=== PATIENT | male | born 1965 | race Caucasian/White ===

== ENCOUNTER → 2018-01-18 14:16 | Outpatient (REF) | payer BC, SELFPAY ==
[2018-01-18 19:08] LABS: Basophils % 0.6 % (0.1-2.0); Eosinophils # 0.2 K/mm3 (0.0-0.4); Eosinophils % 3.6 % (0.1-12.0); Hematocrit 50.3 % (42.0-52.0); Lymphocytes # 1.5 K/mm3 (0.7-4.5); Lymphocytes % 25.9 K/mm3 (10-50); Mean Corpuscular HGB Conc 31.9 g/dL (31.8-35.4); Mean Corpuscular Hemoglobin 27.5 pg (27.0-31.2); Mean Corpuscular Volume 86.3 fl (80-94); Mean Platelet Volume 8.1 fl (7.4-10.4); Monocytes # 0.4 K/mm3 (0.1-1.0); Monocytes % 7.3 % (1.7-9.3); Neutrophils # 3.7 K/mm3 (1.8-7.8); Neutrophils % 62.6 % (37.0-80.0); Platelet Count 297 K/mm3 (142-424); Red Blood Count 5.83 M/mm3 (4.60-6.20); Red Cell Distribution Width 13.5 % (11.5-17.5); White Blood Count 5.9 K/mm3 (4.8-10.8)
[2018-01-18 19:53] LABS: Alanine Aminotransferase 22 U/L (12-78); Albumin Level 3.9 gm/dL (3.4-5.0); Albumin/Globulin Ratio 1.3 (1.1-1.8); Alkaline Phosphatase 145 U/L (46-116); Anion Gap 12.6 mEq/L (5-15); Aspartate Amino Transferase 12 U/L (15-37); Bilirubin,Total 0.3 mg/dL (0.2-1.0); Blood Urea Nitrogen 14 mg/dL (7-18); Calcium 9.4 mg/dL (8.5-10.1); Carbon Dioxide 28 mmol/L (21.0-32.0); Chloride 102 mmol/L (98-107); Chol/HDL Ratio 6.8 (1-3.5); Cholesterol 230 mg/dL (140-200); Estimated Glomerular Filt Rate 88 ml/min (>60); GFR (African American) 106 ML/MIN (>60); Glucose 365 mg/dL (74-106); HDL Cholesterol 34 mg/dL (27-67); LDL Cholesterol 146 mg/dL (0-130); Potassium 4.6 mmoL/L (3.5-5.1); Sodium 138 mmol/L (136-145); T4 (Thyroxine) 9.8 ug/dl (4.7-13.3); Thyroid Stimulating Hormone 0.84 uIU/ml (0.358-3.740); Total Protein,Serum 6.9 gm/dL (6.4-8.2); Triglycerides 251 mg/dL (30-200); VLDL Cholesterol 50 mg/dL (0-40)
== END ==
LOC: LAB 14:16
PROVIDERS: Visit Provider Nurse Practitioner Family
DX: E11.9 Type 2 diabetes mellitus without complications (principal)
CPT/HCPCS: 80053; 80061; 82652; 83036; 84436; 84443; 85025

== ENCOUNTER → 2018-02-27 15:42 | Outpatient (REF) | payer BC, SELFPAY ==
[2018-02-27 19:36] LABS: Anion Gap 12.3 mEq/L (5-15); Blood Urea Nitrogen 14 mg/dL (7-18); Calcium 9.5 mg/dL (8.5-10.1); Carbon Dioxide 28 mmol/L (21.0-32.0); Chloride 102 mmol/L (98-107); Creatinine,Serum 0.96 mg/dL (0.70-1.30); Estimated Glomerular Filt Rate 82 ml/min (>60); GFR (African American) 99 ML/MIN (>60); Glucose 244 mg/dL (74-106); Potassium 4.3 mmoL/L (3.5-5.1); Sodium 138 mmol/L (136-145)
[2018-02-27 20:37] LABS: Hemoglobin A1C 9.4 % (0.0-7.0)
== END ==
LOC: LAB 15:42
PROVIDERS: Visit Provider Physician Assistant
DX: E11.9 Type 2 diabetes mellitus without complications (principal)
CPT/HCPCS: 80048; 83036

== ENCOUNTER 2018-05-23 01:48 | Inpatient (IN) ==
--- NOTE | 2018-05-23 02:19 | Emergency Department Note ---
ED Disposition Clinical Impression: Pancreatitis Qualifiers: Chronicity: acute Pancreatitis type: unspecified pancreatitis type Acute pancreatitis complication: no infection or necrosis Qualified Code(s): K85.90 - Acute pancreatitis without necrosis or infection, unspecified Disposition: Admitted as Observation Condition on Discharge: Good Referrals: Prasanth Burt MD [Primary Care Provider] - - Critical Care Critical Care Time: No Attestation: On 05/23/18, the high probability of a clinically significant, sudden or life threatening deterioration of the following system(s) required my full and direct attention, intervention and personal management. The time I documented below is in addition to time spent performing reported procedures but includes the following listed in this critical care notation. Medical Decision Making - Medical Records Medical records reviewed: Yes: I reviewed the patient's medical records. - Romero Inquiry Pt receiving controlled substance: No Vital Signs: 05/23/18 01:55 05/23/18 02:49 Temperature 97.9 F 98.9 F Temperature Source Oral Oral Pulse Rate [Right Brachial] 84 85 Respiratory Rate 16 16 Blood Pressure [Right Arm] 174/111 140/93 Blood Pressure Mean [Right Arm] 132 108 02 Sat by Pulse Oximetry 100 99 Oxygen Delivery Method Room Air - Lab Data Lab results reviewed: Yes: I reviewed the patient's lab results. Lab Results 05/23/18 02:00: Urine Color Yellow, Urine Appearance Clear, Urine pH 6.5, Ur Specific [place] 1.020, Urine Protein Negative, Urine Glucose (UA) 1+, Urine Ketones Negative, Urine Blood Negative, Urine Nitrate Negative, Urine Bilirubin Negative, Urine Urobilinogen 1.0, Ur Leukocyte Esterase Negative, Urine WBC 3-5 , Ur Squamous Epith Cells Occasional, Urine Bacteria Trace 05/23/18 02:00: WBC 10.1, RBC 5.50, Hgb 15.5, Hct 45.9, MCV 83.4, MCH 28.1, MCHC 33.7, RDW 13.5, Plt Count 288, MPV 6.8 L, Neut % (Auto) 63.4, Lymph % (Auto ) 25.1, [place] % (Auto) 8.2, Eos % (Auto) 2.8, Baso % (Auto) 0.5, Neut # (Auto) 6.4, Lymph # (Auto) 2.5, [place] # (Auto) 0.8, Eos # (Auto) 0.3, Baso # (Auto) 0.1 05/23/18 02:00: Sodium 140, Potassium 3.9, Chloride 104, Carbon Dioxide 32, Anion Gap 7.9, BUN 24 H, Creatinine 1.00, Estimated Creat Clear 119, Estimated GFR 78, Est GFR ( Amer) 94, Glucose 158 H, Calcium 9.2, Total Bilirubin 0.4, AST 5 L, ALT 27, Alkaline Phosphatase 116, Total Protein 7.4, Albumin 3.8, Globulin 3.6 H, Albumin/Globulin Ratio 1.1, Amylase 144 H, Lipase 1223 H Result diagrams: 05/23/18 02:00 05/23/18 02:00 Orders (Tests/Meds): ED MEDICATIONS Discontinued Medications Generic Name Dose Route Start Last Admin Trade Name Freq PRN Reason Stop Dose Admin Sodium Chloride 1,000 mls @ 999 mls/hr 05/23/18 02:00 05/23/18 02:49 Sod Chlor 0.9% 1000ml Bag IV 05/23/18 03:00 999 mls/hr .Q1H1M CIARRA Administration Ketorolac Tromethamine 30 mg 05/23/18 01:59 05/23/18 02:49 Toradol 30mg/Ml Vial IV 05/23/18 02:00 30 mg ONCE ONE Administration ORDERS Category Date Time Status CT abdomen pelvis wo con Stat Cat Scan 05/23/18 01:58 Ordered - CT Data CT Scan: Abdomen, Pelvis Time Received: 03:[address] Reviewed: Yes: I have viewed the radiologist's interpretation Preliminary Findings: Abnormal (pancreatitis) Nausea/Vomiting/Diarrhea HPI - General Chief complaint: Back Pain/Injury Stated complaint: Back Pain radiating around to abdomen Time Seen by Provider: 05/23/18 02:19 Mode of Arrival: Ambulatory Source of Information: Patient, Medical Record Limitations: No Limitations Description of Symptoms (Recalled from ER Triage Doc. by RN): Reports right flank/back pain that radiates into his stomach. Denies hx of kidney stones, denies any other symptoms. - History of Present Illness HPI Narrative: upper abd pain wityh rad to back over the last 2 days MD complaint: nausea, vomiting, abdominal pain Onset (ago): day(s) Associated Abdominal Pain: Yes Location of pain: epigastric Severity: moderate Associated symptoms: denies other symptoms - Related Data Home Medications Medication Instructions Recorded Confirmed fluticasone 50 mcg/actuation nasal 1 spray INTRANASAL DAILY g 11/22/17 05/23/18 spray,suspension Aspirin [Low Dose Aspirin EC] 81 mg PO ONCE 05/23/18 05/23/18 Atorvastatin Calcium [Atorvastatin 10 mg PO DAILY 05/23/18 05/23/18 10mg Tab] Ergocalciferol (Vitamin D2) 50,000 unit PO WEEKLY 05/23/18 05/23/18 [Vitamin D2] Lisinopril [Lisinopril 2.5mg Tab] 2.5 mg PO DAILY 05/23/18 05/23/18 Metformin HCl [Glucophage] 1,000 mg PO BID 05/23/18 05/23/18 Pantoprazole Sodium [Protonix 40mg 40 mg PO DAILY 05/23/18 05/23/18 tablet] buPROPion HCl [Wellbutrin 75mg 75 mg PO BID 05/23/18 05/23/18 Tablet] glipiZIDE [Glipizide ER] 10 mg PO DAILY 05/23/18 05/23/18 Allergies Allergy/AdvReac Type Severity Reaction Status Date / Time CHICKEN MEAT Allergy Unknown THROAT Uncoded 03/28/18 14:56 CLOSES, MOUTH SWELLS [facility] History I have reviewed the patient's past medical history: Yes Medical History: Reports:: Diabetes Mellitus Type 2, Gastroesophageal Reflux Disease(GERD) Denies:: Cancer, MRSA Other Surgeries: Yes: No Previous Surgery Amputation: No Fractures: No - Social History Smoking Status: Never smoker Tobacco Type: cigarettes Alcohol Intake: never Substance Use Type: denies use Occupational Status: employed Housing: house Household Members: spouse - Psychiatric History Expresses thoughts of harming self/others: None Suicide Plan Description: No Plan Family Hx:: Non-contributory ROS Obtained: Yes All systems reviewed & no additional complaints - Constitutional Constitutional: Denies fever(s) - Eyes Eyes: Denies change in vision - ENT Ears, Nose, Mouth, and Throat: Denies sore throat - Cardiovascular Cardiovascular: Denies chest pain - Respiratory Respiratory: No cough - Gastrointestinal Gastrointestingal: Reports: abdominal pain, nausea, vomiting - Genitourinary Male Genitourinary: Denies hematuria - Musculoskeletal Musculoskeletal: Denies joint pain, Denies joint swelling - Integumentary/Breasts Skin/Breast: Denies rash - Neurologic Neurologic: Denies seizure-like activity Physical Exam - General General appearance: in no apparent distress - Head Head exam: normocephalic - Eye Eye exam: Present: PERRL, EOMI. Absent: scleral icterus - ENT ENT exam: Present: mucous membranes dry - Neck Neck exam: Present: trachea midline - Respiratory Respiratory exam: Absent: respiratory distress - Cardiovascular Cardiovascular exam: Present: regular rate - Abdominal Exam Abdominal exam: Present: soft, tenderness Abdominal tenderness: Present: epigastrium, moderate - Extremities Exam Extremities exam: Absent: calf tenderness - Back Exam Back exam: Absent: CVA tenderness (L) - Neurological Exam Neurological exam: Present: alert, oriented X3, CN II-XII intact - Psychiatric Psychiatric exam: Present: normal affect - Skin Skin exam: Absent: rash
[2018-05-23 02:37] LABS: Microscopic, Urine URINE MICROSCOPIC (MICROSCOPIC)
[2018-05-23 02:47] LABS: Basophils # 0.1 K/mm3 (0-0.2); Basophils % 0.5 % (0.1-2.0); Eosinophils # 0.3 K/mm3 (0.0-0.4); Eosinophils % 2.8 % (0.1-12.0); Hematocrit 45.9 % (42.0-52.0); Hemoglobin 15.5 g/dL (14.1-18.0); Lymphocytes # 2.5 K/mm3 (0.7-4.5); Lymphocytes % 25.1 K/mm3 (10-50); Mean Corpuscular HGB Conc 33.7 g/dL (31.8-35.4); Mean Corpuscular Hemoglobin 28.1 pg (27.0-31.2); Mean Corpuscular Volume 83.4 fl (80-94); Mean Platelet Volume 6.8 fl (7.4-10.4); Monocytes # 0.8 K/mm3 (0.1-1.0); Monocytes % 8.2 % (1.7-9.3); Neutrophils # 6.4 K/mm3 (1.8-7.8); Neutrophils % 63.4 % (37.0-80.0); Platelet Count 288 K/mm3 (142-424); Red Cell Distribution Width 13.5 % (11.5-17.5); White Blood Count 10.1 K/mm3 (4.8-10.8)
[2018-05-23 02:49] LABS: Appearance,Urine CLEAR (Clear); Bilirubin,Urine Negative (Negative); Blood, Urine Negative (Negative); Color,Urine YELLOW (Yellow); Glucose,Urine (UA) 1+ (Negative); Ketones,Urine Negative (Negative); Leukocyte Esterase,Urine Negative (Negative); PH,Urine 6.5 (5.0-8.5); Protein,Urine Negative (Negative)
[2018-05-23 02:54] LABS: Albumin Level 3.8 gm/dL (3.4-5.0); Albumin/Globulin Ratio 1.1 (1.1-1.8); Anion Gap 7.9 mEq/L (5-15); Bilirubin,Total 0.4 mg/dL (0.2-1.0); Calcium 9.2 mg/dL (8.5-10.1); Globulin 3.6 gm/dl (1.3-3.2); Potassium 3.9 mmoL/L (3.5-5.1); Total Protein,Serum 7.4 gm/dL (6.4-8.2)
[2018-05-23 03:04] LABS: Bacteria,Urine Trace /lpf; Squamous Epithelial Cell,Urine Occasional #/hpf (0-5)
[2018-05-23 06:54] LABS: Chol/HDL Ratio 3.4 (1-3.5)
--- NOTE | 2018-05-23 07:35 | Pharmacy Consult Notes ---
[facility] Pharmacy VTE Monitoring - Patient Demographics Admission date: 05/23/18 Report Date: 05/23/18 Time: 07:35 Allergies/Adverse Reactions: Patient Allergies CHICKEN MEAT Allergy (Unknown, Uncoded 03/28/18 14:56) THROAT CLOSES, MOUTH SWELLS Height: 1.78 m Weight: 106.169 kg Patient Problems: Current Active Problems Pancreatitis (Acute) - VTE Risk Labs: VTE Related Lab Results Hgb 15.5 g/dL (14.1-18.0) 05/23/18 02:00 Hct 45.9 % (42.0-52.0) 05/23/18 02:00 Plt Count 288 K/mm3 (142-424) 05/23/18 02:00 BUN 24 mg/dL (7-18) H 05/23/18 02:00 Creatinine 1.00 mg/dL (0.70-1.30) 05/23/18 02:00 Estimated Creat Clear 119 mL/min (0-300) 05/23/18 02:00 VTE Score: 2 VTE Risk Level: Very Low Risk - Prophylaxis VTE Prophylaxis Ordered?: Yes Types of VTE Prophylaxis: TEDS Knee High Location of Applied Device: Bilateral Lower Extremeties - VTE Diagnosis Confirmed Treatment or plan recommended: Continue Current Treatment
[2018-05-23 11:04] LABS: Basophils % 0.4 % (0.1-2.0); Eosinophils # 0.2 K/mm3 (0.0-0.4); Eosinophils % 1.9 % (0.1-12.0); Hemoglobin 14.7 g/dL (14.1-18.0); Lymphocytes # 1.4 K/mm3 (0.7-4.5); Lymphocytes % 11.8 K/mm3 (10-50); Mean Corpuscular HGB Conc 33.4 g/dL (31.8-35.4); Mean Corpuscular Hemoglobin 27.8 pg (27.0-31.2); Mean Corpuscular Volume 83.1 fl (80-94); Mean Platelet Volume 6.9 fl (7.4-10.4); Monocytes % 8.2 % (1.7-9.3); Neutrophils % 77.7 % (37.0-80.0); Platelet Count 267 K/mm3 (142-424); Red Blood Count 5.29 M/mm3 (4.60-6.20); Red Cell Distribution Width 13.6 % (11.5-17.5); White Blood Count 11.6 K/mm3 (4.8-10.8)
--- NOTE | 2018-05-23 13:26 | History & Physical Report ---
*Admission Date: 05/23/18 *Chief complaint: abd pain *History of present illness: this wm who is diabetic presented to ed with progressive upper abd pain with rad to back over the last 2 days and has assoc n/v and presents to ed for eval and treatment - he was found to have elevated lipase and abn ct of pancreas - no etoh and has episode a few yrs ago with no def dx - pt was admitted for eval and treatment [facility] History I have reviewed the patient's past medical history: Yes Medical History: Reports:: Diabetes Mellitus Type 2, Gastroesophageal Reflux Disease(GERD) Denies:: Cancer, MRSA Other Surgeries: Yes: No Previous Surgery Amputation: No Fractures: No - *Social History Educational Level: Completed High School Smoking Status: Never smoker Tobacco Type: cigarettes Alcohol Intake: never Substance Use Type: denies use Occupational Status: employed Housing: house Household Members: spouse - Psychiatric History Expresses thoughts of harming self/others: None Suicide Plan Description: No Plan *Family Hx:: Non-contributory Review of Systems - Review of Systems Review of systems:: pertinent systems reviewed and negative unless documented below - Constitutional Denies fever(s) - Eyes Denies change in vision - ENT Denies sore throat - *Cardiovascular Denies chest pain at rest - *Respiratory Denies cough, Denies shortness of breath with activity - *Gastrointestinal Reports abdominal pain, Reports nausea, Reports vomiting, Denies loose stools, Denies bright, red blood in stools, Denies black, tarry stools - *Genitourinary Denies blood in urine - *Musculoskeletal Denies joint pain - Integumentary/Breasts Denies rash - *Neurologic Denies dizziness, Denies seizure-like activity - Psychiatric Denies anxiety Meds Home Medications Medication Instructions Recorded Confirmed Type fluticasone 50 mcg/actuation nasal 1 spray INTRANASAL DAILY g 11/22/17 History spray,suspension Aspirin [Low Dose Aspirin EC] 81 mg PO DAILY 05/23/18 05/23/18 History Atorvastatin Calcium [Atorvastatin 10 mg PO HS 05/23/18 05/23/18 History 10mg Tab] Ergocalciferol (Vitamin D2) 50,000 unit PO WEEKLY 05/23/18 05/23/18 History [Vitamin D2] Metformin HCl [Glucophage] 1,000 mg PO BID 05/23/18 05/23/18 History buPROPion HCl [Wellbutrin 75mg 75 mg PO BID 05/23/18 05/23/18 History Tablet] glipiZIDE [Glipizide ER] 10 mg PO DAILY 05/23/18 05/23/18 History Allergies Allergy/AdvReac Type Severity Reaction Status Date / Time CHICKEN MEAT Allergy Unknown THROAT Uncoded 03/28/18 14:56 CLOSES, MOUTH SWELLS Exam Vital signs and Labs for Last 24 Hours: Temp Pulse Resp BP Pulse Ox 98.9 F 86 18 174/89 97 05/23/18 07:55 05/23/18 07:55 05/23/18 07:55 05/23/18 07:55 05/23/18 07:55 Laboratory Results - last 24 hr 05/23/18 02:00: Urine Color Yellow, Urine Appearance Clear, Urine pH 6.5, Ur Specific [place] 1.020, Urine Protein Negative, Urine Glucose (UA) 1+, Urine Ketones Negative, Urine Blood Negative, Urine Nitrate Negative, Urine Bilirubin Negative, Urine Urobilinogen 1.0, Ur Leukocyte Esterase Negative, Urine WBC 3-5 , Ur Squamous Epith Cells Occasional, Urine Bacteria Trace 05/23/18 02:00: WBC 10.1, RBC 5.50, Hgb 15.5, Hct 45.9, MCV 83.4, MCH 28.1, MCHC 33.7, RDW 13.5, Plt Count 288, MPV 6.8 L, Neut % (Auto) 63.4, Lymph % (Auto ) 25.1, [place] % (Auto) 8.2, Eos % (Auto) 2.8, Baso % (Auto) 0.5, Neut # (Auto) 6.4, Lymph # (Auto) 2.5, [place] # (Auto) 0.8, Eos # (Auto) 0.3, Baso # (Auto) 0.1 05/23/18 02:00: Sodium 140, Potassium 3.9, Chloride 104, Carbon Dioxide 32, Anion Gap 7.9, BUN 24 H, Creatinine 1.00, Estimated Creat Clear 119, Estimated GFR 78, Est GFR ( Amer) 94, Glucose 158 H, Calcium 9.2, Total Bilirubin 0.4, AST 5 L, ALT 27, Alkaline Phosphatase 116, Total Protein 7.4, Albumin 3.8, Globulin 3.6 H, Albumin/Globulin Ratio 1.1, Amylase 144 H, Lipase 1223 H 05/23/18 05:22: Triglycerides 111, Cholesterol 127 L, LDL Cholesterol 68, VLDL Cholesterol 22, HDL Cholesterol 37, Cholesterol/HDL Ratio 3.4 05/23/18 06:30: POC Glucose 97 05/23/18 10:30: WBC 11.6 H, RBC 5.29, Hgb 14.7, Hct 44.0, MCV 83.1, MCH 27.8, MCHC 33.4, RDW 13.6, Plt Count 267, MPV 6.9 L, Neut % (Auto) 77.7, Lymph % (Auto ) 11.8, [place] % (Auto) 8.2, Eos % (Auto) 1.9, Baso % (Auto) 0.4, Neut # (Auto) 9.0 H, Lymph # (Auto) 1.4, [place] # (Auto) 1.0, Eos # (Auto) 0.2, Baso # (Auto) 0.0 05/23/18 10:30: Lipase 648 H 05/23/18 10:58: POC Glucose 120 H I & O for Last 24 hours: Intake & Output 05/21/18 05/22/18 05/23/18 05/24/18 11:59 11:59 11:59 11:59 Intake Total 585 / 585 Output Total 400 / 400 Balance 185 / 185 Weight 234 lb 1 oz - Constitutional no acute distress, obese - *Routine HEENT Exam Eye: Present: EOMI, PERRL. Absent: conjunctival icterus ENT: Present: mucous membranes dry - *Routine Neck Exam Absent: JVD - *Routine Respiratory Exam Present: CTA bilaterally - *Routine Cardiovascular Exam Present: RRR, murmur - *Routine Abdominal Exam Present: soft - *Routine Extremities Exam Absent: calf tenderness - *Routine Skin Exam Present: intact - *Routine Neurological Exam Present: alert, oriented X3, CN II-XII intact - Routine Psychiatric Exam Present: normal affect Assessment and Plan (1) Pancreatitis Current visit: Yes Status: Acute Qualifiers: Chronicity: acute Pancreatitis type: unspecified pancreatitis type Acute pancreatitis complication: no infection or necrosis Qualified Code(s): K85.90 - Acute pancreatitis without necrosis or infection, unspecified Category: Medical Code(s): K85.90 - Acute pancreatitis without necrosis or infection, unspecified (2) Diabetes mellitus Current visit: No Status: Chronic Qualifiers: Diabetes mellitus type: type 2 Diabetes mellitus usp insulin use: without terminal operations manager use Diabetes mellitus complication status: with hyperglycemia Qualified Code(s): E11.65 - Type 2 diabetes mellitus with hyperglycemia Category: Medical Code(s): E11.9 - Type 2 diabetes mellitus without complications
[2018-05-24 06:11] LABS: Anion Gap 12.5 mEq/L (5-15); Calcium 8.5 mg/dL (8.5-10.1); Potassium 3.5 mmoL/L (3.5-5.1)
[2018-05-24 06:12] LABS: Basophils % 0.1 % (0.1-2.0); Eosinophils # 0.1 K/mm3 (0.0-0.4); Eosinophils % 0.3 % (0.1-12.0); Hematocrit 44.5 % (42.0-52.0); Hemoglobin 14.7 g/dL (14.1-18.0); Lymphocytes # 1.3 K/mm3 (0.7-4.5); Lymphocytes % 8.9 K/mm3 (10-50); Mean Corpuscular HGB Conc 33.1 g/dL (31.8-35.4); Mean Corpuscular Hemoglobin 27.5 pg (27.0-31.2); Mean Corpuscular Volume 83.1 fl (80-94); Mean Platelet Volume 6.9 fl (7.4-10.4); Monocytes # 1.3 K/mm3 (0.1-1.0); Monocytes % 8.8 % (1.7-9.3); Neutrophils # 11.9 K/mm3 (1.8-7.8); Neutrophils % 81.8 % (37.0-80.0); Platelet Count 294 K/mm3 (142-424); Red Blood Count 5.36 M/mm3 (4.60-6.20); Red Cell Distribution Width 13.4 % (11.5-17.5); White Blood Count 14.5 K/mm3 (4.8-10.8)
--- NOTE | 2018-05-24 09:32 | Progress Note ---
Internal Medicine - PN: Subj Interval history: still with pain - lipase better Exam Vital signs and Labs for Last 24 Hours: Temp Pulse Resp BP Pulse Ox 98.1 F 112 H 20 140/81 94 L 05/24/18 07:49 05/24/18 07:49 05/24/18 07:49 05/24/18 07:49 05/24/18 07:49 Laboratory Results - last 24 hr 05/23/18 10:30: WBC 11.6 H, RBC 5.29, Hgb 14.7, Hct 44.0, MCV 83.1, MCH 27.8, MCHC 33.4, RDW 13.6, Plt Count 267, MPV 6.9 L, Neut % (Auto) 77.7, Lymph % (Auto) 11.8, [place] % (Auto) 8.2, Eos % (Auto) 1.9, Baso % (Auto) 0.4, Neut # (Auto) 9.0 H, Lymph # (Auto) 1.4, [place] # (Auto) 1.0, Eos # (Auto) 0.2, Baso # (Auto) 0.0 05/23/18 10:30: Lipase 648 H 05/23/18 10:30: Troponin I < 0.02 05/23/18 10:58: POC Glucose 120 H 05/23/18 16:46: POC Glucose 125 H 05/23/18 20:05: POC Glucose 144 H 05/24/18 05:43: WBC 14.5 H, RBC 5.36, Hgb 14.7, Hct 44.5, MCV 83.1, MCH 27.5, MCHC 33.1, RDW 13.4, Plt Count 294, MPV 6.9 L, Neut % (Auto) 81.8 H, Lymph % (Auto) 8.9 L, [place] % (Auto) 8.8, Eos % (Auto) 0.3, Baso % (Auto) 0.1, Neut # (Auto) 11.9 H, Lymph # (Auto) 1.3, [place] # (Auto) 1.3 H, Eos # (Auto) 0.1, Baso # (Auto) 0.0 05/24/18 05:43: Sodium 133 L, Potassium 3.5, Chloride 100, Carbon Dioxide 24 D, Anion Gap 12.5, BUN 16 D, Creatinine 0.89, Estimated Creat Clear 141, Estimated GFR 89, Est GFR ( Amer) 107, Glucose 181 H, Calcium 8.5, Lipase 241 05/24/18 06:16: POC Glucose 156 H I & O for Last 24 hours: Intake & Output 05/21/18 05/22/18 05/23/18 05/24/18 11:59 11:59 11:59 11:59 Intake Total 585 / 585 2296 / 2296 Output Total 400 / 400 1650 / 1650 Balance 185 / 185 646 / 646 Weight 234 lb 1 oz - Constitutional no acute distress - *Routine HEENT Exam Head: Present: normocephalic Eye: Present: EOMI, PERRL ENT: Present: mucous membranes dry - *Routine Neck Exam Present: supple - *Routine Respiratory Exam Present: CTA bilaterally - *Routine Cardiovascular Exam Present: RRR, murmur - *Routine Abdominal Exam Present: soft - *Routine Extremities Exam Absent: full ROM - *Routine Skin Exam Present: intact - *Routine Neurological Exam Present: alert, oriented X3, CN II-XII intact - Routine Psychiatric Exam Present: normal affect Assessment and Plan (1) Pancreatitis Current visit: Yes Status: Acute Qualifiers: Chronicity: acute Pancreatitis type: unspecified pancreatitis type Acute pancreatitis complication: no infection or necrosis Qualified Code(s): K85.90 - Acute pancreatitis without necrosis or infection, unspecified Category: Medical Code(s): K85.90 - Acute pancreatitis without necrosis or infection, unspecified (2) Diabetes mellitus Current visit: No Status: Chronic Qualifiers: Diabetes mellitus type: type 2 Diabetes mellitus intermission coordinator insulin use: without intermission coordinator use Diabetes mellitus complication status: with hyperglycemia Qualified Code(s): E11.65 - Type 2 diabetes mellitus with hyperglycemia Category: Medical Code(s): E11.9 - Type 2 diabetes mellitus without complications
--- NOTE | 2018-05-24 15:00 | Consult Report ---
*Admission Date: 05/23/18 *Chief complaint: Upper abdominal pain *History of present illness: This is a 53-year-old gentleman seen in consultation from the service of Dr. Burt for evaluation regarding pancreatitis and regarding possible gallbladder disease. He presented yesterday to the emergency department with progressive pain in the upper abdomen with some radiation to the back. He had(s) some assoc iated nausea and vomiting. Upon presentation he was discovered to have an elevated lipase of 1223. His liver function studies were essentially normal. A CT scan revealed changes consistent with pancreatitis as he did have some mild peripancreatic head edema with minimal fat stranding. This CT scan was without contrast. Follow-up ultrasound revealed no gallstones, no wall thickening, and no erlin- cholecystic fluid. Mild pancreatic head fullness was noted on the ultrasound. The patient desires alcohol use. The patient states that he does have a few medications that have "possible increased risk of pancreatitis" on the warning label. Review of Systems - Constitutional Denies excessive sweating - Eyes Denies change in vision - ENT Denies change in voice - *Cardiovascular Denies chest pain - *Respiratory Denies cough - *Gastrointestinal Reports abdominal pain, Reports nausea, Reports vomiting, Denies coffee ground vomit, Denies bright, red blood in stools - *Genitourinary Denies blood in urine - *Neurologic Denies dizziness, Denies seizure-like activity - Hematologic/Lymphatic Denies easy bleeding [facility] History Medical History: Reports:: Diabetes Mellitus Type 2, Gastroesophageal Reflux Disease(GERD) Denies:: Cancer, MRSA Other Surgeries: Yes: No Previous Surgery Amputation: No Fractures: No - *Social History Educational Level: Completed High School Smoking Status: Never smoker Tobacco Type: cigarettes Alcohol Intake: never Substance Use Type: denies use Occupational Status: employed Housing: house Household Members: spouse - Psychiatric History Expresses thoughts of harming self/others: None Suicide Plan Description: No Plan *Family Hx:: Non-contributory Meds Home Medications Medication Instructions Recorded Confirmed Type fluticasone 50 mcg/actuation nasal 1 spray INTRANASAL DAILY g 11/22/17 05/23/18 History spray,suspension Aspirin [Low Dose Aspirin EC] 81 mg PO DAILY 05/23/18 05/23/18 History Atorvastatin Calcium [Atorvastatin 10 mg PO HS 05/23/18 05/23/18 History 10mg Tab] Ergocalciferol (Vitamin D2) 50,000 unit PO WEEKLY 05/23/18 05/23/18 History [Vitamin D2] Metformin HCl [Glucophage] 1,000 mg PO BID 05/23/18 05/23/18 History buPROPion HCl [Wellbutrin 75mg 75 mg PO BID 05/23/18 05/23/18 History Tablet] glipiZIDE [Glipizide ER] 10 mg PO DAILY 05/23/18 05/23/18 History Allergies Allergy/AdvReac Type Severity Reaction Status Date / Time chicken derived Allergy Anaphylaxis Verified 05/23/18 13:38 poult Allergy Severe Swelling Uncoded 05/24/18 14:47 of Lip/Tongue/Throat Exam Vital signs and Labs for Last 24 Hours: Temp Pulse Resp BP Pulse Ox 98.1 F 112 H 20 140/81 94 L 05/24/18 07:49 05/24/18 07:49 05/24/18 07:49 05/24/18 07:49 05/24/18 07:49 Laboratory Results - last 24 hr 05/23/18 16:46: POC Glucose 125 H 05/23/18 20:05: POC Glucose 144 H 05/24/18 05:43: WBC 14.5 H, RBC 5.36, Hgb 14.7, Hct 44.5, MCV 83.1, MCH 27.5, MCHC 33.1, RDW 13.4, Plt Count 294, MPV 6.9 L, Neut % (Auto) 81.8 H, Lymph % (Auto) 8.9 L, [place] % (Auto) 8.8, Eos % (Auto) 0.3, Baso % (Auto) 0.1, Neut # (Auto) 11.9 H, Lymph # (Auto) 1.3, [place] # (Auto) 1.3 H, Eos # (Auto) 0.1, Baso # (Auto) 0.0 05/24/18 05:43: Sodium 133 L, Potassium 3.5, Chloride 100, Carbon Dioxide 24 D, Anion Gap 12.5, BUN 16 D, Creatinine 0.89, Estimated Creat Clear 141, Estimated GFR 89, Est GFR ( Amer) 107, Glucose 181 H, Calcium 8.5, Lipase 241 05/24/18 06:16: POC Glucose 156 H 05/24/18 11:41: POC Glucose 172 H I & O for Last 24 hours: Intake & Output 05/22/18 05/23/18 05/24/18 05/25/18 11:59 11:59 11:59 11:59 Intake Total 585 / 585 2296 / 2296 0 / 0 Output Total 400 / 400 1900 / 1900 Balance 185 / 185 396 / 396 0 / 0 Weight 234 lb 1 oz 234 lb 1.001 oz - Constitutional no acute distress - *Routine Respiratory Exam Absent: respiratory distress - *Routine Cardiovascular Exam Present: RRR - *Routine Abdominal Exam Present: soft, tenderness Comments: increased TTP in epigastrum Results - Labs 05/24/18 05:43 05/24/18 05:43 Laboratory Results - last 24 hr 05/23/18 16:46: POC Glucose 125 H 05/23/18 20:05: POC Glucose 144 H 05/24/18 05:43: WBC 14.5 H, RBC 5.36, Hgb 14.7, Hct 44.5, MCV 83.1, MCH 27.5, MCHC 33.1, RDW 13.4, Plt Count 294, MPV 6.9 L, Neut % (Auto) 81.8 H, Lymph % (Auto) 8.9 L, [place] % (Auto) 8.8, Eos % (Auto) 0.3, Baso % (Auto) 0.1, Neut # (Auto) 11.9 H, Lymph # (Auto) 1.3, [place] # (Auto) 1.3 H, Eos # (Auto) 0.1, Baso # (Auto) 0.0 05/24/18 05:43: Sodium 133 L, Potassium 3.5, Chloride 100, Carbon Dioxide 24 D, Anion Gap 12.5, BUN 16 D, Creatinine 0.89, Estimated Creat Clear 141, Estimated GFR 89, Est GFR ( Amer) 107, Glucose 181 H, Calcium 8.5, Lipase 241 05/24/18 06:16: POC Glucose 156 H 05/24/18 11:41: POC Glucose 172 H - Imaging CT scan - abdomen: report reviewed US - abdomen: report reviewed Assessment and Plan (1) Pancreatitis Current visit: Yes Status: Acute Qualifiers: Chronicity: acute Pancreatitis type: unspecified pancreatitis type Acute pancreatitis complication: no infection or necrosis Qualified Code(s): K85.90 - Acute pancreatitis without necrosis or infection, unspecified Category: Medical Code(s): K85.90 - Acute pancreatitis without necrosis or infection, unspecified The patient's pancreatitis is less likely secondary to biliary disease as there is no evidence of gallstones or biliary dilatation. Although the patient's CT s can was without contrast, it does show changes consistent with at least mild pancreatitis and these changes were also noted on ultrasound. No obvious evidence of biliary disease noted on either CT scan or ultrasound. Although the patient's lipase has improved dramatically, the most likely source of his ongoing pain remains pancreatitis. Currently, there is no strong evidence of a biliary source for either the patient's current pain or his pancreatitis. Certainly further/ongoing evaluation with regard to possible biliary disease is warranted; however, the likelihood of an abnormal ejection fraction on hepatobiliary scan is significantly high given his acute illness (pancreatitis). Acute cholecystitis as would be evidenced by lack of tracer in the gallbladder may be evident if the nuclear medicine study was completed; however, no convincing evidence of acute cholecystitis is otherwise noted (specifically no wall thickening or other abnormality on ultrasound). Hold on HIDA (for now) IVFs/Limited PO intake (clears with advancement to low fat reasonable if he continues to improve) Repeat labs in AM (2) Diabetes mellitus Current visit: No Status: Chronic Qualifiers: Diabetes mellitus type: type 2 Diabetes mellitus retirement insulin use: without termite treater helper use Diabetes mellitus complication status: with hyperglycemia Qualified Code(s): E11.65 - Type 2 diabetes mellitus with hyperglycemia Category: Medical Code(s): E11.9 - Type 2 diabetes mellitus without complications
--- NOTE | 2018-05-25 06:39 | Progress Note ---
Subjective Patient reports: pain is less Exam Vital signs and Labs for Last 24 Hours: Temp Pulse Resp BP Pulse Ox 98.2 F 80 14 138/76 98 05/25/18 04:00 05/25/18 04:00 05/25/18 04:00 05/25/18 04:00 05/25/18 04:00 Laboratory Results - last 24 hr 05/24/18 11:41: POC Glucose 172 H 05/24/18 16:39: POC Glucose 160 H 05/24/18 20:17: POC Glucose 133 H 05/25/18 06:05: POC Glucose 122 H I & O for Last 24 hours: Intake & Output 05/22/18 05/23/18 05/24/18 05/25/18 11:59 11:59 11:59 11:59 Intake Total 585 / 585 2296 / 2296 4024 / 4024 Output Total 400 / 400 1900 / 1900 50 / 50 Balance 185 / 185 396 / 396 3974 / 3974 Weight 234 lb 1 oz 234 lb 1.001 oz - Constitutional no acute distress - *Routine Abdominal Exam Present: soft, tenderness Comments: TTP improved Progress Note: A&P (1) Pancreatitis Status: Acute Assessment and plan: improving symptomatically (essentially resolved biochemically) continue treatment as per PCP slow diet advancement as tolerated and as per PCP IVFs to slowly wean as per PCP Current Visit: Yes (2) Diabetes mellitus Status: Chronic Current Visit: No
[2018-05-25 08:49] LABS: Basophils % 0.1 % (0.1-2.0); Eosinophils # 0.2 K/mm3 (0.0-0.4); Eosinophils % 1.2 % (0.1-12.0); Hematocrit 40.4 % (42.0-52.0); Hemoglobin 13.7 g/dL (14.1-18.0); Lymphocytes # 1.5 K/mm3 (0.7-4.5); Lymphocytes % 12.3 K/mm3 (10-50); Mean Corpuscular HGB Conc 33.9 g/dL (31.8-35.4); Mean Corpuscular Hemoglobin 28.3 pg (27.0-31.2); Mean Corpuscular Volume 83.6 fl (80-94); Monocytes # 1.1 K/mm3 (0.1-1.0); Monocytes % 8.5 % (1.7-9.3); Neutrophils # 9.7 K/mm3 (1.8-7.8); Neutrophils % 77.9 % (37.0-80.0); Platelet Count 286 K/mm3 (142-424); Red Blood Count 4.83 M/mm3 (4.60-6.20); Red Cell Distribution Width 13.3 % (11.5-17.5); White Blood Count 12.4 K/mm3 (4.8-10.8)
[2018-05-25 09:02] LABS: Albumin Level 2.6 gm/dL (3.4-5.0); Albumin/Globulin Ratio 0.7 (1.1-1.8); Anion Gap 11.6 mEq/L (5-15); Bilirubin,Total 0.6 mg/dL (0.2-1.0); Calcium 8.4 mg/dL (8.5-10.1); Potassium 3.6 mmoL/L (3.5-5.1); Total Protein,Serum 6.6 gm/dL (6.4-8.2)
--- NOTE | 2018-05-25 13:10 | Progress Note ---
Internal Medicine - PN: Subj *Date: 05/25/18 *Time: 08:30 Exam Vital signs and Labs for Last 24 Hours: Temp Pulse Resp BP Pulse Ox 98.8 F 92 H 16 135/81 93 L 05/25/18 08:00 05/25/18 08:00 05/25/18 08:00 05/25/18 08:00 05/25/18 08:45 Laboratory Results - last 24 hr 05/24/18 16:39: POC Glucose 160 H 05/24/18 20:17: POC Glucose 133 H 05/25/18 06:05: POC Glucose 122 H 05/25/18 08:40: WBC 12.4 H, RBC 4.83, Hgb 13.7 L, Hct 40.4 L, MCV 83.6, MCH 28.3, MCHC 33.9, RDW 13.3, Plt Count 286, MPV 7.0 L, Neut % (Auto) 77.9, Lymph % (Auto) 12.3, Warren % (Auto) 8.5, Eos % (Auto) 1.2, Baso % (Auto) 0.1, Neut # (Auto) 9.7 H, Lymph # (Auto) 1.5, Warren # (Auto) 1.1 H, Eos # (Auto) 0.2, Baso # (Auto) 0.0 05/25/18 08:40: Sodium 138, Potassium 3.6, Chloride 103, Carbon Dioxide 27, Anion Gap 11.6, BUN 16, Creatinine 0.81, Estimated Creat Clear 155, Estimated GFR 99, Est GFR ( Amer) 120, Glucose 134 H, Calcium 8.4 L, Total Bilirubin 0.6, AST 6 L, ALT 24, Alkaline Phosphatase 75, Total Protein 6.6, Albumin 2.6 L, Globulin 4.0 H, Albumin/Globulin Ratio 0.7 L, Amylase 31, Lipase 85 05/25/18 11:40: POC Glucose 117 H I & O for Last 24 hours: Intake & Output 05/23/18 05/24/18 05/25/18 05/26/18 11:59 11:59 11:59 11:59 Intake Total 585 / 585 2296 / 2296 4384 / 4384 Output Total 400 / 400 1900 / 1900 50 / 50 Balance 185 / 185 396 / 396 4334 / 4334 Weight 234 lb 1 oz 234 lb 5 oz - *Routine HEENT Exam Head: Present: normocephalic Eye: Present: EOMI, PERRL ENT: Present: mucous membranes moist - *Routine Neck Exam Present: supple. Absent: lymphadenopathy - *Routine Respiratory Exam Present: CTA bilaterally - *Routine Cardiovascular Exam Present: RRR - *Routine Abdominal Exam Present: tenderness. Absent: distended - *Routine Extremities Exam Absent: cyanosis, clubbing, edema - *Routine Skin Exam Present: warm. Absent: rash - *Routine Neurological Exam Present: alert, oriented X3 Assessment and Plan (1) Pancreatitis Current visit: Yes Status: Acute Qualifiers: Chronicity: acute Pancreatitis type: unspecified pancreatitis type Acute pancreatitis complication: no infection or necrosis Qualified Code(s): K85.90 - Acute pancreatitis without necrosis or infection, unspecified Category: Medical Code(s): K85.90 - Acute pancreatitis without necrosis or infection, unspecified (2) Diabetes mellitus Current visit: No Status: Chronic Qualifiers: Diabetes mellitus type: type 2 Diabetes mellitus ocean transportation intermediary insulin use: without ocean transportation intermediary use Diabetes mellitus complication status: with hyperglycemia Qualified Code(s): E11.65 - Type 2 diabetes mellitus with hyperglycemia Category: Medical Code(s): E11.9 - Type 2 diabetes mellitus without complications - Assessment and plan all Dx Assessment and Plan for all problems:: Rounded with Dr. Burt all orders per [place]
[2018-05-25 20:11] LABS: Creatine Kinase 42 U/L (39-308)
[2018-05-26 01:39] LABS: Creatine Kinase 40 U/L (39-308)
[2018-05-26 05:50] LABS: Basophils % 0.2 % (0.1-2.0); Eosinophils # 0.2 K/mm3 (0.0-0.4); Eosinophils % 1.7 % (0.1-12.0); Hematocrit 38.6 % (42.0-52.0); Hemoglobin 12.8 g/dL (14.1-18.0); Lymphocytes # 1.4 K/mm3 (0.7-4.5); Mean Corpuscular HGB Conc 33.1 g/dL (31.8-35.4); Mean Corpuscular Hemoglobin 27.6 pg (27.0-31.2); Mean Corpuscular Volume 83.3 fl (80-94); Mean Platelet Volume 7.3 fl (7.4-10.4); Monocytes % 10.6 % (1.7-9.3); Neutrophils # 7.1 K/mm3 (1.8-7.8); Neutrophils % 73.6 % (37.0-80.0); Platelet Count 282 K/mm3 (142-424); Red Blood Count 4.63 M/mm3 (4.60-6.20); Red Cell Distribution Width 13.3 % (11.5-17.5); White Blood Count 9.6 K/mm3 (4.8-10.8)
[2018-05-26 06:04] LABS: Albumin Level 2.5 gm/dL (3.4-5.0); Albumin/Globulin Ratio 0.7 (1.1-1.8); Anion Gap 12.3 mEq/L (5-15); Bilirubin,Total 0.7 mg/dL (0.2-1.0); Calcium 8.3 mg/dL (8.5-10.1); Globulin 3.8 gm/dl (1.3-3.2); Potassium 3.3 mmoL/L (3.5-5.1); Total Protein,Serum 6.3 gm/dL (6.4-8.2)
--- NOTE | 2018-05-26 06:30 | Progress Note ---
Subjective Patient reports: still having pain (increased "heartburn and chest pain" yesterday...some response to GI cocktail), other Narrative: The patient states that he had "heartburn and chest pain" yesterday. He states that a "heart workup yesterday showed nothing". He feels "okay now". A GI cocktail was ordered by primary service and he states that "it worked some". He is still requiring narcotics for pain control as he is recovering from pancreatitis. Exam Vital signs and Labs for Last 24 Hours: Temp Pulse Resp BP Pulse Ox 98.0 F 92 H 16 140/68 98 05/26/18 04:00 05/26/18 04:00 05/26/18 04:00 05/26/18 04:00 05/26/18 04:00 Laboratory Results - last 24 hr 05/25/18 08:40: WBC 12.4 H, RBC 4.83, Hgb 13.7 L, Hct 40.4 L, MCV 83.6, MCH 28.3, MCHC 33.9, RDW 13.3, Plt Count 286, MPV 7.0 L, Neut % (Auto) 77.9, Lymph % (Auto) 12.3, [place] % (Auto) 8.5, Eos % (Auto) 1.2, Baso % (Auto) 0.1, Neut # (Auto) 9.7 H, Lymph # (Auto) 1.5, [place] # (Auto) 1.1 H, Eos # (Auto) 0.2, Baso # (Auto) 0.0 05/25/18 08:40: Sodium 138, Potassium 3.6, Chloride 103, Carbon Dioxide 27, Anion Gap 11.6, BUN 16, Creatinine 0.81, Estimated Creat Clear 155, Estimated GFR 99, Est GFR ( Amer) 120, Glucose 134 H, Calcium 8.4 L, Total Bilir ubin 0.6, AST 6 L, ALT 24, Alkaline Phosphatase 75, Total Protein 6.6, Albumin 2.6 L, Globulin 4.0 H, Albumin/Globulin Ratio 0.7 L, Amylase 31, Lipase 85 05/25/18 11:40: POC Glucose 117 H 05/25/18 16:44: POC Glucose 116 H 05/25/18 19:41: Total Creatine Kinase 42, CK-MB (CK-2) < 0.5, CK-MB (CK-2) Rel Index 1.2, Troponin I < 0.02 05/25/18 21:45: POC Glucose 158 H 05/26/18 01:11: Total Creatine Kinase 40, CK-MB (CK-2) < 0.5, CK-MB (CK-2) Rel Index 1.3, Troponin I < 0.02 05/26/18 05:33: WBC 9.6, RBC 4.63, Hgb 12.8 L, Hct 38.6 L, MCV 83.3, MCH 27.6, MCHC 33.1, RDW 13.3, Plt Count 282, MPV 7.3 L, Neut % (Auto) 73.6, Lymph % (Auto) 14.0, Carroll % (Auto) 10.6 H, Eos % (Auto) 1.7, Baso % (Auto) 0.2, Neut # (Auto) 7.1, Lymph # (Auto) 1.4, Carroll # (Auto) 1.0, Eos # (Auto) 0.2, Baso # (Auto) 0.0 05/26/18 05:33: Sodium 139, Potassium 3.3 L, Chloride 104, Carbon Dioxide 26, Anion Gap 12.3, BUN 10 D, Creatinine 0.81, Estimated Creat Clear 155, Estimated GFR 99, Est GFR ( Amer) 120, Glucose 143 H, Calcium 8.3 L, Total Bilirubin 0.7, AST 10 L D, ALT 23, Alkaline Phosphatase 74, Total Protein 6.3 L, Albumin 2.5 L, Globulin 3.8 H, Albumin/Globulin Ratio 0.7 L I & O for Last 24 hours: Intake & Output 05/23/18 05/24/18 05/25/18 05/26/18 11:59 11:59 11:59 11:59 Intake Total 585 / 585 2296 / 2296 4384 / 4384 4326 / 4326 Output Total 400 / 400 1900 / 1900 50 / 50 Balance 185 / 185 396 / 396 4334 / 4334 4326 / 4326 Weight 234 lb 1 oz 234 lb 5 oz - Constitutional no acute distress - *Routine Abdominal Exam Present: soft Progress Note: A&P (1) Pancreatitis Status: Acute Assessment and plan: Biochemically improving... Overall, improving with regard to pain as he is requiring slightly less medication. Current Visit: Yes (2) Diabetes mellitus Status: Chronic Current Visit: No (3) Heartburn Status: Acute Assessment and plan: Esophagogastroduodenoscopy later today Continue PPI Current Visit: Yes (4) Atypical chest pain Status: Acute Current Visit: Yes
--- NOTE | 2018-05-26 09:51 | Progress Note ---
Internal Medicine - PN: Subj *Date: 05/26/18 *Time: 09:30 Exam Vital signs and Labs for Last 24 Hours: Temp Pulse Resp BP Pulse Ox 98.5 F 106 H 18 153/92 96 05/26/18 08:00 05/26/18 08:00 05/26/18 08:00 05/26/18 08:00 05/26/18 08:00 Laboratory Results - last 24 hr 05/25/18 11:40: POC Glucose 117 H 05/25/18 16:44: POC Glucose 116 H 05/25/18 19:41: Total Creatine Kinase 42, CK-MB (CK-2) < 0.5, CK-MB (CK-2) Rel Index 1.2, Troponin I < 0.02 05/25/18 21:45: POC Glucose 158 H 05/26/18 01:11: Total Creatine Kinase 40, CK-MB (CK-2) < 0.5, CK-MB (CK-2) Rel Index 1.3, Troponin I < 0.02 05/26/18 05:33: WBC 9.6, RBC 4.63, Hgb 12.8 L, Hct 38.6 L, MCV 83.3, MCH 27.6, MCHC 33.1, RDW 13.3, Plt Count 282, MPV 7.3 L, Neut % (Auto) 73.6, Lymph % (Auto) 14.0, [place] % (Auto) 10.6 H, Eos % (Auto) 1.7, Baso % (Auto) 0.2, Neut # (Auto) 7.1, Lymph # (Auto) 1.4, [place] # (Auto) 1.0, Eos # (Auto) 0.2, Baso # (Auto) 0.0 05/26/18 05:33: Sodium 139, Potassium 3.3 L, Chloride 104, Carbon Dioxide 26, Anion Gap 12.3, BUN 10 D, Creatinine 0.81, Estimated Creat Clear 155, Estimated GFR 99, Est GFR ( Amer) 120, Glucose 143 H, Calcium 8.3 L, Total Bilirubin 0.7, AST 10 L D, ALT 23, Alkaline Phosphatase 74, Total Protein 6.3 L, Albumin 2.5 L, Globulin 3.8 H, Albumin/Globulin Ratio 0.7 L 05/26/18 06:27: POC Glucose 120 H I & O for Last 24 hours: Intake & Output 05/23/18 05/24/18 05/25/18 05/26/18 11:59 11:59 11:59 11:59 Intake Total 585 / 585 2296 / 2296 4384 / 4384 4566 / 4566 Output Total 400 / 400 1900 / 1900 50 / 50 Balance 185 / 185 396 / 396 4334 / 4334 4566 / 4566 Weight 234 lb 1 oz 234 lb 5 oz - *Routine HEENT Exam Head: Present: normocephalic Eye: Present: EOMI, PERRL ENT: Present: mucous membranes moist - *Routine Neck Exam Present: supple. Absent: lymphadenopathy - *Routine Respiratory Exam Present: CTA bilaterally - *Routine Cardiovascular Exam Present: RRR - *Routine Abdominal Exam Present: soft, normoactive bowel sounds, tenderness - *Routine Extremities Exam Absent: cyanosis, clubbing, edema - *Routine Skin Exam Present: warm. Absent: rash - *Routine Neurological Exam Present: alert, oriented X3 Assessment and Plan (1) Pancreatitis Status: Acute Qualifiers: Chronicity: acute Pancreatitis type: unspecified pancreatitis type Acute pancreatitis complication: no infection or necrosis Qualified Code(s): K85.90 - Acute pancreatitis without necrosis or infection, unspecified Category: Medical Code(s): K85.90 - Acute pancreatitis without necrosis or infection, unspecified (2) Diabetes mellitus Status: Chronic Qualifiers: Diabetes mellitus type: type 2 Diabetes mellitus skilled nursing insulin use: without computer terminal operator use Diabetes mellitus complication status: with hyperglycemia Qualified Code(s): E11.65 - Type 2 diabetes mellitus with hyperglycemia Category: Medical Code(s): E11.9 - Type 2 diabetes mellitus without complications (3) Heartburn Status: Acute Category: Medical Code(s): R12 - Heartburn (4) Atypical chest pain Status: Acute Category: Medical Code(s): R07.89 - Other chest pain
--- NOTE | 2018-05-26 13:59 | Progress Note ---
[facility] Anesthesia Checklist - Structural Data Admitted From: Inpatient Planned Operative Procedure/s: egd Consent for Planned Operative Procedure(s) Verified: Yes - Airway Assessment C-Spine Mobility Assessed: Yes TMJ Mobility Assessed: Yes Dentition: Good Dentition - Neurological Assessment Level of Consciousness: Awake, Alert, Appropriate - Anesthesia Plan Anesthesia Risk discussed: Yes Anesthesia Plan: Verified ASA Class: II Anesthesia Type: [facility] History I have reviewed the patient's past medical history: Yes Medical History: Reports:: Diabetes Mellitus Type 2, Gastroesophageal Reflux Disease(GERD) Denies:: Cancer, MRSA Other Surgeries: Yes: No Previous Surgery Amputation: No Fractures: No - *Social History Educational Level: Completed High School Smoking Status: Never smoker Tobacco Type: cigarettes Alcohol Intake: never Substance Use Type: denies use Occupational Status: employed Housing: house Household Members: spouse - Psychiatric History Expresses thoughts of harming self/others: None Suicide Plan Description: No Plan *Family Hx:: Non-contributory
--- NOTE | 2018-05-26 13:59 | Procedure Note ---
- Procedure: Date: 05/26/18 Procedure Performed:: Esophagogastroduodenoscopy with biopsy Indications:: This is a 53-year-old gentleman currently being treated for pancreatitis of undetermined etiology. He has convalesced fairly well with biochemical resolution of his pancreatitis. Overall, his pain has improved. However, he has persistent epigastric pain and reflux with some symptom resolution noted upon administration of a "GI cocktail". He describes a history of reflux and he also describes a history of "bile reflux" noted on prior esophagogastroduodenoscopy. Performing Provider:: Aldo Salazar MD Referring Provider:: Dr. Burt Sedation:: Monitored anesthesia care Procedure:: After informed consent was obtained the patient was taken to the endoscopy suite. Monitored anesthesia care ensued after he was transferred to the left lateral decubitus position. The gastroscope was advanced. The gastroesophageal junction was at 40 cm. The stomach was entered. Moderate gastritis was noted throughout with the most significant area of inflammatory change along the mid gastric body and antrum. A biopsy of the antrum was obtained. A biopsy of the mid gastric body was also obtained. Retroflexion revealed a fairly small sliding hiatal hernia noted on maximum insufflation. Evaluation of the pylorus revealed a small amount of bile reflux. The pylorus was intubated. The duodenal mucosa appeared relatively normal. The gastroscope was carefully removed and the patient was transferred to recovery. Findings:: Gastroesophageal junction at 40 cm Small sliding hiatal hernia Moderate gastritis Small amount of bile reflux Specimens:: Antral biopsy Mid gastric body biopsy Recommendations:: Continue PPI Begin Questran Complications:: No immediate Estimated blood obtained (mL): 1
--- NOTE | 2018-05-27 07:30 | Progress Note ---
Subjective Patient reports: feels better, pain is less Exam Vital signs and Labs for Last 24 Hours: Temp Pulse Resp BP Pulse Ox 98.9 F 85 18 142/80 91 L 05/27/18 04:00 05/27/18 04:00 05/27/18 04:00 05/27/18 04:00 05/27/18 04:00 Laboratory Results - last 24 hr 05/26/18 17:09: POC Glucose 140 H 05/26/18 21:06: POC Glucose 166 H 05/27/18 06:34: POC Glucose 124 H I & O for Last 24 hours: Intake & Output 05/24/18 05/25/18 05/26/18 05/27/18 11:59 11:59 11:59 11:59 Intake Total 2296 / 2296 4384 / 4384 4566 / 4566 3423 / 3423 Output Total 1900 / 1900 50 / 50 500 / 500 Balance 396 / 396 4334 / 4334 4566 / 4566 2923 / 2923 Weight 234 lb 5 oz - Constitutional no acute distress - *Routine Respiratory Exam Absent: respiratory distress - *Routine Abdominal Exam Present: soft Progress Note: A&P (1) Pancreatitis Status: Acute Assessment and plan: CT yesterday shows some mild progression (with contrast as opposed to prior without). The patient has clinically improved. Continue slow advancement of diet Likely d/c home soon with outpatient follow-up Current Visit: Yes (2) Diabetes mellitus Status: Chronic Current Visit: No (3) Heartburn Status: Acute Assessment and plan: Conintue PPI Current Visit: Yes (4) Atypical chest pain Status: Acute Current Visit: Yes (5) Bile reflux gastritis Status: Acute Assessment and plan: Continue Questran Current Visit: Yes
--- NOTE | 2018-05-27 09:20 | Discharge Summary ---
General - General Admission date:: 05/23/18 Discharge date: 05/27/18 HPI HPI: This is a 53-year-old gentleman seen in consultation from the service of Dr. Burt for evaluation regarding pancreatitis and regarding possible gallbladder disease. He presented yesterday to the emergency department with progressive pain in the upper abdomen with some radiation to the back. He had(s) some associated nausea and vomiting. Upon presentation he was discovered to have an elevated lipase of 1223. His liver function studies were essentially normal. A CT scan revealed changes consistent with pancreatitis as he did have some mild peripancreatic head edema with minimal fat stranding. This CT scan was without contrast. Follow-up ultrasound revealed no gallstones, no wall thickening, and no erlin- cholecystic fluid. Mild pancreatic head fullness was noted on the ultrasound. The patient desires alcohol use. The patient states that he does have a few medications that have "possible increased risk of pancreatitis" on the warning label. Hospital Course Hospital Course: this wm with acute abd pain with elevated lipase and has pancreatitis - pt with slow improvement and was seen by surg with ct and egd - his is a 53-year-old gentleman currently being treated for pancreatitis of undetermined etiology. He has convalesced fairly well with biochemical resolution of his pancreatitis. Overall, his pain has improved. However, he has persistent epigastric pain and reflux with some symptom resolution noted upon administration of a "GI cocktail". He describes a history of reflux and he also describes a history of "bile reflux" noted on prior esophagogastroduodenoscopy. doing ok with dec pain and jaky diet better and will be followed by pcp and surg Gastroesophageal junction at 40 cm Small sliding hiatal hernia Moderate gastritis Small amount of bile refl Objective Vital signs: Temp Pulse Resp BP Pulse Ox 98.4 F 85 16 153/87 92 L 05/27/18 08:00 05/27/18 08:00 05/27/18 08:00 05/27/18 08:00 05/27/18 08:00 no acute distress, obese - *Routine HEENT Exam Head: Present: normocephalic Eye: Present: EOMI, PERRL ENT: Present: mucous membranes dry - *Routine Neck Exam Present: supple - *Routine Respiratory Exam Present: CTA bilaterally - *Routine Cardiovascular Exam Present: RRR. Absent: murmur - *Routine Abdominal Exam Present: soft - *Routine Extremities Exam Absent: calf tenderness - *Routine Skin Exam Present: intact - *Routine Neurological Exam Present: alert, oriented X3, CN II-XII intact - Routine Psychiatric Exam Present: normal affect Results Labs on day of discharge: Labs from last 24 hours 05/27/18 05/26/18 05/26/18 06:34 21:06 17:09 POC Glucose 124 H 166 H 140 H DS: Diagnosis - Discharge Diagnosis (1) Pancreatitis Status: Acute (2) Diabetes mellitus Status: Chronic (3) Heartburn Status: Acute (4) Atypical chest pain Status: Acute (5) Bile reflux gastritis Status: Acute Discharge Plan - Patient Discharge Instructions ACTIVITY: Continue current activity DIET: continue same diet Patient Instructions: Fat-Restricted Diet, DI for Low Back Pain - Follow up Plan Follow up with: Aldo Salazar MD [Staff Physician] - 1 week Disposition: Home, Self-Halfway Medications: Home Medications Medication Instructions Recorded Confirmed Type fluticasone 50 mcg/actuation nasal 1 spray INTRANASAL DAILY g 11/22/17 05/23/18 History spray,suspension Aspirin [Low Dose Aspirin EC] 81 mg PO DAILY 05/23/18 05/23/18 History Atorvastatin Calcium [Atorvastatin 10 mg PO HS 05/23/18 05/23/18 History 10mg Tab] Ergocalciferol (Vitamin D2) 50,000 unit PO WEEKLY 05/23/18 05/23/18 History [Vitamin D2] Metformin HCl [Glucophage] 1,000 mg PO BID 05/23/18 05/23/18 History buPROPion HCl [Wellbutrin 75mg 75 mg PO BID 05/23/18 05/23/18 History Tablet] glipiZIDE [Glipizide ER] 10 mg PO DAILY 05/23/18 05/23/18 History Prescriptions/Medication Reconciliation: New Cholestyramine/Aspartame [Prevalite 4gm Powder Pack] 4 gm PO AC #90 powd.pack Continue fluticasone 50 mcg/actuation nasal spray,suspension 1 spray INTRANASAL DAILY g pantoprazole 40 mg tablet,delayed release 40 mg PO DAILY #90 tab glipiZIDE [Glipizide ER] 10 mg PO DAILY Ergocalciferol (Vitamin D2) [Vitamin D2] 50,000 unit PO WEEKLY buPROPion HCl [Wellbutrin 75mg Tablet] 75 mg PO BID Atorvastatin Calcium [Atorvastatin 10mg Tab] 10 mg PO HS Aspirin [Low Dose Aspirin EC] 81 mg PO DAILY Metformin HCl [Glucophage] 1,000 mg PO BID
== END 2018-05-27 11:10 | disposition home or self-care (01) ==
LOC: ER 01:48 → 2ND 01:48 → OBSVTOIN 03:55 → 2ND 03:59 → UNDODISOB 11:30
PROVIDERS: ADMIT Emergency Medicine; ATTEND Emergency Medicine
CPT/HCPCS: 36415; 71020; 71046; 74160; 74176; 76705; 80048; 80053; 80061; 81001; 82150; 82550; 82553; 82962; 83690; 84484; 85025; 93005; 96365; 96375; 99284; G0378; J2405; Q9967

== ENCOUNTER → 2018-11-08 07:48 | Outpatient (CLI) | payer BC, SELFPAY ==
--- NOTE | 2018-11-08 07:50 | US_ITS ---
US abdomen limited History:Diarrhea after eating, right upper quadrant pain, nausea Ordering Physician:Florencia Pulido MD Patient Age: 53 years Comparison:None Findings: Pancreas:Unremarkable. No obvious mass or abnormal fluid collection. No ductal dilatation Liver:Unremarkable. No obvious mass or abnormal fluid collection. No ductal dilatation Right Kidney:Unremarkable. Normal size and echogenicity. No hydronephrosis Gallbladder:Increase echogenicity somewhat lobular in nature is present along the posterior aspect of the gallbladder consistent with thick sludge. This does not shadow and does not have typical appearance of stones. Small nonshadowing stones however could be obscured. Common bile duct is normal at 3 mm. No gallbladder wall thickening or pericholecystic fluid. IMPRESSION: Thick sludge along the posterior aspect of the gallbladder wall which could obscure small nonshadowing stones otherwise negative
== END ==
PROVIDERS: PCP Emergency Medicine; Visit Provider Emergency Medicine
DX: R19.8 Other specified symptoms and signs involving the digestive system and abdomen (principal); R10.11 Right upper quadrant pain
CPT/HCPCS: 76705

== ENCOUNTER → 2018-11-17 08:17 | Outpatient (CLI) | payer BC, SELFPAY ==
--- NOTE | 2018-11-17 08:21 | NM_ITS ---
NM hepatobiliary wo pharm HISTORY: Right upper quadrant pain with diarrhea and nausea, abnormal gallbladder ultrasound ITS.REASON: RUQ PAIN ORDERING PHYSICIAN: Florencia Pulido MD PATIENT AGE: 53 years COMPARISON: 11/08/2018 DOSE: 7.79 MCI TC Choletec INJ FINDINGS: Homogeneous activity is present within the hepatic parenchyma. The gallbladder was not visualized x 60 m. Small bowel was visualized x 10 m. Since the gallbladder was not visualized x 60 m, 4 mg of morphine was given IV. There was faint visualization of the gallbladder 60 minutes after morphine administration. 0.4 mg Narcan for morphine. There was only minimal activity within the liver at this time therefore, CCK was not administered and gallbladder ejection fraction was not performed. IMPRESSION: Delayed visualization of the gallbladder as described above suggesting chronic inflammation of the cystic duct
== END ==
PROVIDERS: PCP Emergency Medicine; Visit Provider Emergency Medicine
DX: R10.11 Right upper quadrant pain (principal)
CPT/HCPCS: 78226; A9537

== ENCOUNTER → 2018-12-12 10:03 | Outpatient (CLI) | payer BC, SELFPAY ==
[2018-12-12 11:01] LABS: Alanine Aminotransferase 42 U/L (12-78); Albumin Level 3.7 gm/dL (3.4-5.0); Albumin/Globulin Ratio 1.2 (1.1-1.8); Alkaline Phosphatase 117 U/L (46-116); Anion Gap 13.4 mEq/L (5-15); Aspartate Amino Transferase 16 U/L (15-37); Bilirubin,Total 0.6 mg/dL (0.2-1.0); Blood Urea Nitrogen 16 mg/dL (7-18); Calcium 9.5 mg/dL (8.5-10.1); Carbon Dioxide 28 mmol/L (21.0-32.0); Chloride 103 mmol/L (98-107); Creatinine,Serum 0.98 mg/dL (0.70-1.30); Estimated Glomerular Filt Rate 79 ml/min (>60); GFR (African American) 96 ML/MIN (>60); Glucose 239 mg/dL (74-106); Potassium 4.4 mmoL/L (3.5-5.1); Sodium 140 mmol/L (136-145); Total Protein,Serum 6.7 gm/dL (6.4-8.2)
[2018-12-12 11:27] LABS: Basophils % 0.6 % (0.1-2.0); Eosinophils # 0.4 K/mm3 (0.0-0.4); Eosinophils % 4.7 % (0.1-12.0); Hematocrit 49.2 % (42.0-52.0); Hemoglobin 16.2 g/dL (14.1-18.0); Lymphocytes # 2.1 K/mm3 (0.7-4.5); Lymphocytes % 27.9 % (10-50); Mean Corpuscular Hemoglobin 27.8 pg (27.0-31.2); Mean Corpuscular Volume 84.4 fl (80-94); Monocytes # 0.5 K/mm3 (0.1-1.0); Monocytes % 6.3 % (1.7-9.3); Neutrophils # 4.5 K/mm3 (1.8-7.8); Neutrophils % 60.5 % (37.0-80.0); Platelet Count 350 K/mm3 (142-424); Red Blood Count 5.83 M/mm3 (4.60-6.20); Red Cell Distribution Width 13.6 % (11.5-17.5); White Blood Count 7.4 K/mm3 (4.8-10.8)
== END ==
PROVIDERS: Visit Provider Surgery
DX: K82.9 Disease of gallbladder, unspecified (principal)
CPT/HCPCS: 36415; 80053; 85025

== ENCOUNTER → 2019-01-05 13:50 | Outpatient (CLI) | payer BC, SELFPAY ==
[2019-01-05 13:58] LABS: Adenovirus F 40/41, stool Not Detected (NotDetected); Astrovirus Not Detected (NotDetected); Campylobacter Not Detected (NotDetected); Clostridium Difficile A/B, PCR Not Detected (NotDetected); Cryptosporidium Not Detected (NotDetected); Cyclospora Cayetanesis Not Detected (NotDetected); Entamoeba histolytica Not Detected (NotDetected); Enteroaggregative E coli Not Detected (NotDetected); Enteropathogenic E coli Not Detected (NotDetected); Enterotoxigenic E coli Not Detected (NotDetected); Giardia lamblia Not Detected (NotDetected); Norovirus Not Detected (NotDetected); Plesimonas Shigalloides, PCR Not Detected (NotDetected); Rotavirus A Not Detected (NotDetected); Salmonella, PCR Not Detected (NotDetected); Sapovirus Not Detected (NotDetected); Shiga-like toxin E coli Not Detected (NotDetected); Shigella Enterovasive E coli Not Detected (NotDetected); Vibrio Cholerae Not Detected (NotDetected); Vibrio, PCR Not Detected (NotDetected); Yersinia Entercolitica, PCR Not Detected (NotDetected)
== END ==
PROVIDERS: Visit Provider Surgery
DX: R19.7 Diarrhea, unspecified (principal)
CPT/HCPCS: 87506

== ENCOUNTER → 2021-01-24 14:29 | Outpatient (CLI) | payer BC, SELFPAY | PROVIDERS: PCP Family Medicine; Visit Provider Family Medicine | DX: Z20.822 Contact with and (suspected) exposure to COVID-19 (principal) | CPT/HCPCS: U0003 ==

== ENCOUNTER → 2021-11-01 10:23 | Outpatient (CLI) | payer BC, SELFPAY | PROVIDERS: Visit Provider Nurse Practitioner | DX: U07.1 COVID-19 (principal) | CPT/HCPCS: C9803; U0003; U0005 ==

== ENCOUNTER 2021-11-27 20:30 | Emergency (ER) | payer BC, SELFPAY ==
[2021-11-27 20:35] VITALS: BP 154/85; PULSE 94; RESP 18; TEMP 36.6; O2SAT 97; BMI 34.5
--- NOTE | 2021-11-27 20:46 | HMH.EDUTC ---
[facility] Disposition Clinical Impression: Sinusitis Qualifiers: Sinusitis location: unspecified location Chronicity: unspecified Qualified Code(s): J32.9 - Chronic sinusitis, unspecified Disposition: Home, Self-Care Condition on Discharge: Good Instructions: Sinusitis, DI for Sinusitis Additional Instructions: The Solu Medrol injection may raise your Finger stick blood sugar for the next couple of days then should return to normal Take medication as prescribed Continue to use flonase Follow up with your Family Doctor if no improvement or any worsening of symptoms Return if needed Straight to ER if any life threatening symptoms Prescriptions: Amoxicillin/Potassium Clav [Amox-Clav 875-125 mg Tablet] 1 tab PO BID #14 tab Transmission Status: Received by [facility] Referrals: Kevin Jimenez MD [Primary Care Provider] - As needed Time of Disposition: 21:04 Medical Decision Making - Romero Inquiry Pt receiving controlled substance: No Romero was queried for this patient: No Vital Signs: 11/27/21 20:35 11/27/21 21:05 Temperature 97.8 F 97.8 F Temperature Source Oral Pulse Rate 94 H Pulse Rate [Right Brachial] 94 H Respiratory Rate 18 18 Blood Pressure 154/85 H Blood Pressure [Right Arm] 154/85 H Blood Pressure Mean [Right Arm] 108 Blood Pressure Source [Right Arm] Automatic Cuff Blood Pressure Position [Right Arm] Sitting 02 Sat by Pulse Oximetry 97 Oxygen Delivery Method Room Air Orders (Tests/Meds): ED MEDICATIONS Discontinued Medications Generic Name Dose Route Start Last Admin Trade Name Freq PRN Reason Stop Dose Admin Amoxicillin/Clavulanate Potassium 1 each 11/27/21 20:59 11/27/21 21:02 Amoxicillin/Pot Clavulan 500mg Tablet PO 11/27/21 21:00 1 each ONCE ONE Administration Methylprednisolone Sodium Succinate 125 mg 11/27/21 20:58 11/27/21 21:04 Methylprednisolone Sod Succ 125mg Vial IM 11/27/21 20:59 125 mg ONCE ONE Administration Medical Decision Narrative: Medication discussed with pharmacy [facility] HPI - General Stated complaint: drainage Time Seen by Provider: 11/27/21 20:46 Mode of Arrival: Ambulatory Source of Information: Patient Limitations: No Limitations Description of Symptoms (Recalled from Triage Doc. by RN): PATIENT C/O SINUS CONGESTION HEENT Symptoms (Recalled from RN notes): Yes Resp Symptoms (Recalled from RN notes): No Skin Symptoms (Recalled from RN notes): No MS Symptoms (Recalled from RN notes): No Functional Status (Recalled from RN notes): WNL - History of Present Illness Provider Complaint: Patient states that he has been having sinus pain and pressure for a couple weeks States that he had COVID about 3 weeks ago and has continued to have sinus pain and pressure since States that he has tried several OTC medications and it hasnt helped much States that he is having pressure in both ears and feeling of fullness and pressure behind his eyes so today when he was still having it he came in to get checked - Related Data Home Medications Medication Instructions Recorded Confirmed Aspirin [Low Dose Aspirin EC] 81 mg PO DAILY 05/23/18 01/08/19 Ergocalciferol (Vitamin D2) 50,000 unit PO WEEKLY 05/23/18 01/08/19 [Vitamin D2] buPROPion HCL [Wellbutrin SR 75mg 75 mg PO DAILY 10/23/18 01/08/19 Tablet] Cholestyramine/Aspartame 4 gm PO AC 12/13/18 01/08/19 [Prevalite 4gm Powder Pack] loperamide 2 mg tablet 2 mg PO Q4H 12/22/18 01/08/19 ondansetron HCl 4 mg tablet 4 mg PO QID PRN 12/22/18 01/08/19 Previous Rx's Medication Instructions Recorded pantoprazole 40 mg tablet,delayed 40 mg PO DAILY #90 tab 05/23/18 release glipizide 10 mg tablet, extended 10 mg PO DAILY #90 tab 06/22/18 release 24 hr metformin 1,000 mg tablet 1,000 mg PO BID #90 tab 07/04/18 atorvastatin 10 mg tablet 10 mg PO HS #90 tab 10/23/18 Amoxicillin/Potassium Clav 1 tab PO BID #14 tab 11/27/21 [Amox-Clav 875-125 mg Tablet]
[2021-11-27 21:05] VITALS: BP 154/85; PULSE 94; RESP 18; TEMP 36.6; O2SAT 97
== END 2021-11-27 21:12 | disposition home or self-care (01) ==
PROVIDERS: Emergency Provider Nurse Practitioner; PCP Family Medicine
DX: J32.8 Other chronic sinusitis (principal); K21.9 Gastro-esophageal reflux disease without esophagitis; E11.9 Type 2 diabetes mellitus without complications; Z86.16 Personal history of COVID-19; Z79.82 Long term (current) use of aspirin; Z79.84 Long term (current) use of oral hypoglycemic drugs; Z79.899 Other long term (current) drug therapy; Z88.8 Allergy status to other drugs, medicaments and biological substances; Z80.9 Family history of malignant neoplasm, unspecified
CPT/HCPCS: 96372; 99213; G0463

== ENCOUNTER 2022-02-20 01:26 | Emergency (ER) | payer BC, SELFPAY ==
[2022-02-20 01:27] VITALS: BP 180/100; PULSE 109; RESP 16; TEMP 38.3; O2SAT 96; BMI 31.7
[2022-02-20 01:31] VITALS: BMI 31.7
--- NOTE | 2022-02-20 01:31 | XR_ITS ---
PROCEDURE INFORMATION: Exam: XR Chest Exam date and time: 02/20/2022 1:36 AM Age: 56 years old Clinical indication: Cough and other: Congestion TECHNIQUE: Imaging protocol: XR of the chest. Views: 2 views. COMPARISON: CR CXR2V XR chest 2V 10/23/2018 8:38 PM FINDINGS: Lungs: Central opacities with peribronchial cuffing, seen to advantage on the lateral chest radiograph suggest viral process versus reactive airways without convincing consolidation. Pleural spaces: Unremarkable. No pleural effusion. No pneumothorax. Heart/Mediastinum: Unremarkable. No cardiomegaly. Bones/joints: Unremarkable. IMPRESSION: Central opacities with peribronchial cuffing, seen to advantage on the lateral chest radiograph suggest viral process versus reactive airways without convincing consolidation.
[2022-02-20 01:37] LABS: Coronavirus 19, PCR Not Detected (NotDetected); Influenza A, PCR Not Detected (NotDetected); Influenza B, PCR Not Detected (NotDetected)
--- NOTE | 2022-02-20 01:47 | HMH.EDGENADL ---
ED Disposition Clinical Impression: Viral pneumonia Disposition: Home, Self-Care Condition on Discharge: Good Additional Instructions: Take Z-pack as directed on package, tylenol/motrin for temps > 100.4, tessalon pearles for your cough. Follow up with your PCP within the next week, return to ED with any new, worsening, or concerning symptoms. Prescriptions: Azithromycin 250 mg PO DAILY 4 Days #4 tab Transmission Status: [facility] Benzonatate [Benzonatate 150mg Cap] 150 mg PO TID PRN 5 Days #15 cap PRN Reason: Cough Transmission Status: [facility] Referrals: Kevin Jimenez MD [Primary Care Provider] - - Critical Care Critical Care Time: No Attestation: On 02/20/22, the high probability of a clinically significant, sudden or life threatening deterioration of the following system(s) required my full and direct attention, intervention and personal management. The time I documented below is in addition to time spent performing reported procedures but includes the following listed in this critical care notation. Medical Decision Making - Medical Records Medical records reviewed: Yes: I reviewed the patient's medical records. - Romero Inquiry Pt receiving controlled substance: No Vital Signs: 02/20/22 01:27 02/20/22 02:00 02/20/22 02:30 Temperature 100.9 F H Temperature Source Oral Pulse Rate 110 H 106 H Pulse Rate [Right] 109 H Respiratory Rate 16 Blood Pressure 160/93 H 161/102 H Blood Pressure [Right Arm] 180/100 H Blood Pressure Mean [Right Arm] 126 02 Sat by Pulse Oximetry 96 93 L 94 L 02/20/22 03:00 02/20/22 03:30 Temperature Temperature Source Pulse Rate 103 H 99 H Pulse Rate [Right] Respiratory Rate Blood Pressure 158/95 H 158/98 H Blood Pressure [Right Arm] Blood Pressure Mean [Right Arm] 02 Sat by Pulse Oximetry 96 96 - Lab Data Lab Results 02/20/22 01:32: SARS-CoV-2 (PCR) Not detected, Influenza A Untype (PCR) Not detected, Influenza Type B (PCR) Not detected 02/20/22 01:55: WBC 9.2, RBC 5.95, Hgb 16.9, Hct 50.5, MCV 84.8, MCH 28.4, MCHC 33.5, RDW 14.4, Plt Count 245, MPV 7.7, Neut % (Auto) 72.5, Lymph % (Auto) 14.7, [place] % (Auto) 8.3, Eos % (Auto) 2.5, Baso % (Auto) 2.1 H, Neut # (Auto) 6.7, Lymph # (Auto) 1.4, [place] # (Auto) 0.8, Eos # (Auto) 0.2, Baso # (Auto) 0.2 02/20/22 01:55: D-Dimer 0.71 H 02/20/22 01:55: Sodium 136, Potassium 4.0, Chloride 104, Carbon Dioxide 24, Anion Gap 12.0, BUN 18, Creatinine 0.80, Estimated Creat Clear 143, Estimated GFR 99, Est GFR ( Amer) 120, Glucose 289 H, Calcium 9.4, Total Bilirubin 0.5, AST 25, ALT 25, Alkaline Phosphatase 117, Troponin I < 0.01, Total Protein 6.9, Albumin 4.2, Globulin 2.7, Albumin/Globulin Ratio 1.6 02/20/22 01:55: NT-Pro-B Natriuret Pep 74.3 Result diagrams: 02/20/22 01:55 02/20/22 01:55 Orders (Tests/Meds): ED MEDICATIONS Generic Name Dose Route Start Last Admin Trade Name Freq PRN Reason Stop Dose Admin Sodium Chloride 500 mls @ 999 mls/hr 02/20/22 04:00 02/20/22 03:54 Sod Chlor 0.9% 1000ml Bag IV 02/20/22 04:30 999 mls/hr .Q31M CIARRA Administration Discontinued Medications Generic Name Dose Route Start Last Admin Trade Name Freq PRN Reason Stop Dose Admin Acetaminophen 1,000 mg 02/20/22 02:00 02/20/22 02:07 Acetaminophen 500mg Tab PO 02/20/22 02:01 1,000 mg ONCE ONE Administration Azithromycin 500 mg 02/20/22 03:52 02/20/22 03:54 Azithromycin 250mg Tablet PO 02/20/22 03:53 500 mg ONCE ONE Administration Iopamidol 100 ml 02/20/22 03:12 02/20/22 03:14 Iopamidol-370 (76%);100ml Bottle IV 02/20/22 03:13 100 ml ONCE ONE Administration Sodium Chloride 40 ml 02/20/22 03:12 02/20/22 03:14 0.9 % Sodium Chloride 50 Ml Vial IV 02/20/22 03:13 40 ml ONCE ONE Administration Sodium Chloride 10 ml 02/20/22 03:12 02/20/22 03:14 Sodium Chloride 0.9% 10ml Syr (Rad Only) IV
--- NOTE | 2022-02-20 01:51 | ECG_ITS ---
APPROVED REPORT Exam: Resting ECG HR:107 bpm ECG Measurements Heart Rate 107 AXES AL 132 P 56 QRSd 83 QRS 62 QT 322 T 54 QTc 385 Conclusion SINUS TACHYCARDIA ABNORMAL RHYTHM ECG UNCONFIRMED REPORT Electronically signed by : Dewayne Sanchez MD 02/20/2022 09:48:19
[2022-02-20 02:00] VITALS: BP 160/93; PULSE 110; O2SAT 93
[2022-02-20 02:09] LABS: Basophils # 0.2 K/mm3 (0-0.2); Basophils % 2.1 % (0.1-2.0); Eosinophils # 0.2 K/mm3 (0.0-0.4); Eosinophils % 2.5 % (0.1-12.0); Hematocrit 50.5 % (42.0-52.0); Hemoglobin 16.9 g/dL (14.1-18.0); Lymphocytes # 1.4 K/mm3 (0.7-4.5); Lymphocytes % 14.7 % (10-50); Mean Corpuscular HGB Conc 33.5 g/dL (31.8-35.4); Mean Corpuscular Hemoglobin 28.4 pg (27.0-31.2); Mean Corpuscular Volume 84.8 fl (80-94); Mean Platelet Volume 7.7 fl (7.4-10.4); Monocytes # 0.8 K/mm3 (0.1-1.0); Monocytes % 8.3 % (1.7-9.3); Neutrophils # 6.7 K/mm3 (1.8-7.8); Neutrophils % 72.5 % (37.0-80.0); Platelet Count 245 K/mm3 (142-424); Red Blood Count 5.95 M/mm3 (4.60-6.20); Red Cell Distribution Width 14.4 % (11.5-17.5); White Blood Count 9.2 K/mm3 (4.8-10.8)
[2022-02-20 02:21] LABS: D-Dimer 0.71 ug/mL (0.0-0.5)
[2022-02-20 02:27] LABS: Chloride 104 mmol/L (98-107)
[2022-02-20 02:28] LABS: Sodium 136 mmol/L (136-145)
[2022-02-20 02:30] VITALS: BP 161/102; PULSE 106; O2SAT 94
[2022-02-20 02:30] LABS: Alanine Aminotransferase 25 U/L (12-78); Alkaline Phosphatase 117 U/L (38-126); Aspartate Amino Transferase 25 U/L (17-59); Bilirubin,Total 0.5 mg/dl (0.2-1.3); Blood Urea Nitrogen 18 mg/dl (9-20); Creatinine Clearance Estimated 143 mL/min (50-200); Estimated Glomerular Filt Rate 99 ml/min (>60); GFR (African American) 120 ML/MIN (>60)
--- NOTE | 2022-02-20 02:30 | CT_ITS ---
PROCEDURE INFORMATION: Exam: CTA Chest With Contrast Exam date and time: 02/20/2022 3:02 AM Age: 56 years old Clinical indication: Pain; Left-sided; Additional info: Left sided pleuritic chest pain TECHNIQUE: Imaging protocol: Computed tomographic angiography of the chest with contrast. 3D rendering (Not supervised by radiologist): MIP and/or 3D reconstructed images were created by the technologist. Radiation optimization: All CT scans at this facility use at least one of these dose optimization techniques: automated exposure control; mA and/or kV adjustment per patient size (includes targeted exams where dose is matched to clinical indication); or iterative reconstruction. Contrast material: ISOVUE 370; Contrast volume: 70 ml; Contrast route: INTRAVENOUS (IV); COMPARISON: CR XR CHEST 2V 02/20/2022 1:36 AM FINDINGS: Pulmonary arteries: Normal. No pulmonary emboli. Aorta: Unremarkable. No aortic aneurysm. No aortic dissection. Lungs: Right upper lobe calcified granuloma requires no follow-up. Pleural spaces: Unremarkable. No pneumothorax. No pleural effusion. Heart: Low volume pericardial effusions in the noted. Lymph nodes: Multiple mediastinal and right hilar calcified nodes likely related to prior granulomatous process. Bones/joints: Unremarkable. No acute fracture. Soft tissues: Unremarkable. IMPRESSION: No CT angiography evidence of pulmonary embolism.
[2022-02-20 02:31] LABS: Albumin Level 4.2 g/dl (3.5-5.0); Albumin/Globulin Ratio 1.6 (1.1-1.8); Calcium 9.4 mg/dl (8.4-10.2); Carbon Dioxide 24 mmol/L (22.0-30.0); Globulin 2.7 g/dL (1.3-3.2); Glucose 289 mg/dl (74-100); Total Protein,Serum 6.9 g/dl (6.3-8.2)
[2022-02-20 02:40] LABS: NT Pro Brain Natriuretic Pep. 74.3 pg/mL (0-125)
[2022-02-20 02:46] LABS: Troponin I < 0.01 ng/ml (0.00-0.034)
[2022-02-20 03:00] VITALS: BP 158/95; PULSE 103; O2SAT 96
[2022-02-20 03:30] VITALS: BP 158/98; PULSE 99; O2SAT 96
[2022-02-20 04:39] VITALS: BP 158/98; PULSE 99; RESP 18; TEMP 36.8; O2SAT 99
== END 2022-02-20 04:41 | disposition home or self-care (01) ==
PROVIDERS: Emergency Provider Emergency Medicine; PCP Family Medicine
DX: J18.9 Pneumonia, unspecified organism (principal); E11.9 Type 2 diabetes mellitus without complications; K21.9 Gastro-esophageal reflux disease without esophagitis
CPT/HCPCS: 71046; 71275; 80053; 83880; 84484; 85025; 85378; 93005; 96374; 99284; C9803; Q9967; U0003; U0005

== ENCOUNTER 2022-05-28 21:48 | Inpatient (IN) | payer BC, SELFPAY ==
[2022-05-28 21:49] VITALS: BP 158/96; PULSE 101; RESP 16; TEMP 36.8; O2SAT 98; BMI 31.5
--- NOTE | 2022-05-28 22:22 | CT_ITS ---
PROCEDURE INFORMATION: Exam: CT Abdomen And Pelvis With Contrast Exam date and time: 05/28/2022 10:50 PM Age: 57 years old Clinical indication: Abdominal pain; Generalized; Prior surgery; Surgery date: 6+ months; Surgery type: Gb; Patient HX: PT has HX of pancreatitis TECHNIQUE: Imaging protocol: Computed tomography of the abdomen and pelvis with contrast. Radiation optimization: All CT scans at this facility use at least one of these dose optimization techniques: automated exposure control; mA and/or kV adjustment per patient size (includes targeted exams where dose is matched to clinical indication); or iterative reconstruction. Contrast material: ISOVUE; Contrast volume: 75 ml; Contrast route: IV; COMPARISON: ABDPELW CT abdomen pelvis w con 12/19/2018 8:40 PM FINDINGS: Lungs: The lung bases are clear. No pleural effusion. Liver: Unremarkable. No mass. Gallbladder and bile ducts: Status post cholecystectomy. No ductal dilation. Pancreas: There is mild opacification of the peripancreatic fat mild fluid in the left anterior pararenal space. No discrete pancreatic mass or organized fluid collection to suggest pseudocyst. No abnormal enhancement. Spleen: Unremarkable. Adrenal glands: Unremarkable. Kidneys and ureters: No renal mass or hydronephrosis. Stomach and bowel: Unremarkable. No obstruction. No mucosal thickening. Appendix: The appendix is identified and is normal. Intraperitoneal space: No free air. No significant fluid collection. Retroperitoneal space: No bulky lymphadenopathy. Vasculature: Unremarkable. No abdominal aortic aneurysm. Lymph nodes: Unremarkable. No enlarged lymph nodes. Urinary bladder: Unremarkable as visualized. Reproductive: Unremarkable as visualized. Bones/joints: Unremarkable. No acute osseous abnormality. Soft tissues: Small bilateral inguinal hernias contain fat only. IMPRESSION: 1. Acute pancreatitis, mild. No evidence of mass, abnormal enhancement or pseudocyst. 2. Status post cholecystectomy.
[2022-05-28 22:39] LABS: Appearance,Urine CLEAR (Clear); Bilirubin,Urine Negative (Negative); Blood, Urine Negative (Negative); Color,Urine YELLOW (Yellow); Glucose,Urine (UA) 3+ (Negative); Ketones,Urine 2+ (Negative); Leukocyte Esterase,Urine Negative (Negative); Microscopic, Urine URINE MICROSCOPIC (MICROSCOPIC); Nitrate,Urine Negative (Negative); PH,Urine 5.5 (5.0-8.5); Protein,Urine Negative (Negative); Specific Gravity, Urine 1.015 (1.005-1.030); Urobilinogen,Urine 0.2 EU/dl (0.2)
--- NOTE | 2022-05-28 22:44 | HMH.EDABDPAI ---
Discharge Plan Disposition Patient Disposition: Admitted as Observation Chief Complaint: Abdominal Pain Prescriptions Prescriptions: No Action ondansetron HCl [Zofran] 4 mg tablet 4 mg PO QID PRN famotidine 40 mg tablet 40 mg PO HS Label Comments: TAKE 1 TABLET BY MOUTH EVERY DAY AT BEDTIME lovastatin 20 mg tablet 20 mg PO DAILY Label Comments: TAKE 1 TABLET BY MOUTH EVERY DAY Jardiance 25 mg tablet 25 mg PO DAILY Label Comments: TAKE 1 TABLET BY MOUTH EVERY DAY IN THE MORNING montelukast 10 mg tablet 10 mg PO DAILY Label Comments: TAKE 1 TABLET BY MOUTH EVERY DAY pantoprazole 40 mg tablet,delayed release (DR/EC) 40 mg PO DAILY Qty: 90 0RF glipizide 10 mg tablet extended release 24hr 10 mg PO DAILY Qty: 90 0RF metformin 1,000 mg tablet 1,000 mg PO BID Qty: 90 0RF atorvastatin 10 mg tablet 10 mg PO HS Qty: 90 0RF aspirin 81 MG tablet,delayed release (DR/EC) 81 mg PO DAILY ergocalciferol (vitamin D2) 50,000 UNIT capsule 50,000 unit PO WEEKLY bupropion HCl 75 MG tablet 75 mg PO DAILY cholestyramine-aspartame 4 GM powder in packet 4 gm PO AC Discharge ED Provider: Prasanth Burt Abdominal Pain HPI General Chief Complaint: Abdominal Pain Stated Complaint: Middle back pain radiating to front of stomach Time Seen by Provider: 05/28/22 22:44 Mode of Arrival: Ambulatory Source of Information: Patient and Medical Record Limitations: No Limitations Description of Symptoms (Recalled from ER Triage Doc. by RN): Pt reports 2 days of constant squeezing pain from his mid back that radiates to his LUQ. Pt denies N/V/D. Pt has hx of pancreatits and says it feels like previous bouts. History of Present Illness HPI narrative: acute progressive abd pain with hx of pancreatitis MD complaint: abdominal pain Onset (ago): day(s) Consistency: constant Location: LUQ Severity: moderate Radiation: LUQ Migration to: L flank Context: history of similar episodes Associated symptoms: denies other symptoms and nausea Related Data Home Medications Medication Instructions Recorded Confirmed aspirin 81 mg tablet,delayed 81 mg PO DAILY heart health 05/23/18 05/03/22 release ergocalciferol (vitamin D2) 1,250 50,000 unit PO WEEKLY Supplement 05/23/18 05/03/22 mcg (50,000 unit) capsule bupropion HCl 75 mg tablet 75 mg PO DAILY mood 10/23/18 05/03/22 cholestyramine-aspartame 4 gram 4 gm PO AC Cholesterol 12/13/18 05/03/22 oral powder for susp in a packet ondansetron HCl 4 mg tablet 4 mg PO QID PRN 12/22/18 05/03/22 (Zofran) empagliflozin 25 mg tablet 25 mg PO DAILY 05/03/22 05/03/22 (Jardiance) famotidine 40 mg tablet 40 mg PO HS 05/03/22 05/03/22 lovastatin 20 mg tablet 20 mg PO DAILY 05/03/22 05/03/22 montelukast 10 mg tablet 10 mg PO DAILY 05/03/22 05/03/22 Previous Rx's Medication Instructions Recorded pantoprazole 40 mg tablet,delayed 40 mg PO DAILY GERD #90 tabs 05/23/18 release glipizide 10 mg tablet, extended 10 mg PO DAILY Diabetes #90 tabs 06/22/18 release 24 hr metformin 1,000 mg tablet 1,000 mg PO BID Diabetes #90 tabs 07/04/18 atorvastatin 10 mg tablet 10 mg PO HS Cholesterol #90 tabs 10/23/18 Allergies Allergy/AdvReac Type Severity Reaction Status Date / Time metoclopramide [From Reglan] Allergy Severe Chest Pain Verified 05/03/22 11:48 Poultry Allergy Severe Swelling Verified 05/03/22 11:48 of Lip/Tongue/Throat chicken derived Allergy Anaphylaxis Verified 05/03/22 11:48 PFSH PFS Medical History (Updated 02/20/22 @ 03:59 by Chris Porras MD) Abdominal pain Diabetes mellitus Helicobacter pylori (H. pylori) infection Hyperlipidemia Social History Smoking Status: Never smoker alcohol intake: never substance use type: denies use current occupational status: other Travel in the last 8 weeks: None household members: spouse housing: house caffeine: Yes
[2022-05-28 22:46] LABS: Alanine Aminotransferase 24 U/L (12-78); Albumin Level 4.5 g/dl (3.5-5.0); Albumin/Globulin Ratio 1.3 (1.1-1.8); Alkaline Phosphatase 132 U/L (38-126); Amylase 519 U/L (30-110); Anion Gap 12.9 mEq/L (5-15); Aspartate Amino Transferase 25 U/L (17-59); Basophils # 0.1 K/mm3 (0-0.2); Basophils % 0.8 % (0.1-2.0); Bilirubin,Total 0.7 mg/dl (0.2-1.3); Blood Urea Nitrogen 17 mg/dl (9-20); Calcium 9.7 mg/dl (8.4-10.2); Carbon Dioxide 27 mmol/L (22.0-30.0); Chloride 103 mmol/L (98-107); Creatinine Clearance Estimated 112 mL/min (50-200); Eosinophils # 0.2 K/mm3 (0.0-0.4); Eosinophils % 2.2 % (0.1-12.0); Estimated Glomerular Filt Rate 76 ml/min (>60); GFR (African American) 93 ML/MIN (>60); Globulin 3.4 g/dL (1.3-3.2); Glucose 207 mg/dl (74-100); Hematocrit 51.8 % (42.0-52.0); Hemoglobin 16.7 g/dL (14.1-18.0); Lymphocytes # 1.6 K/mm3 (0.7-4.5); Lymphocytes % 15.2 % (10-50); Mean Corpuscular HGB Conc 32.2 g/dL (31.8-35.4); Mean Corpuscular Hemoglobin 27.4 pg (27.0-31.2); Mean Corpuscular Volume 85.1 fl (80-94); Mean Platelet Volume 7.7 fl (7.4-10.4); Monocytes # 0.8 K/mm3 (0.1-1.0); Monocytes % 7.9 % (1.7-9.3); Neutrophils # 7.7 K/mm3 (1.8-7.8); Neutrophils % 73.9 % (37.0-80.0); Platelet Count 299 K/mm3 (142-424); Potassium 3.9 mmoL/L (3.5-5.1); Red Blood Count 6.09 M/mm3 (4.60-6.20); Red Cell Distribution Width 14.3 % (11.5-17.5); Sodium 139 mmol/L (136-145); Total Protein,Serum 7.9 g/dl (6.3-8.2); White Blood Count 10.4 K/mm3 (4.8-10.8)
[2022-05-28 22:51] LABS: C-Reactive Protein 120.1 mg/L (0-4)
[2022-05-28 22:55] LABS: Squamous Epithelial Cell,Urine Occasional #/hpf (0-5); WBC,Urine Occasional #/hpf (0-3)
[2022-05-28 22:57] LABS: Lipase 3914 U/L (23-300)
[2022-05-28 23:00] VITALS: BP 165/98; PULSE 93; RESP 14; O2SAT 98
[2022-05-28 23:04] LABS: Procalcitonin 0.097 ng/mL (0.0-2.0)
--- NOTE | 2022-05-28 23:24 | PC.NURSE ---
DR. GRAHAM ON PHONE WITH DR. AKERS.
--- NOTE | 2022-05-28 23:25 | PC.NURSE ---
PATIENT ADMITTED TO [facility] TO SERVICE OF DR. AKERS TO [facility] WITH ACUTE PANCREATITIS.
[2022-05-28 23:27] LABS: Coronavirus 19, PCR Not Detected (NotDetected); Influenza A, PCR Not Detected (NotDetected); Influenza B, PCR Not Detected (NotDetected)
[2022-05-28 23:28] LABS: Erythrocyte Sedimentation Rate 9 mm/hr (0-20)
[2022-05-29] VITALS (9 sets, daily range): BP systolic 141–172; BP diastolic 75–99; PULSE 94–116; RESP 16–20; TEMP 36.6–37.6; O2SAT 93–99; BMI 33.3
--- NOTE | 2022-05-29 00:33 | PC.NURSE ---
PT ARRIVED TO FLOOR VIA W/C @0037
--- NOTE | 2022-05-29 04:27 | PC.NURSE ---
Patient admitted to floor. Patient a&o x4. Patient complains of pain from back to lt side medicated per mar. Fluids administered per nov. Abd is soft yet tender. Patient is NPO.
[2022-05-29 06:27] LABS: POC Glucose,Bedside 149 (70-110)
--- NOTE | 2022-05-29 09:32 | EXP.HP ---
History of Present Illness *Admission Date: 05/28/22 *Reason for visit:: abdominal pain *History of present illness: Mr. Wolf is a 57-year-old white male with a history of gallstone pancreatitis, diabetes, hyperlipidemia, and Price's esophagus who presented to the emergency room last evening with a 2-day history of progressively worsening left upper quadrant abdominal pain radiating into his back. He had some mild nausea but no vomiting. No fever. No change in his bowel habits. His symptoms were reminiscent of his past bouts with pancreatitis but he has had no problems since his cholecystectomy in 2019. He denies alcohol use. His last lipid profile was normal 3 months ago. Is evaluated in the emergency room and found to have elevated lipase and amylase. CT scan was consistent with mild pancreatitis. No necrosis or cystic formation. He has been admitted at this time for further treatment with bowel rest, IV fluids, and IV pain medication. [facility] Medical History Abdominal pain Diabetes mellitus Helicobacter pylori (H. pylori) infection Hyperlipidemia Type 2 diabetes mellitus Surgical History History of tonsillectomy Hx laparoscopic cholecystectomy Social History Smoking Status: Never smoker alcohol intake: never substance use type: denies use current occupational status: other Travel in the last 8 weeks: None household members: spouse housing: house caffeine: Yes Review of Systems Constitutional Constitutional: Reports as per HPI, Denies fever(s), Denies headache(s) and Denies weight loss Eyes Eyes: Denies change in vision ENT Ears, Nose, Mouth, and Throat: Denies dizziness, Denies dry mouth, Denies headache(s) and Denies hearing loss *Cardiovascular Cardiovascular: Denies chest pain, Denies dyspnea and Denies leg edema *Respiratory Respiratory: Denies chest congestion, Denies cough and Denies dyspnea *Gastrointestinal Gastrointestinal: Reports as per HPI *Genitourinary Genitourinary: Denies difficulty urinating and Denies urinary incontinence *Musculoskeletal Musculoskeletal: Denies joint swelling and Denies muscle weakness *Neurologic Neurologic: Denies dizziness and Denies headache(s) Meds Home Medications and Allergies Home Medications Medication Instructions Recorded Confirmed Type aspirin 81 mg tablet,delayed 81 mg PO DAILY heart health 05/23/18 05/29/22 History release pantoprazole 40 mg tablet,delayed 40 mg PO DAILY GERD #90 tabs 05/23/18 05/29/22 Rx release glipizide 10 mg tablet, extended 10 mg PO DAILY Diabetes #90 tabs 06/22/18 05/29/22 Rx release 24 hr metformin 1,000 mg tablet 1,000 mg PO BID Diabetes #90 tabs 07/04/18 05/29/22 Rx bupropion HCl 75 mg tablet 75 mg PO BID mood 10/23/18 05/29/22 History ondansetron HCl 4 mg tablet 4 mg PO TIDP PRN Nausea 12/22/18 05/29/22 History (Zofran) empagliflozin 25 mg tablet 25 mg PO DAILYDM Diabetes 05/03/22 05/29/22 History (Jardiance) famotidine 40 mg tablet 40 mg PO HS Heartburn 05/03/22 05/29/22 History lovastatin 20 mg tablet 20 mg PO DAILY Cholesterol 05/03/22 05/29/22 History montelukast 10 mg tablet 10 mg PO HS Allergy symptoms 05/03/22 05/29/22 History fluticasone propionate 50 1 spray intranasal DAILY Allergy 05/29/22 05/29/22 History mcg/actuation nasal symptoms spray,suspension New Prescriptions to Start Prescriptions: Allergies Allergy/AdvReac Type Severity Reaction Status Date / Time metoclopramide [From Reglan] Allergy Severe Chest Pain Verified 05/03/22 11:48 Poultry Allergy Severe Swelling Verified 05/03/22 11:48 of Lip/Tongue/Throat chicken derived Allergy Anaphylaxis Verified 05/03/22 11:48 Exam Data for Last 24 hours Vital signs and Labs for Last 24 Hours: Temp Pulse Resp BP Pu
--- NOTE | 2022-05-29 10:14 | HMH.PHAINT1 ---
Pharmacy Intervention Comments: MEDICATION RECONCILIATION COMPLETE USING EXTERNAL PHARMACY FILL HISTORY AND MOST RECENT MD OFFICE VISIT.
--- NOTE | 2022-05-29 10:15 | P.CONPHA_ITS ---
[facility] Pharmacy VTE Monitoring Patient Demographics Admission date: 05/29/22 Report Date: 05/29/22 Time: 10:15 Patient Allergies metoclopramide [From Reglan] Allergy (Severe, Verified 05/03/22 11:48) Chest Pain Poultry Allergy (Severe, Verified 05/03/22 11:48) Swelling of Lip/Tongue/Throat chicken derived Allergy (Verified 05/03/22 11:48) Anaphylaxis Height: 1.78 m Weight: 105.233 kg Current Active Problems (Updated 05/29/22 @ 09:33 by Kevin Jimenez MD) Hypertension (Acute) Type 2 diabetes mellitus (Acute) Acute pancreatitis (Acute) VTE Risk Labs: VTE Related Lab Results Hgb 16.7 g/dL (14.1-18.0) 05/28/22 20:23 Hct 51.8 % (42.0-52.0) 05/28/22 20:23 Plt Count 299 K/mm3 (142-424) 05/28/22 20:23 BUN 17 mg/dl (9-20) 05/28/22 20:23 Creatinine 1.00 mg/dl (0.66-1.25) 05/28/22 20:23 Estimated Creat Clear 112 mL/min (50-200) 05/28/22 20:23 Was VTE Risk Assessment Performed: No VTE Score: 2 VTE Risk Level: Very Low Risk Prophylaxis VTE Prophylaxis Ordered?: Yes Types of VTE Prophylaxis: TEDS Knee High Location of Applied Device: Bilateral Lower Extremeties
--- NOTE | 2022-05-29 10:27 | PC.NURSE ---
Pt walked to the bathroom and had 1 unmeasured void
[2022-05-29 11:49] LABS: POC Glucose,Bedside 97 (70-110)
--- NOTE | 2022-05-29 13:18 | PC.NURSE ---
t had one unmeasured void
[2022-05-29 17:20] LABS: POC Glucose,Bedside 83 (70-110)
[2022-05-29 20:44] LABS: POC Glucose,Bedside 75 (70-110)
--- NOTE | 2022-05-30 03:34 | PC.NURSE ---
Pt is A&O x 4. Pt is currently NPO. Medicating per MAR for pain. No reports of N/V or diarrhea. IV fluids switched from NS to D5NS per Dr. Costa d/t blood glucoses trending down. ABD soft, BS active x 4. No other complaints or needs voiced. Call light in reach.
[2022-05-30 04:00] VITALS: BP 147/88; PULSE 105; RESP 20; TEMP 36.4; O2SAT 96
[2022-05-30 04:38] VITALS: BMI 33.2
[2022-05-30 05:07] LABS: POC Glucose,Bedside 127 (70-110)
--- NOTE | 2022-05-30 05:57 | PC.NURSE ---
iv pump cleared from multiple shifts.
[2022-05-30 07:45] LABS: Alanine Aminotransferase 29 U/L (12-78); Albumin Level 3.4 g/dl (3.5-5.0); Albumin/Globulin Ratio 1.1 (1.1-1.8); Alkaline Phosphatase 100 U/L (38-126); Amylase 83 U/L (30-110); Aspartate Amino Transferase 19 U/L (17-59); Bilirubin,Total 0.9 mg/dl (0.2-1.3); Blood Urea Nitrogen 17 mg/dl (9-20); Calcium 8.9 mg/dl (8.4-10.2); Carbon Dioxide 14 mmol/L (22.0-30.0); Chloride 113 mmol/L (98-107); Chol/HDL Ratio 3.6 (1-3.5); Cholesterol 135 mg/dl (140-200); Creatinine Clearance Estimated 169 mL/min (50-200); Estimated Glomerular Filt Rate 115 ml/min (>60); GFR (African American) 140 ML/MIN (>60); Glucose 153 mg/dl (74-100); HDL Cholesterol 37 mg/dl (40-60); Lipase 167 U/L (23-300); Potassium 3.9 mmoL/L (3.5-5.1); Total Protein,Serum 6.4 g/dl (6.3-8.2); Triglycerides 67 mg/dl (30-150); VLDL Cholesterol 13 mg/dL (0-40)
[2022-05-30 07:53] LABS: Anion Gap 15.9 mEq/L (5-15); Sodium 139 mmol/L (136-145)
[2022-05-30 08:00] VITALS: BP 137/75; PULSE 100; RESP 18; TEMP 36.9; O2SAT 94
--- NOTE | 2022-05-30 09:16 | PC.NURSE ---
pt had 1 unmeasured void
--- NOTE | 2022-05-30 09:20 | EXP.PN ---
Subjective *Date: 05/30/22 *Time: 09:20 Interval history: Continues with left upper quadrant pain and requiring regular doses of IV morphine. No nausea or vomiting. His sugars were trending lower yesterday and IV fluids switched to D5 normal saline Exam Data for Last 24 hours Vital signs and Labs for Last 24 Hours: Temp Pulse Resp BP Pulse Ox 98.5 F 100 H 18 137/75 94 L 05/30/22 08:00 05/30/22 08:00 05/30/22 08:00 05/30/22 08:00 05/30/22 08:00 Laboratory Results - last 24 hr 05/29/22 11:30: POC Glucose 97 05/29/22 17:11: POC Glucose 83 05/29/22 20:30: POC Glucose 75 05/30/22 05:00: POC Glucose 127 H 05/30/22 06:45: Sodium 139, Potassium 3.9, Chloride 113 H, Carbon Dioxide 14 L, Anion Gap 15.9 H, BUN 17, Creatinine 0.70 D, Estimated Creat Clear 169, Estimated GFR 115, Est GFR ( Amer) 140 D, Glucose 153 H, Calcium 8.9, Total Bilirubin 0.9, AST 19, ALT 29, Alkaline Phosphatase 100, Total Protein 6.4, Albumin 3.4 L D, Globulin 3.0, Albumin/Globulin Ratio 1.1, Triglycerides 67, Cholesterol 135 L, VLDL Cholesterol 13, HDL Cholesterol 37 L, Cholesterol/HDL Ratio 3.6 H, Amylase 83, Lipase 167 I & O for Last 24 hours: Intake & Output 05/27/22 05/28/22 05/29/22 05/30/22 11:59 11:59 11:59 11:59 Intake Total 2500 / 2500 3108 / 3108 Output Total 400 / 400 750 / 750 Balance 2099 / 2099 2358 / 2358 Weight 232 lb 232 lb 3.406 oz Constitutional Comments: He is alert and oriented. Color is good. Lungs are clear. Abdomen is soft and nondistended with moderate epigastric and left upper quadrant tenderness. Assessment and Plan *Assessment and plan (1) Acute pancreatitis: Status: Acute Category: Medical Code(s): K85.90 - Acute pancreatitis without necrosis or infection, unspecified (2) Type 2 diabetes mellitus: Status: Acute Category: Medical Code(s): E11.9 - Type 2 diabetes mellitus without complications (3) Hypertension: Status: Acute Category: Medical Code(s): I10 - Essential (primary) hypertension Assessment and plan all Dx Assessment and Plan All Dx:: Labs have improved but still having significant pain. Continue IV fluids and IV pain medication. Advance to clear liquid diet.
[2022-05-30 11:10] LABS: POC Glucose,Bedside 134 (70-110)
[2022-05-30 16:00] VITALS: BP 145/90; PULSE 101; RESP 16; TEMP 36.5; O2SAT 96
--- NOTE | 2022-05-30 18:46 | PC.NURSE ---
PT HAS COMPLAINED OF PAIN OF LT SIDE OF ABD X2 THIS SHIFT, RELIEVED BY PRESCRIBED PAIN MEDS. PT HAS TOLERATED CLEAR LIQUID DIET WELL. INSULIN HELD TODAY, BG IN THE 130S. ALERT X4, UP KERA, INDEPENDENT. NO CONCERNS AT THIS TIME.
[2022-05-30 19:37] VITALS: BP 151/92; PULSE 98; RESP 18; TEMP 37.1; O2SAT 97
[2022-05-31 03:31] VITALS: BP 145/93; PULSE 98; RESP 16; TEMP 37; O2SAT 97
--- NOTE | 2022-05-31 04:14 | PC.NURSE ---
No changes since previous assessment. Pt alert and oriented x 4. Pt is on clear liquid diet and tolerating well - no n/v. Pt still c/o of left sided pain - Medicating per MAR. Iv infusing per order. FSBS ACHS. BS active x 4. Pt ambulating independently in room. No other needs or complains voiced to staff. Call light in reach.
[2022-05-31 05:00] VITALS: BMI 31.4
--- NOTE | 2022-05-31 06:03 | PC.NURSE ---
IV cleared - multiple shifts.
[2022-05-31 06:39] LABS: Alanine Aminotransferase 26 U/L (12-78); Albumin Level 3.3 g/dl (3.5-5.0); Albumin/Globulin Ratio 1.1 (1.1-1.8); Alkaline Phosphatase 101 U/L (38-126); Amylase 54 U/L (30-110); Anion Gap 12.7 mEq/L (5-15); Aspartate Amino Transferase 24 U/L (17-59); Bilirubin,Total 0.6 mg/dl (0.2-1.3); Blood Urea Nitrogen 16 mg/dl (9-20); Calcium 8.9 mg/dl (8.4-10.2); Carbon Dioxide 20 mmol/L (22.0-30.0); Chloride 109 mmol/L (98-107); Creatinine Clearance Estimated 187 mL/min (50-200); Estimated Glomerular Filt Rate 138 ml/min (>60); GFR (African American) 167 ML/MIN (>60); Globulin 2.9 g/dL (1.3-3.2); Glucose 139 mg/dl (74-100); Potassium 3.7 mmoL/L (3.5-5.1); Sodium 138 mmol/L (136-145); Total Protein,Serum 6.2 g/dl (6.3-8.2)
[2022-05-31 08:00] VITALS: BP 163/92; PULSE 89; RESP 19; TEMP 36.8; O2SAT 96
--- NOTE | 2022-05-31 09:39 | P.PN_ITS ---
Subjective *Date: 05/31/22 *Time: 09:39 Interval history: Overall his abdominal pain is improved but cloth bleaching range back tender in the left upper quadrant. No nausea or vomiting. He is tolerating clear liquids. No bowel movement. Exam Data for Last 24 hours Vital signs and Labs for Last 24 Hours: Temp Pulse Resp BP Pulse Ox 98.2 F 89 19 163/92 H 96 05/31/22 08:00 05/31/22 08:00 05/31/22 08:00 05/31/22 08:00 05/31/22 08:00 Laboratory Results - last 24 hr 05/30/22 11:02: POC Glucose 134 H 05/31/22 06:06: Sodium 138, Potassium 3.7, Chloride 109 H, Carbon Dioxide 20 L, Anion Gap 12.7, BUN 16, Creatinine 0.60 L, Estimated Creat Clear 187, Estimated GFR 138, Est GFR ( Amer) 167, Glucose 139 H, Calcium 8.9, Total Bilirubin 0.6, AST 24 D, ALT 26, Alkaline Phosphatase 101, Total Protein 6.2 L, Albumin 3.3 L, Globulin 2.9, Albumin/Globulin Ratio 1.1, Amylase 54 D I & O for Last 24 hours: Intake & Output 05/28/22 05/29/22 05/30/22 05/31/22 11:59 11:59 11:59 11:59 Intake Total 2500 / 2500 3108 / 3108 3634 / 3634 Output Total 400 / 400 750 / 750 0 / 0 Balance 2100 / 2100 2358 / 2358 3634 / 3634 Weight 232 lb 232 lb 3.406 oz 220 lb Constitutional Comments: Alert and oriented. Lungs are clear. Heart is regular. Abdomen is soft and nondistended with mild to moderate left upper quadrant tenderness. Assessment and Plan *Assessment and plan (1) Acute pancreatitis: Status: Acute Category: Medical Code(s): K85.90 - Acute pancreatitis without necrosis or infection, unspecified (2) Type 2 diabetes mellitus: Status: Acute Category: Medical Code(s): E11.9 - Type 2 diabetes mellitus without complications (3) Hypertension: Status: Acute Category: Medical Code(s): I10 - Essential (primary) hypertension Assessment and plan all Dx Assessment and Plan All Dx:: Amylase is normal. Advance to full liquid diet. Blood pressure remains elevated. Continue irbesartan. Possible discharge home tomorrow.
[2022-05-31 10:44] VITALS: BMI 31.4
--- NOTE | 2022-05-31 15:29 | PC.NURSE ---
AOX4, C/O ABD PAIN AND WAS MEDICATED WITH PRN MORPHINE X2 SO FAR THIS SHIFT WITH GOOD EFFECTIVENESS. AMBULATES TO RESTROOM INDEPENDENTLY AND TOLERATES WELL. NO O2 SUPPORT THIS SHIFT. NO COMPLAINTS OF SOB.
[2022-05-31 16:00] VITALS: BP 156/78; PULSE 87; RESP 20; TEMP 36.6; O2SAT 96
[2022-05-31 19:05] LABS: POC Glucose,Bedside 126 (70-110)
[2022-05-31 19:05] LABS: POC Glucose,Bedside 142 (70-110)
[2022-05-31 19:05] LABS: POC Glucose,Bedside 138 (70-110)
[2022-05-31 19:05] LABS: POC Glucose,Bedside 135 (70-110)
[2022-05-31 19:52] VITALS: BP 183/101; PULSE 90; RESP 18; TEMP 36.5; O2SAT 97
[2022-05-31 21:26] LABS: POC Glucose,Bedside 156 (70-110)
--- NOTE | 2022-05-31 21:54 | PC.NURSE ---
20G IV in RAC D/C 20G IV in LAC started at this time.
[2022-05-31 22:45] VITALS: BP 160/96
[2022-06-01] VITALS: BP 160/90
[2022-06-01 04:00] VITALS: BP 170/90; PULSE 95; RESP 17; TEMP 36.9; O2SAT 98
--- NOTE | 2022-06-01 05:04 | PC.NURSE ---
NO ACUTE CHANGES SINCE PREVIOUS ASSESSMENT. PT HAS RESTED INTERMITTENTLY THIS SHIFT. LUNG SOUND REMAIN CLEAR. REMAINS ON ROOM AIR AND IS TOLERATING WELL. PT HAS C/O BACK PAIN THAT RADIATES TO HIS LUQ. MEDICATED PER NOV FOR PAIN. MAALOX GIVEN FOR GI UPSET ONCE THIS SHIFT. BOWEL SOUND PRESENT IN ALL 4 QUADS. AMBULATING IN ROOM INDEPENDENTLY. BP HAS BEEN ELEVATED THIS SHIFT. SBP 160-185, DBP HAS BEEN IN THE 90'S. PT HAS NO C/O SOB OR CP. CALL [place] WITHIN REACH.
[2022-06-01 06:00] VITALS: BMI 32.2
[2022-06-01 08:00] VITALS: BP 193/97; PULSE 92; RESP 18; TEMP 36.7; O2SAT 96
--- NOTE | 2022-06-01 09:19 | EXP.PN ---
Subjective *Date: 06/01/22 *Time: 07:55 Interval history: patient feeling much better today and planning to go home. He is able to eat without discomfort. He did sleep some last night. He is ambulated without difficulty. Bowels have not moved. He is voiding QS. He denies chest pain and shortness of breath. Exam Data for Last 24 hours Vital signs and Labs for Last 24 Hours: Temp Pulse Resp BP Pulse Ox 98.0 F 92 H 18 193/97 H 96 06/01/22 08:00 06/01/22 08:00 06/01/22 08:00 06/01/22 08:00 06/01/22 08:00 Laboratory Results - last 24 hr 05/30/22 20:14: POC Glucose 142 H 05/31/22 05:33: POC Glucose 138 H 05/31/22 11:08: POC Glucose 126 H 05/31/22 16:19: POC Glucose 135 H 05/31/22 21:13: POC Glucose 156 H I & O for Last 24 hours: Intake & Output 05/29/22 05/30/22 05/31/22 06/01/22 11:59 11:59 11:59 11:59 Intake Total 2500 / 2500 3108 / 3108 4114 / 4114 9566 / 9566 Output Total 400 / 400 750 / 750 0 / 0 0 / 0 Balance 2100 / 2100 2358 / 2358 4114 / 4114 9566 / 9566 Weight 232 lb 232 lb 3.406 oz 219 lb 15.988 oz 225 lb Constitutional Constitutional: no acute distress Comments: Conversant *Routine Respiratory Exam Respiratory: Present CTA bilaterally ( anteriorly and posteriorly) *Routine Cardiovascular Exam Cardiovascular: Present RRR *Routine Abdominal Exam Abdominal: Present soft, normoactive bowel sounds and tenderness ( mostly in epigastrium and left upper quadrant) *Routine Extremities Exam Extremities: Absent edema or calf tenderness *Routine Neurological Exam Neurological: Present alert and oriented X3 Assessment and Plan *Assessment and plan (1) Acute pancreatitis: Status: Acute Category: Medical Code(s): K85.90 - Acute pancreatitis without necrosis or infection, unspecified (2) Hypertension: Status: Acute Category: Medical Code(s): I10 - Essential (primary) hypertension (3) Type 2 diabetes mellitus: Status: Acute Category: Medical Code(s): E11.9 - Type 2 diabetes mellitus without complications (4) Hx laparoscopic cholecystectomy: Status: Acute Category: Surgical Code(s): Z90.49 - Acquired absence of other specified parts of digestive tract (5) Hyperlipidemia: Status: Chronic Qualifiers: Hyperlipidemia type: unspecified Qualified Code(s): E78.5 - Hyperlipidemia, unspecified Category: Medical Code(s): E78.5 - Hyperlipidemia, unspecified Plan discharged to home. Assessment and plan all Dx Assessment and Plan All Dx:: Stable for discharge. Continue bland diet. COntinue Losartan and increase dose to 100mg qd. Stop Pantoprazole at is has been known to cause pancreatitis. Switch to Dexilant. He will remain off work until rechecked in office in 2-3 days
--- NOTE | 2022-06-01 15:43 | EXP.DC.SUM ---
General Admission date:: 05/29/22 Discharge date: 06/01/22 HPI HPI HPI: Mr. Wolf is a 57-year-old white male with a history of gallstone pancreatitis, diabetes, hyperlipidemia, and Price's esophagus who presented to the emergency room with a 2-day history of progressively worsening left upper quadrant abdominal pain radiating into his back.? He had some mild nausea but no vomiting.? No fever.? No change in his bowel habits.? His symptoms were reminiscent of his past bouts with pancreatitis but he experienced no problems since his cholecystectomy in 2019.? He denied alcohol use.? His last lipid profile was normal 3 months ago. He was evaluated in the emergency room and found to have elevated lipase and amylase.? CT scan was consistent with mild pancreatitis.? No necrosis or cystic formation.? He was admitted for further treatment with bowel rest, IV fluids, and IV pain medication. Hospital Course Hospital Course Hospital Course: Patient was admitted for IV fluids, GI rest, and symptom/pain treatment. Etiology of the pancreatitis was unclear. Protonix was known to cause pancreatitis and this was held. Irbesartan was initiated for his elevated blood pressure. Diabetes was managed with sliding scale insulin while NPO. Initially patient did require regular doses of IV morphine for left upper quadrant pain. He had no nausea or vomiting. Sugars were trending lower and he was started on D5 normal saline. 05/31/2022 abdominal pain had improved but he was still operator brandy in the left upper quadrant. He had no nausea or vomiting. He was tolerating clear liquids. He had had no bowel movement. Amylase was noted to be normal. Diet was advanced to full liquid diet. On 06/01/2022 patient had tolerated full liquids. He said he felt much better. He was anxious to go home. He had slept and ambulated in the room without difficulty. He was voiding QS. Bowels had not moved. On this date he was discharged home. Patient was discharged to home in stable stable and satisfactory condition. He was to continue Dexilant and losartan in addition to his other home meds. He was to be on a low-fat low-cholesterol diet. Follow-up with Dr. Jimenez on 06/08/2022. Exam Data for Last 24 hours Vital signs and Labs for Last 24 Hours: Temp Pulse Resp BP Pulse Ox 98.0 F 92 H 18 193/97 H 96 06/01/22 08:00 06/01/22 08:00 06/01/22 08:00 06/01/22 08:00 06/01/22 08:00 Laboratory Results - last 24 hr 05/30/22 20:14: POC Glucose 142 H 05/31/22 05:33: POC Glucose 138 H 05/31/22 11:08: POC Glucose 126 H 05/31/22 16:19: POC Glucose 135 H 05/31/22 21:13: POC Glucose 156 H I & O for Last 24 hours: Intake & Output 05/30/22 05/31/22 06/01/22 06/02/22 11:59 11:59 11:59 11:59 Intake Total 3108 / 3108 4114 / 4114 07735 / 13388 Output Total 750 / 750 0 / 0 0 / 0 Balance 2358 / 2358 4114 / 4114 05830 / 90885 Weight 232 lb 3.406 oz 219 lb 15.988 oz 225 lb Narrative: Constitutional Constitutional: no acute distress Comments: ? Conversant *Routine Respiratory Exam Respiratory: Present CTA bilaterally ( anteriorly and posteriorly) *Routine Cardiovascular Exam Cardiovascular: Present RRR *Routine Abdominal Exam Abdominal: Present soft, normoactive bowel sounds and tenderness ( mostly in epigastrium and left upper quadrant) *Routine Extremities Exam Extremities: Absent edema or calf tenderness *Routine Neurological Exam Neurological: Present alert and oriented X3 Results Data Completed and Pending Completed studies during hospitalization [Text1]: 05/29/22 11:30:?POC Glucose 97 05/29/22 17:11:?POC Glucose 83 05/29/22 20:30:?POC Glucose 75 05/30/22 05:00: POC Glucose 127 H 05/30/22 06:45:?Sodium 139, Potassium 3.9,?Chloride 113 H,?Carbon Dioxide 14 L,?Anion Gap 15.9 H, BUN 17,?Creatinine 0.70? D, Estimated Creat Clear 169, Estimated GFR 115,?Est GFR ( Amer) 140? D,?Glucose 153 H, Calcium 8.9, Total Bilirubin 0.9, AST 19, ALT 29, Alk
--- NOTE | 2022-06-02 14:05 | CARE MANAGER ---
Patient returned phone call and discussed hospital discharge. He states he only picked up one medication because the Dexilant was too expensive out of pocket and insurance didn't cover. He states the pharmacy was sending a message to Dr. Jimenez to switch him or griggs with insurance. I also notified Dr. Jimenez of this.
[2022-06-02 18:21] LABS: Direct LDL Cholesterol 61 mg/dL (100-129)
== END 2022-06-01 10:42 | disposition home or self-care (01) | DRG 440 ==
LOC: ER 21:53 → 2ND 23:31
PROVIDERS: Admitting Provider Family Medicine; Emergency Provider Emergency Medicine; PCP Family Medicine; Visit Provider Family Medicine
DX: K85.90 Acute pancreatitis without necrosis or infection, unspecified (principal); E11.9 Type 2 diabetes mellitus without complications; I10 Essential (primary) hypertension; E78.5 Hyperlipidemia, unspecified; R12 Heartburn
CPT/HCPCS: 36415; 74177; 80053; 80061; 81001; 82150; 82962; 83690; 84145; 85025; 85651; 86140; 99285; C9803; Q9967; U0003; U0005

== ENCOUNTER → 2022-07-03 12:42 | Outpatient (CLI) | payer BC, SELFPAY ==
[2022-07-03 12:46] LABS: MANUAL DIFFERENTIAL MANUAL DIFFERENTIAL (MANUAL DIFF)
--- NOTE | 2022-07-03 13:02 | ECG_ITS ---
APPROVED REPORT Exam: Resting ECG HR:83 bpm ECG Measurements Heart Rate [address] 140 P 59 QRSd 84 QRS 61 QT 349 T 47 QTc 389 Conclusion SINUS RHYTHM NORMAL ECG UNCONFIRMED REPORT Electronically signed by : Dewayne Sanchez MD 07/03/2022 17:37:21
[2022-07-03 13:24] LABS: Basophils # 0.1 K/mm3 (0-0.2); Eosinophils # 0.4 K/mm3 (0.0-0.4); Eosinophils % 3.8 % (0.1-12.0); Hematocrit 50.7 % (42.0-52.0); Hemoglobin 16.7 g/dL (14.1-18.0); Lymphocytes # 1.7 K/mm3 (0.7-4.5); Lymphocytes % 18.4 % (10-50); Mean Corpuscular Hemoglobin 28.3 pg (27.0-31.2); Mean Corpuscular Volume 85.9 fl (80-94); Mean Platelet Volume 7.5 fl (7.4-10.4); Monocytes # 0.6 K/mm3 (0.1-1.0); Monocytes % 6.3 % (1.7-9.3); Neutrophils # 6.4 K/mm3 (1.8-7.8); Neutrophils % 70.5 % (37.0-80.0); Platelet Count 234 K/mm3 (142-424); Red Cell Distribution Width 14.7 % (11.5-17.5); White Blood Count 9.1 K/mm3 (4.8-10.8)
[2022-07-03 13:35] LABS: Alanine Aminotransferase 23 U/L (12-78); Albumin/Globulin Ratio 1.6 (1.1-1.8); Alkaline Phosphatase 141 U/L (38-126); Anion Gap 18.6 mEq/L (5-15); Aspartate Amino Transferase 18 U/L (17-59); Bilirubin,Total 0.5 mg/dl (0.2-1.3); Blood Urea Nitrogen 18 mg/dl (9-20); Calcium 9.3 mg/dl (8.4-10.2); Carbon Dioxide 28 mmol/L (22.0-30.0); Chloride 99 mmol/L (98-107); Estimated Glomerular Filt Rate 99 ml/min (>60); GFR (African American) 120 ML/MIN (>60); Globulin 2.5 g/dL (1.3-3.2); Glucose 232 mg/dl (74-100); Potassium 4.6 mmoL/L (3.5-5.1); Sodium 141 mmol/L (136-145); Total Protein,Serum 6.5 g/dl (6.3-8.2)
[2022-07-03 15:40] LABS: Eosinophils % 3 % (0-3); Lymphocytes % 25 % (10-50); Monocytes % 2 % (2-9); Neutrophils % 70 % (42-76); Platelet Estimate Normal; RBC Morphology Normal; Total Cells Counted 100
== END ==
LOC: LAB 12:43
PROVIDERS: PCP Family Medicine; Visit Provider Otolaryngology
DX: Z01.812 Encounter for preprocedural laboratory examination (principal); Z20.822 Contact with and (suspected) exposure to COVID-19; H65.93 Unspecified nonsuppurative otitis media, bilateral; K13.79 Other lesions of oral mucosa
CPT/HCPCS: 36415; 80053; 85007; 85014; 85018; 85048; 85049; 93005; C9803; U0003; U0005

== ENCOUNTER 2022-07-05 06:23 | Day surgery (SDC) | payer BC, SELFPAY ==
[2022-07-05 06:52] VITALS: BP 138/86; PULSE 81; RESP 18; TEMP 36.8; O2SAT 98; BMI 31.1
[2022-07-05 07:13] LABS: POC Glucose,Bedside 171 (70-110)
--- NOTE | 2022-07-05 07:37 | P.PN_ITS ---
[facility] Medical History (Updated 07/05/22 @ 06:50 by Newton Delgado RN) Bile reflux gastritis Helicobacter pylori (H. pylori) infection HLD (hyperlipidemia) HTN (hypertension) Hyperlipidemia Mesenteric panniculitis Pancreatitis Type 2 diabetes mellitus Surgical History History of tonsillectomy Hx laparoscopic cholecystectomy Family History (Updated 07/05/22 @ 06:50 by Newton Delgado RN) Other No significant family history Social History (Updated 07/05/22 @ 06:51 by Newton Delgado RN) Smoking Status: Never smoker alcohol intake: never substance use type: denies use current occupational status: employed and other Travel in the last 8 weeks: None household members: spouse housing: house caffeine: Yes [facility] Anesthesia Checklist Patient Identification Patient Identification: Arm Band and Verbal (Name & ) Structural Data Admitted From: Home Planned Operative Procedure/s: BMT Consent for Planned Operative Procedure(s) Verified: Yes Verified Documents: Surgical Consent NPO Status Verified Time NPO: 00:00 Additional verifications Anesthesia Reactions: No Hx Blood Transfusions: No Blood Transfusion Reaction: No Airway Assessment C-Spine Mobility Assessed: Yes TMJ Mobility Assessed: Yes Dentition: Good Dentition Neurological Assessment Level of Consciousness: Awake, Alert and Appropriate Anesthesia Plan Anesthesia Risk discussed: Yes ASA Class: II Anesthesia Type: MAC
[2022-07-05 08:10] VITALS: BP 156/86; PULSE 80; RESP 16; TEMP 36.7; O2SAT 92
[2022-07-05 08:20] VITALS: BP 149/90; PULSE 82; RESP 17; O2SAT 95
[2022-07-05 08:30] VITALS: BP 145/87; PULSE 83; RESP 17; O2SAT 95
[2022-07-05 08:40] VITALS: BP 146/93; PULSE 76; RESP 18; O2SAT 95
--- NOTE | 2022-07-05 09:09 | P.OP_ITS ---
Date of procedure: 07/05/22 Pre-op Diagnosis:: Chronic serous otitis media Post-op Diagnosis:: Same Procedure performed:: Bilateral myringotomy with tube placement Surgeon:: Hermilo Melchor III, MD CUSTOMER GREETER:: Carson Garcia Anesthesia: MAC Estimated blood loss (mL): 0 Operative findings:: Left greater than right serous otitis media, bilateral atelectasis of both tympanic membranes Operative note:: The patient was brought to the operating room and placed under general sedation with anesthesia monitoring. The right external auditory canal was cleaned under microscopic guidance. He did have evidence of atelectasis in the inferior posterior portion of the drum. I elected to place the incision anterior to this. Serous effusion was aspirated from the middle ear space and a Cheryl bobbin tube was placed through the incision. I then placed antibiotic and steroid drops in the canal. A similar procedure with similar findings was noted on the left side. Once the drops have been placed on the left, the patient was awakened in the operating room and taken to the recovery room in good condition. Condition: stable Disposition: PACU Complications:: None
== END 2022-07-05 09:10 | disposition home or self-care (01) ==
PROVIDERS: PCP Family Medicine; Visit Provider Otolaryngology
PROC: (CPT 69436; principal; 2022-07-05 07:30)
DX: H65.23 Chronic serous otitis media, bilateral (principal); Z79.899 Other long term (current) drug therapy; E11.9 Type 2 diabetes mellitus without complications
CPT/HCPCS: 69436; 82962; J2405

== ENCOUNTER → 2022-10-19 09:05 | Outpatient (CLI) | payer BC, SELFPAY ==
--- NOTE | 2022-10-19 09:13 | XR_ITS ---
FINAL REPORT CLINICAL HISTORY: LT KNEE PAIN FINDINGS: LEFT KNEE 3 views of the left knee were obtained. There is no acute fracture or dislocation. Visualized joint spaces are normally aligned. Joint spaces are intact. Soft tissues are unremarkable. IMPRESSION: No acute bony abnormality. Reviewed, Interpreted and Dictated by Diego Bennett MD Transcribed by Tierra Yeh Authenticated and [facility]
--- NOTE | 2022-10-19 09:13 | XR_ITS ---
FINAL REPORT CLINICAL HISTORY: RT ANKLE PAIN FINDINGS: RIGHT ANKLE Three views of the right ankle were obtained. There is no acute fracture or dislocation. The joint spaces and mortise are intact. There is no soft tissue abnormality. IMPRESSION: No acute bony abnormality. Reviewed, Interpreted and Dictated by Diego Bennett MD Transcribed by Tierra Yeh Authenticated and [facility]
== END ==
LOC: RAD 09:06
PROVIDERS: PCP Family Medicine; Visit Provider Family Medicine
DX: M25.562 Pain in left knee (principal); M25.571 Pain in right ankle and joints of right foot
CPT/HCPCS: 73562; 73610

== ENCOUNTER 2022-12-08 22:38 | Emergency (ER) | payer BC, SELFPAY ==
[2022-12-08 22:40] VITALS: BP 161/97; PULSE 98; RESP 18; TEMP 36.8; O2SAT 98; BMI 31.1
[2022-12-08 22:51] VITALS: BMI 31.1
--- NOTE | 2022-12-08 22:53 | CT_ITS ---
PROCEDURE INFORMATION: Exam: CT Abdomen And Pelvis Without Contrast Exam date and time: 12/08/2022 11:05 PM Age: 57 years old Clinical indication: Bloating and nausea and vomiting; Prior surgery; Surgery type: Cholecystectomy; Additional info: Abd bloating n/v/d TECHNIQUE: Imaging protocol: Computed tomography of the abdomen and pelvis without contrast. Radiation optimization: All CT scans at this facility use at least one of these dose optimization techniques: automated exposure control; mA and/or kV adjustment per patient size (includes targeted exams where dose is matched to clinical indication); or iterative reconstruction. REPORTING DATA: Count of CT and Cardiac NM exams in prior 12 months: This patient has received 2 known CTs and 0 known cardiac nuclear medicine studies in the 12 months prior to the current study. COMPARISON: CT ABDOMEN PELVIS W CON 05/28/2022 10:50 PM FINDINGS: Liver: Normal. No mass. Gallbladder and bile ducts: Gallbladder is surgically absent. Pancreas: Normal. No ductal dilation. Spleen: Normal. No splenomegaly. Adrenal glands: Normal. No mass. Kidneys and ureters: Normal. No hydronephrosis. Stomach and bowel: Unremarkable. No obstruction. No mucosal thickening. Appendix: No evidence of appendicitis. Intraperitoneal space: Unremarkable. No free air. No significant fluid collection. Vasculature: Unremarkable. No abdominal aortic aneurysm. Lymph nodes: Moderate mesenteric fatty stranding and mild mesenteric lymphadenopathy has increased from the previous study. Urinary bladder: Unremarkable as visualized. Reproductive: Unremarkable as visualized. Bones/joints: Mild degenerative changes noted throughout the lower spine. Soft tissues: Unremarkable. IMPRESSION: Interval increase of mild findings of mesenteric panniculitis in the mid abdomen. Otherwise stable exam.
[2022-12-08 22:55] VITALS: BP 161/97; PULSE 97; RESP 18; TEMP 36.6; O2SAT 97; BMI 31.1
[2022-12-08 23:00] VITALS: BP 172/94; PULSE 93; O2SAT 97
[2022-12-08 23:11] LABS: Chloride 98 mmol/L (98-107); Potassium 3.5 mmoL/L (3.5-5.1); Sodium 138 mmol/L (136-145)
[2022-12-08 23:12] LABS: Microscopic, Urine URINE MICROSCOPIC (MICROSCOPIC)
[2022-12-08 23:14] LABS: Alanine Aminotransferase 40 U/L (12-78); Albumin/Globulin Ratio 1.5 (1.1-1.8); Alkaline Phosphatase 123 U/L (38-126); Amylase 65 U/L (30-110); Anion Gap 15.5 mEq/L (5-15); Aspartate Amino Transferase 33 U/L (17-59); Bilirubin,Total 0.8 mg/dl (0.2-1.3); Blood Urea Nitrogen 21 mg/dl (9-20); Calcium 9.1 mg/dl (8.4-10.2); Carbon Dioxide 28 mmol/L (22.0-30.0); Creatinine Clearance Estimated 138 mL/min (50-200); Estimated Glomerular Filt Rate 99 ml/min (>60); GFR (African American) 120 ML/MIN (>60); Globulin 3.4 g/dL (1.3-3.2); Glucose 170 mg/dl (74-100); Lipase 63 U/L (23-300); Total Protein,Serum 8.4 g/dl (6.3-8.2)
[2022-12-08 23:17] LABS: Appearance,Urine CLEAR (Clear); Bilirubin,Urine Negative (Negative); Blood, Urine Negative (Negative); Color,Urine YELLOW (Yellow); Glucose,Urine (UA) 3+ (Negative); Ketones,Urine 1+ (Negative); Leukocyte Esterase,Urine Negative (Negative); Nitrate,Urine Negative (Negative); PH,Urine 5.5 (5.0-8.5); Protein,Urine Negative (Negative); Urobilinogen,Urine 0.2 EU/dl (0.2)
[2022-12-08 23:29] LABS: WBC,Urine Occasional #/hpf (0-3)
[2022-12-08 23:30] VITALS: BP 143/78; PULSE 85; O2SAT 97
--- NOTE | 2022-12-08 23:56 | HMH.EDNVD ---
Discharge Plan Disposition Patient Disposition: Home, Self-Care Chief Complaint: Nausea/Vomiting/Diarrhea Prescriptions Prescriptions: No Action pantoprazole 40 mg tablet,delayed release (DR/EC) 40 mg PO ondansetron HCl [Zofran] 4 mg tablet 4 mg PO TIDP PRN (Reason: Nausea) famotidine 40 mg tablet 40 mg PO HS Label Comments: TAKE 1 TABLET BY MOUTH EVERY DAY AT BEDTIME lovastatin 20 mg tablet 20 mg PO DAILY Label Comments: TAKE 1 TABLET BY MOUTH EVERY DAY Jardiance 25 mg tablet 25 mg PO DAILYDM Label Comments: TAKE 1 TABLET BY MOUTH EVERY DAY IN THE MORNING montelukast 10 mg tablet 10 mg PO HS Label Comments: TAKE 1 TABLET BY MOUTH EVERY DAY glipizide 10 mg tablet extended release 24hr 10 mg PO DAILY Qty: 90 0RF metformin 1,000 mg tablet 1,000 mg PO BID Qty: 90 0RF aspirin 81 MG tablet,delayed release (DR/EC) 81 mg PO DAILY bupropion HCl 75 MG tablet 75 mg PO BID fluticasone propionate 50 mcg/actuation spray,suspension 1 spray INTRANASAL DAILY Label Comments: INHALE 1 SPRAY INTO EACH NOSTRIL ONCE DAILY rabeprazole [AcipHex] 20 mg Tablet,Delayed Release (Dr/Ec) 20 mg PO DAILY losartan 100 mg tablet 100 mg PO DAILY dexlansoprazole [Dexilant] 60 mg capsule,biphase delayed releas 60 mg PO DAILY Referrals Follow up/Referrals: Kevin Jimenez MD [Primary Care Provider] - See instructions Clinical Impressions Clinical Impression: Panniculitis Instructions Patient Instructions: DI for Nausea -- Adult Discharge ED Provider: [facility] (ED)Prasanth Nausea/Vomiting/Diarrhea HPI General Chief complaint: Nausea/Vomiting/Diarrhea Stated complaint: stomach pain vomiting Time Seen by Provider: 12/08/22 23:10 Mode of Arrival: Ambulatory Source of Information: Patient and Medical Record Limitations: No Limitations Description of Symptoms (Recalled from ER Triage Doc. by RN): N/V/D since Tuesday History of Present Illness HPI Narrative: abd pain with hx of vomiting complaint: vomiting and abdominal pain Onset (ago): hour(s) Associated Abdominal Pain: Yes Location of pain: diffuse Severity: moderate Associated symptoms: denies other symptoms Related Data Home Medications Medication Instructions Recorded Confirmed aspirin 81 mg tablet,delayed 81 mg PO DAILY heart [facility] [place] 05/23/18 07/19/22 release bupropion HCl 75 mg tablet 75 mg PO BID mood 10/23/18 07/19/22 ondansetron HCl 4 mg tablet 4 mg PO TIDP PRN Nausea 12/22/18 07/19/22 (Zofran) empagliflozin 25 mg tablet 25 mg PO DAILYDM Diabetes 05/03/22 07/19/22 (Jardiance) famotidine 40 mg tablet 40 mg PO HS Heartburn 05/03/22 07/19/22 lovastatin 20 mg tablet 20 mg PO DAILY Cholesterol 05/03/22 07/19/22 montelukast 10 mg tablet 10 mg PO HS Allergy symptoms 05/03/22 07/19/22 fluticasone propionate 50 1 spray intranasal DAILY Allergy 05/29/22 07/19/22 mcg/actuation nasal symptoms spray,suspension dexlansoprazole 60 mg 60 mg PO DAILY . 07/05/22 07/19/22 capsule,biphase delayed release (Dexilant) losartan 100 mg tablet 100 mg PO DAILY bp 07/05/22 07/19/22 rabeprazole 20 mg tablet,delayed 20 mg PO DAILY . 07/05/22 07/19/22 release (AcipHex) pantoprazole 40 mg tablet,delayed 40 mg PO 07/19/22 07/19/22 release Previous Rx's Medication Instructions Recorded glipizide 10 mg tablet, extended 10 mg PO DAILY Diabetes #90 tabs 06/22/18 release 24 hr metformin 1,000 mg tablet 1,000 mg PO BID Diabetes #90 tabs 07/04/18 Allergies Allergy/AdvReac Type Severity Reaction Status Date / Time metoclopramide [From Reglan] Allergy Severe Chest Pain Verified 07/19/22 15:16 Poultry Allergy Severe Swelling Verified 07/19/22 15:16 of Lip/Tongue/Throat chicken derived Allergy Anaphylaxis Verified 07/19/22 15:16 [facility] Disclaimer: The information contained in this section may have been updated after t
--- NOTE | 2022-12-08 23:58 | PC.NURSE ---
Dr. Burt at
[2022-12-09] VITALS: BP 145/83; PULSE 82; O2SAT 96
[2022-12-09 00:30] VITALS: BP 134/73; PULSE 86; O2SAT 98
[2022-12-09 01:00] VITALS: BP 128/78; PULSE 79; O2SAT 98
[2022-12-09 01:04] VITALS: BP 128/78; PULSE 79; RESP 16; TEMP 36.7; O2SAT 98
== END 2022-12-09 01:06 | disposition home or self-care (01) ==
PROVIDERS: Emergency Provider Emergency Medicine; PCP Family Medicine
DX: M79.3 Panniculitis, unspecified (principal); E78.5 Hyperlipidemia, unspecified; I10 Essential (primary) hypertension; E11.9 Type 2 diabetes mellitus without complications; Z87.19 Personal history of other diseases of the digestive system; Z90.49 Acquired absence of other specified parts of digestive tract
CPT/HCPCS: 74176; 80053; 81001; 82150; 83690; 85025; 96361; 96374; 96375; 99284; 99285; J2405

== ENCOUNTER 2023-04-10 12:44 | Emergency (ER) | payer BC, SELFPAY ==
[2023-04-10 12:44] VITALS: BP 150/86; PULSE 97; RESP 18; TEMP 36.8; O2SAT 95; BMI 31.8
--- NOTE | 2023-04-10 12:55 | EXP.UTC ---
Discharge Plan Disposition Patient Disposition: Home, Self-Care Condition: Good Prescriptions Prescriptions: New cephalexin 500 mg capsule 500 mg PO QID Qty: 40 0RF mupirocin 2 % ointment 1 applic topical TID 7 Days Qty: 15 0RF methylprednisolone 4 mg Tablets,Dose Pack 4 mg PO DIRECTED Qty: 21 0RF No Action pantoprazole 40 mg tablet,delayed release (DR/EC) 40 mg PO lovastatin 20 mg tablet 20 mg PO DAILY Patient Comments: TAKE 1 TABLET BY MOUTH EVERY DAY Jardiance 25 mg tablet 25 mg PO DAILYDM Patient Comments: TAKE 1 TABLET BY MOUTH EVERY DAY IN THE MORNING montelukast 10 mg tablet 10 mg PO HS Patient Comments: TAKE 1 TABLET BY MOUTH EVERY DAY promethazine 12.5 mg tablet 12.5 mg PO TID Qty: 14 0RF dicyclomine 10 mg capsule 10 mg PO TID 5 Days Qty: 15 0RF mupirocin 2 % ointment 1 applic topical BID Qty: 15 0RF triamcinolone acetonide 0.1 % cream 1 applic topical BID Qty: 15 0RF cephalexin 500 mg capsule 500 mg PO TID 7 Days Qty: 21 0RF glipizide 10 mg tablet extended release 24hr 10 mg PO DAILY Qty: 90 0RF metformin 1,000 mg tablet 1,000 mg PO BID Qty: 90 0RF aspirin 81 MG tablet,delayed release (DR/EC) 81 mg PO DAILY bupropion HCl 75 MG tablet 75 mg PO BID fluticasone propionate 50 mcg/actuation spray,suspension 1 spray INTRANASAL DAILY Patient Comments: INHALE 1 SPRAY INTO EACH NOSTRIL ONCE DAILY rabeprazole [AcipHex] 20 mg Tablet,Delayed Release (Dr/Ec) 20 mg PO DAILY losartan 100 mg tablet 100 mg PO DAILY dexlansoprazole [Dexilant] 60 mg capsule,biphase delayed releas 60 mg PO DAILY Referrals Follow up/Referrals: Kevin Jimenez MD [Primary Care Provider] - See instructions Activity Restrictions/Add. Instructions Additional Instructions/Restrictions: Don't start the oral steroids until tomorrow. Follow up with your regular doctor. GO TO THE ER FOR ANY WORSENING SYMPTOMS OR CONCERNS Clinical Impressions Clinical Impression: Impetigo Instructions Patient Instructions: STEFANY Walters for Impetigo Discharge ED Provider: Kian Stallworth [facility] [place] HPI General Stated complaint: rash on arms and legs Time Seen by Provider: 04/10/23 12:54 History of Present Illness Provider Complaint: He states that for the past 1 week he has had an itchy rash on his bilateral ankles, feet, hands and forearm. He denies any known exposure to any allergens. He is a diabetic. Related Data Home Medications Medication Instructions Recorded Confirmed aspirin 81 mg tablet,delayed 81 mg PO DAILY heart health 05/23/18 04/05/23 release bupropion HCl 75 mg tablet 75 mg PO BID mood 10/23/18 04/05/23 empagliflozin 25 mg tablet 25 mg PO DAILYDM Diabetes 05/03/22 04/05/23 (Jardiance) lovastatin 20 mg tablet 20 mg PO DAILY Cholesterol 05/03/22 04/05/23 montelukast 10 mg tablet 10 mg PO HS Allergy symptoms 05/03/22 04/05/23 fluticasone propionate 50 1 spray intranasal DAILY Allergy 05/29/22 04/05/23 mcg/actuation nasal symptoms spray,suspension dexlansoprazole 60 mg 60 mg PO DAILY . 07/05/22 04/05/23 capsule,biphase delayed release (Dexilant) losartan 100 mg tablet 100 mg PO DAILY bp 07/05/22 04/05/23 rabeprazole 20 mg tablet,delayed 20 mg PO DAILY . 07/05/22 04/05/23 release (AcipHex) pantoprazole 40 mg tablet,delayed 40 mg PO 07/19/22 04/05/23 release Previous Rx's Medication Instructions Recorded glipizide 10 mg tablet, extended 10 mg PO DAILY Diabetes #90 tabs 06/22/18 release 24 hr metformin 1,000 mg tablet 1,000 mg PO BID Diabetes #90 tabs 07/04/18 dicyclomine 10 mg capsule 10 mg PO TID 5 days #15 caps 12/09/22 promethazine 12.5 mg tablet 12.5 mg PO TID #14 tabs 12/09/22 cephalexin 500 mg capsule 500 mg PO TID 7 days #21 caps 03/31/23 mupirocin 2 % topical ointment 1 applic topical BID #15 grams 03/31/23 triamcinolone acetonide 0
[2023-04-10 13:30] VITALS: BP 150/86; PULSE 97; RESP 18; TEMP 36.8; O2SAT 95
== END 2023-04-10 13:32 | disposition home or self-care (01) ==
PROVIDERS: Emergency Provider Nurse Practitioner Family; PCP Family Medicine
DX: L01.00 Impetigo, unspecified (principal); E11.9 Type 2 diabetes mellitus without complications; I10 Essential (primary) hypertension; K21.9 Gastro-esophageal reflux disease without esophagitis; E78.5 Hyperlipidemia, unspecified; Z79.84 Long term (current) use of oral hypoglycemic drugs
CPT/HCPCS: 96372; 99212; 99214; G0463; J0696

== ENCOUNTER 2023-07-21 08:28 | Inpatient (IN) | payer BC, SELFPAY ==
[2023-07-21] VITALS (26 sets, daily range): BP systolic 103–180; BP diastolic 53–105; PULSE 65–90; RESP 14–20; TEMP 36.5–36.9; O2SAT 91–99; BMI 33.0; BMI 32.5
--- NOTE | 2023-07-21 08:27 | ECG_ITS ---
APPROVED REPORT Exam: Resting ECG HR:76 bpm ECG Measurements Heart Rate 76 AXES KS 146 P 59 QRSd 85 QRS 68 QT 361 T 61 QTc 392 Conclusion SINUS RHYTHM NORMAL ECG UNCONFIRMED REPORT Electronically signed by : Dewayne Sanchez MD 07/21/2023 21:26:05
--- NOTE | 2023-07-21 08:57 | PC.NURSE ---
Dr. Hollis at [facility] for pt eval
--- NOTE | 2023-07-21 08:58 | XR_ITS ---
FINAL REPORT CLINICAL HISTORY: upper back pain, radiating L shoulder L upper ar COMPARISON: 02/20/2022 FINDINGS: A single portable view of the chest was obtained. The heart size and pulmonary vascularity are within normal limits. The mediastinum is within normal limits. No acute pulmonary abnormality is identified. The bony thorax is intact. IMPRESSION: No active cardiopulmonary disease. Reviewed, Interpreted and Dictated by Fahad Parsons III, MD Transcribed by Kathleen Aponte Authenticated and [facility]
--- NOTE | 2023-07-21 09:01 | CT_ITS ---
FINAL REPORT TECHNIQUE: Then section axial CT images of the chest were obtained with contrast. Three-D reformatted images were also obtained.This study was performed with techniques to keep radiation doses as low as reasonably achievable (ALARA). Individualized dose reduction techniques using automated exposure control or adjustment of mA and/or kV according to the patient''s size were employed. CLINICAL HISTORY: CP rad to back, diaphoretic COMPARISON: 02/20/2022 FINDINGS: There is no evidence of pulmonary embolism. There is no evidence of thoracic aortic aneurysm or dissection. There is no evidence of mediastinal or hilar mass or adenopathy. There is no evidence of pulmonary mass or suspicious nodule. No localized inflammatory process is seen within the lungs. There is a calcified granuloma in the right lung. Limited images of the upper abdomen are unremarkable. Postcholecystectomy. IMPRESSION: 1. No evidence of pulmonary embolism. 2. No mass or localized inflammatory process. Reviewed, Interpreted and Dictated by Fahad Parsons III, MD Transcribed by Kathleen Aponte Authenticated and [facility]
--- NOTE | 2023-07-21 09:02 | HMH.EDGENADL ---
Discharge Plan Disposition Patient Disposition: Admitted Chief Complaint: PAIN Prescriptions Prescriptions: No Action pantoprazole 40 mg tablet,delayed release (DR/EC) 40 mg PO amoxicillin-pot clavulanate 875-125 mg tablet 1 tab PO BID 10 Days Qty: 20 0RF benzonatate 100 mg capsule 100 mg PO BID PRN (Reason: cough) Qty: 20 0RF lovastatin 20 mg tablet 20 mg PO DAILY Patient Comments: TAKE 1 TABLET BY MOUTH EVERY DAY Jardiance 25 mg tablet 25 mg PO DAILYDM Patient Comments: TAKE 1 TABLET BY MOUTH EVERY DAY IN THE MORNING montelukast 10 mg tablet 10 mg PO HS Patient Comments: TAKE 1 TABLET BY MOUTH EVERY DAY dicyclomine 10 mg capsule 10 mg PO TID 5 Days Qty: 15 0RF mupirocin 2 % ointment 1 applic topical BID Qty: 15 0RF triamcinolone acetonide 0.1 % cream 1 applic topical BID Qty: 15 0RF glipizide 10 mg tablet extended release 24hr 10 mg PO DAILY Qty: 90 0RF metformin 1,000 mg tablet 1,000 mg PO BID Qty: 90 0RF aspirin 81 MG tablet,delayed release (DR/EC) 81 mg PO DAILY bupropion HCl 75 MG tablet 75 mg PO BID fluticasone propionate 50 mcg/actuation spray,suspension 1 spray INTRANASAL DAILY Patient Comments: INHALE 1 SPRAY INTO EACH NOSTRIL ONCE DAILY rabeprazole [AcipHex] 20 mg Tablet,Delayed Release (Dr/Ec) 20 mg PO DAILY losartan 100 mg tablet 100 mg PO DAILY dexlansoprazole [Dexilant] 60 mg capsule,biphase delayed releas 60 mg PO DAILY mupirocin 2 % ointment 1 applic topical TID 7 Days Qty: 15 0RF Referrals Follow up/Referrals: Provider,Referral, [Referring] - See instructions Clinical Impressions Clinical Impression: ST elevation UT (STEMI) Discharge ED Provider: Donald Hollis General Adult HPI General Chief complaint: PAIN Stated complaint: chest pain Time Seen by Provider: 07/21/23 08:28 Mode of Arrival: Family Vehicle Source of Information: Patient Limitations: No Limitations Description of Symptoms (Recalled from ER Triage Doc. by RN): Pt c/o upper back pain just left of his spine that radiates up to his L shoulder and down his left arm. He reports the pain to be stabbing and started suddenly and woke him up from sleep. He has a hx of HTN and DM. He does not have any cardiac stents. He c/o nausea and recent GI bug on Tuesday with profuse vomiting. History of Present Illness HPI narrative: RequestPatient is a 58-year-old male with [id number] diabetes who presents emergency department for evaluation of chest pain. It was described as stabbing, waking him from sleep 1 to 2 hours prior to arrival. Radiates back between his shoulder blades and down his left arm for which there is an associated dull ache. This was preceded over the last few days by having nausea and vomiting. No other acute complaints at this time. Related Data Home Medications Medication Instructions Recorded Confirmed aspirin 81 mg tablet,delayed 81 mg PO DAILY heart health 05/23/18 07/04/23 release bupropion HCl 75 mg tablet 75 mg PO BID mood 10/23/18 07/04/23 empagliflozin 25 mg tablet 25 mg PO DAILYDM Diabetes 05/03/22 07/04/23 (Jardiance) lovastatin 20 mg tablet 20 mg PO DAILY Cholesterol 05/03/22 07/04/23 montelukast 10 mg tablet 10 mg PO HS Allergy symptoms 05/03/22 07/04/23 fluticasone propionate 50 1 spray intranasal DAILY Allergy 05/29/22 07/04/23 mcg/actuation nasal symptoms spray,suspension dexlansoprazole 60 mg 60 mg PO DAILY . 07/05/22 07/04/23 capsule,biphase delayed release (Dexilant) losartan 100 mg tablet 100 mg PO DAILY bp 07/05/22 07/04/23 rabeprazole 20 mg tablet,delayed 20 mg PO DAILY . 07/05/22 07/04/23 release (AcipHex) pantoprazole 40 mg tablet,delayed 40 mg PO 07/19/22 07/04/23 release Previous Rx's Medication Instructions Recorded glipizide 10 mg tablet, extended 10 mg PO DAILY Diabetes #90 tabs 06/22/18 release 24 hr
--- NOTE | 2023-07-21 09:03 | PC.NURSE ---
per dr. baird notified rad staff he does not want to wait on labs prior to going to ct
[2023-07-21 09:09] LABS: Basophils % 0.4 % (0.1-2.0); Eosinophils # 0.2 K/mm3 (0.0-0.4); Eosinophils % 3.2 % (0.1-12.0); Hematocrit 51.7 % (42.0-52.0); Hemoglobin 17.5 g/dL (14.1-18.0); Lymphocytes # 2.3 K/mm3 (0.7-4.5); Lymphocytes % 31.3 % (10-50); Mean Corpuscular HGB Conc 33.8 g/dL (31.8-35.4); Mean Corpuscular Hemoglobin 28.9 pg (27.0-31.2); Mean Corpuscular Volume 85.3 fl (80-94); Mean Platelet Volume 7.6 fl (7.4-10.4); Monocytes # 0.6 K/mm3 (0.1-1.0); Monocytes % 8.2 % (1.7-9.3); Neutrophils # 4.1 K/mm3 (1.8-7.8); Platelet Count 245 K/mm3 (142-424); Red Blood Count 6.06 M/mm3 (4.60-6.20); Red Cell Distribution Width 14.2 % (11.5-17.5); White Blood Count 7.2 K/mm3 (4.8-10.8)
[2023-07-21 09:26] LABS: Chloride 104 mmol/L (98-107); Potassium 3.9 mmoL/L (3.5-5.1); Sodium 141 mmol/L (136-145)
[2023-07-21 09:28] LABS: Blood Urea Nitrogen 14 mg/dl (9-20); Creatinine Clearance Estimated 129 mL/min (50-200); Estimated Glomerular Filt Rate 86 ml/min (>60); GFR (African American) 104 ML/MIN (>60)
[2023-07-21 09:29] LABS: Alanine Aminotransferase 36 U/L (12-78); Albumin Level 4.5 g/dl (3.5-5.0); Albumin/Globulin Ratio 1.6 (1.1-1.8); Alkaline Phosphatase 146 U/L (38-126); Anion Gap 11.9 mEq/L (5-15); Aspartate Amino Transferase 32 U/L (17-59); Bilirubin,Total 0.4 mg/dl (0.2-1.3); Calcium 9.1 mg/dl (8.4-10.2); Carbon Dioxide 29 mmol/L (22.0-30.0); Globulin 2.9 g/dL (1.3-3.2); Glucose 182 mg/dl (74-100); Total Protein,Serum 7.4 g/dl (6.3-8.2)
--- NOTE | 2023-07-21 09:32 | PC.NURSE ---
Pt returned to room from RAD
[2023-07-21 09:41] LABS: Troponin I < 0.01 ng/ml (0.00-0.034)
[2023-07-21 09:45] LABS: Coronavirus 19, PCR Not Detected (NotDetected); Influenza A, PCR Not Detected (NotDetected); Influenza B, PCR Not Detected (NotDetected)
--- NOTE | 2023-07-21 10:16 | ECG_ITS ---
APPROVED REPORT Exam: Resting ECG HR:70 bpm ECG Measurements Heart Rate 70 AXES NC 146 P 54 QRSd 90 QRS 59 QT 389 T 64 QTc [address] ELEVATION, CONSIDER INFERIOR INJURY [MARKED ST ELEVATION W/O NORMALLY INFLECTED T-WAVE IN II/aVF] ACUTE MA UNCONFIRMED REPORT Electronically signed by : Dewayne Sanchez MD 07/21/2023 21:25:28
[2023-07-21 10:17] LABS: Lipase 64 U/L (23-300)
--- NOTE | 2023-07-21 10:20 | PC.NURSE ---
@ 1013- E Shreyas EMT made nurse aware of rhythm change on transformer tester. Immediately proceeded to obtain repeat EKG. @ 1016- EKG obtained and presented to Dr. Hollis and let him know it showed acute [place]/Stemi. MD ordered paged Dr. Fletcher and proceeded to room. Pt placed in gown, groin clipped and zoll monitor on pt. Placed new arm band and allergy bracelet to pt's. @ 1018- Dr. Hollis s/w Dr. Fletcher @ 1020- Dr. Hollis back to bedside to s/w pt and spouce. Pt's clothes and shoes placed in belonging bag.
--- NOTE | 2023-07-21 10:24 | PC.NURSE ---
pt to laboratory cureman at this time per mini peng and ,pm via stretcher, on [employer] monitor
--- NOTE | 2023-07-21 10:26 | IR_ITS ---
APPROVED REPORT Patient Location: Emergent [facility] Supervisor: LOUIE Villagomez RT (R) PROCEDURES Selective coronary angiogram Mechanical thrombectomy Drug-eluting stent deployment to the second obtuse marginal artery off the circumflex artery INDICATION Acute inferior ST elevation myocardial infarction, Coronary artery disease Informed consent was obtained prior to the procedure. COMPLICATIONS None Estimated Blood Loss: Less than 10 mls TECHNIQUE One percent lidocaine used to anesthetize the right anterior aspect of the wrist. The right radial artery was accessed via the Seldinger technique. A 6 Sami sheath was placed in the right radial artery. 2.5 mg of Verapamil, 800 mcg of nitroglycerin, 1mg Lidocaine and 5000 U Heparin were given through the arterial sheath. The papa catheter was also used to perform selective coronary angiography. At the end the diagnostic angiogram the guide catheter was placed in the circumflex artery followed by Choice PT extra-support wire down the second obtuse marginal artery which was 100% occluded. Penumbra mechanical aspiration catheter was advanced which partially restored flow. A 2 mm x 15 mm noncompliant balloon was then advanced and used to predilate the stenosis. Following this a 2.5 x 18 mm Franko frontier stent was deployed at 20 thomas reducing the acute occlusion to 0%. JEREMIAS-3 flow was present before and after the procedure. At the end of procedure the apparatus was removed the sheath was removed and hemostasis was achieved using TR banding patient was transferred to postop holding in stable condition ANGIOGRAPHIC RESULTS The left main artery Normal The left anterior descending artery Has proximal 10% stenosis and then bifurcates into a large first diagonal artery which is larger than the mid to distal LAD. The mid LAD then has a 90% concentric stenosis in the mid to distal segment which is 1.75 mm in diameter. The first diagonal artery is a large-caliber vessel and has proximal 50% tandem stenoses with additional mid vessel 40% stenosis The circumflex artery Is nondominant and has proximal 20% stenosis and then gives rise to a large first obtuse marginal artery which has mild 10% disease with an occluded ostial second obtuse marginal artery. Following revascularization the first and second obtuse marginal artery were widely patent with excellent JEREMIAS-3 flow and no angiographic encroachment of the stent upon the first obtuse marginal artery The right coronary artery Is dominant and has diffuse 20 and 30% stenosis The SANTOS ventriculogram reveals Not performed The left ventricular end-diastolic pressure Not measured IMPRESSION Acute ST elevation myocardial infarction involving the second obtuse marginal artery Successful mechanical thrombectomy followed by successful drug-eluting stent deployment to the second obtuse marginal artery, 100% occlusion reduced to 0% with 1 drug-eluting stent Persistent severe stenosis in a small caliber mid to distal LAD Persistent moderate disease in a large proximal to mid diagonal artery PLAN 1. Effient 10 mg daily plus aspirin 81 mg daily 2. Avoidance of tobacco products 3. Medical management for mid LAD stenosis and diagonal artery stenosis at this point. 4. Consider stress test in 6 weeks to determine if diagonal artery and LAD are ischemic 5. LDL less than 55 to be achieved with high intensity statin 6. Aggressive medical management 7. 48 hours of continuous telemetry monitoring due to presence of ST elevation myocardial infarction with patient being at increased risk for sudden cardiac over the next 48 hours Electronically signed by : Abraham Fletcher MD 07/21/2023 14:38:47
--- NOTE | 2023-07-21 10:32 | PC.NURSE ---
notified dr. lynn who is special education science teacher for dr. 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
--- NOTE | 2023-07-21 10:51 | HMH.PHAINT1 ---
Pharmacy Intervention Comments: MEDICATION RECONCILIATION COMPLETED ON PATIENT USING EXTERNAL FILL HISTORY FROM PHARMACY. -SHAUNNA KEANE, ILANAD
--- NOTE | 2023-07-21 13:02 | EXP.CARD.CON ---
History of Present Illness History of Present Illness Consult date: 07/21/23 Requesting physician: Diego Sawyer Consult reason: chest pain Chief complaint: Stemi History of present illness: 58 year old white male with past medical hx of HTN, DM type II, and HLD is admitted to floor after STEMI. Patient reports he awoke with left shoulder pain radiating into jaw and down left arm. When symptoms did not improve decided to come to ER. Initial EKG was without st elevation. Labs essentially unremarkable. Patient had an emergent CTA of chest which was negativ for PE or dissection. Dynamic EKG changes were noticed on monitor prompting repeat EKG which showed stemi. Patient was take from ER to lab aide and received stenting to OM. Please see official cath report below. At this time patient is hemodynamically stable and setting up in bed eating. is at bedside. Denies chest pain or soa. [facility] Disclaimer: The information contained in this section may have been updated after the patient was seen, as this information can be updated by other users. Medical History Allergic rhinitis Bile reflux gastritis Eustachian tube dysfunction Helicobacter pylori (H. pylori) infection HLD (hyperlipidemia) HTN (hypertension) Hyperlipidemia Mesenteric panniculitis Pancreatitis Recurrent serous otitis media Type 2 diabetes mellitus Surgical History History of tonsillectomy Hx laparoscopic cholecystectomy Status post myringotomy with insertion of tube Family History Other No significant family history Social History (Updated 07/21/23 @ 12:00 by Dora Estrada RN) Smoking Status: Never smoker alcohol intake: never substance use type: denies use current occupational status: employed and other Travel in the last 8 weeks: None household members: spouse housing: house caffeine: Yes Review of Systems *Cardiovascular Cardiovascular: Reports chest pain and Reports dyspnea *Respiratory Respiratory: Reports dyspnea Exam Data for Last 24 hours Vital signs and Labs for Last 24 Hours: Temp Pulse Resp BP Pulse Ox O2 Del Method 97.7 F 82 20 138/82 97 Room Air 07/21/23 11:45 07/21/23 12:45 07/21/23 12:45 07/21/23 12:45 07/21/23 12:45 07/21/23 12:45 Laboratory Results - last 24 hr 07/21/23 08:30: WBC 7.2, RBC 6.06, Hgb 17.5, Hct 51.7, MCV 85.3, MCH 28.9, MCHC 33.8, RDW 14.2, Plt Count 245, MPV 7.6, Neut % (Auto) 57.0, Lymph % (Auto) 31.3, [place] % (Auto) 8.2, Eos % (Auto) 3.2, Baso % (Auto) 0.4, Neut # (Auto) 4.1, Lymph # (Auto) 2.3, [place] # (Auto) 0.6, Eos # (Auto) 0.2, Baso # (Auto) 0.0, Sodium 141, Potassium 3.9, Chloride 104, Carbon Dioxide 29, Anion Gap 11.9, BUN 14, Creatinine 0.90, Estimated Creat Clear 129, Estimated GFR 86, Est GFR ( Amer) 104, Glucose 182 H, Calcium 9.1, Total Bilirubin 0.4, AST 32, ALT 36, Alkaline Phosphatase 146 H, Troponin I < 0.01, Total Protein 7.4, Albumin 4.5, Globulin 2.9, Albumin/Globulin Ratio 1.6 07/21/23 09:12: SARS-CoV-2 (PCR) Not detected, Influenza A Untype (PCR) Not detected, Influenza Type B (PCR) Not detected 07/21/23 : Lipase 64 I & O for Last 24 hours: Intake & Output 07/18/23 07/19/23 07/20/23 07/21/23 23:59 23:59 23:59 23:59 Weight 227 lb 1 oz Constitutional Constitutional: no acute distress *Routine Respiratory Exam Respiratory: Present CTA bilaterally and symmetric chest movement *Routine Cardiovascular Exam Cardiovascular: Present RRR, Normal S1 and Normal S2 *Routine Abdominal Exam Abdominal: Present soft and normoactive bowel sounds; Absent tenderness *Routine Extremities Exam Extremities: Present full ROM and normal capillary refill; Absent edema *Routine Skin Exam Skin: Present intact, dry and warm Detailed Neck Exam: Thyroids Thyroid: Absent bruit Meds Home Me
--- NOTE | 2023-07-21 13:03 | CA_ITS ---
APPROVED REPORT EXAM: Comprehensive 2D, Doppler, and color-flow Echocardiogram Screen Printing Stencil Preparer: HUY Bennett, RVS Ht: 5 ft 10 in Wt: 227lbs BSA: 2.20 BP: 159/79 mmHg Indications: STEMI, CP, HTN, DM Echo Enhancing Agent Comments: Limited acoustic windows 2D Dimensions IVSd 1.20 cm LVEF (Visual) 52.20 % PWd 1.63 cm LVDd 4.30 cm LVDs 3.16 cm Aortic Root 3.17 cm Left Atrium 3.31 cm LVOT 2.05 cm (M/F) 1.5-2.5 M-Mode Dimensions LA Diam 4.08 cm (1.9-4.0) Ao Diam 3.39 cm (2.0-3.7) EPSs 0.53 cm TAPSE 2.04 (<1.7) LV Diastology E Decel Time 180.00 (160-240 msec) E/A Ratio 0.99 MED E' 7.30 (< 7 cm/sec) MED A' 12.10 cm/s E'/MED E' Ratio 12.05 (>14) LAT E' 6.50 (<10 cm/sec) LAT A' 9.70 cm/s E/LAT E' Ratio 13.54 (>14) Aortic Valve LVOT Max 77.00 (70-110 cm/s) LVOT VTI 17.12 cm AoV Peak Jon. 119.00 (50-130 cm/s) AO Peak GR. 5.60 mmHg AO Mean GR. 2.90 (<5 mmHg) AO VTI 21.91 (18-25 cm) LAY (VTI) 2.58 (2.5-4.5 cm2) Mitral Valve MV A Velocity 88.00 (40-130 cm/s) E/A Ratio 0.99 MV Decel. Time 180.00 (160-240 ms) Left Ventricle The left ventricle is normal size. The left ventricular systolic function is normal. The left ventricular ejection fraction is within the normal range. There is increased LV wall thickness. There is mild global hypokinesis of the lateral and anterolateral LV levine. The left ventricular diastolic function is normal. LVEF is 55-60%. Right Ventricle The right ventricle is normal size. The right ventricular systolic function is normal. Atria The left atrium size is normal. The right atrium size is normal. There is no Doppler evidence of interatrial shunt. Aortic Valve The aortic valve opens well. There is no aortic valvular stenosis. Trace aortic regurgitation. Mitral Valve The mitral valve is normal in structure. No evidence of mitral valve stenosis. Trace mitral regurgitation. Tricuspid Valve The tricuspid valve leaflets are thin and pliable. Trace tricuspid regurgitation. There is insufficient TR jet to estimate RVSP. Pulmonic Valve The pulmonary valve is normal in structure. Trace pulmonic regurgitation. Great Vessels The aortic root is normal in size. The ascending aorta is normal in size. The IVC is not well visualized. Pericardium There is no pericardial effusion. Other Information Study Quality: Fair Conclusion Normal biventricular systolic function. Mild global hypokinesis of the lateral and anterolateral LV levine. No significant valvular stenosis or regurgitation. Electronically signed by : Halina Mayen MD 07/23/2023 21:14:28
[2023-07-21 13:44] LABS: Troponin I 3.63 ng/ml (0.00-0.034)
[2023-07-21 15:12] LABS: CATHL Activated Clotting Time 295 SEC (74-125)
--- NOTE | 2023-07-21 16:46 | EXP.HP ---
History of Present Illness *Admission Date: 07/21/23 *Reason for visit:: Chest pain *History of present illness: 58 year old white male with past medical hx of HTN, DM type II, and HLD is admitted to floor after STEMI. Patient reports he awoke with left shoulder pain radiating into jaw and down left arm. When symptoms did not improve decided to come to ER. Initial EKG was without st elevation. Labs essentially unremarkable. Patient had an emergent CTA of chest which was negativ for PE or dissection. Dynamic EKG changes were noticed on monitor prompting repeat EKG which showed stemi. Patient was take from ER to labor relations director and received stenting to OM. Please see official cath report below. At this time patient is hemodynamically stable and sitting up in bed eating. is at bedside. Denies chest pain or soa. (above as per cardiology) [facility] Disclaimer: The information contained in this section may have been updated after the patient was seen, as this information can be updated by other users. Medical History Allergic rhinitis Bile reflux gastritis Eustachian tube dysfunction Helicobacter pylori (H. pylori) infection HLD (hyperlipidemia) HTN (hypertension) Hyperlipidemia Mesenteric panniculitis Pancreatitis Recurrent serous otitis media Type 2 diabetes mellitus Surgical History History of tonsillectomy Hx laparoscopic cholecystectomy Status post myringotomy with insertion of tube Family History Diabetes Coronary artery disease Heart attack Cancer Social History (Updated 07/21/23 @ 12:00 by Dora Estrada RN) Smoking Status: Never smoker alcohol intake: never substance use type: denies use current occupational status: employed and other Travel in the last 8 weeks: None household members: spouse housing: house caffeine: Yes Review of Systems Constitutional Constitutional: Denies body ache(s), Denies chills, Reports fatigue, Denies fever(s) and Reports headache(s) Eyes Eyes: Denies blurry vision and Denies diplopia ENT Ears, Nose, Mouth, and Throat: Reports headache(s), Denies nasal congestion, Denies sore throat and Reports vertigo *Cardiovascular Cardiovascular: Reports chest pain, Denies dyspnea and Denies palpitations *Respiratory Respiratory: Denies cough, Denies dyspnea and Denies wheezing *Gastrointestinal Gastrointestinal: Denies abdominal pain, Denies diarrhea, Reports nausea and Reports vomiting *Genitourinary Genitourinary: Denies difficulty urinating and Denies dysuria *Musculoskeletal Musculoskeletal: Reports back pain (between shoulder blades) *Neurologic Neurologic: Reports headache(s) and Reports vertigo Endocrine Endocrine: Reports fatigue and Denies palpitations Allergic/Immunologic Allergic/Immunologic: Denies wheezing Meds Home Medications and Allergies Home Medications Medication Instructions Recorded Confirmed Type aspirin 81 mg tablet,delayed 81 mg PO DAILY heart health 05/23/18 07/21/23 History release bupropion HCl 75 mg tablet 75 mg PO DAILY mood 10/23/18 07/21/23 History empagliflozin 25 mg tablet 25 mg PO DAILY Diabetes 05/03/22 07/21/23 History (Jardiance) lovastatin 20 mg tablet 20 mg PO DAILY Cholesterol 05/03/22 07/21/23 History montelukast 10 mg tablet 10 mg PO HS Allergy symptoms 05/03/22 07/21/23 History fluticasone propionate 50 1 spray intranasal DAILY Allergy 05/29/22 07/21/23 History mcg/actuation nasal symptoms spray,suspension benzonatate 100 mg capsule 100 mg PO BIDP PRN cough 07/21/23 07/21/23 History famotidine 40 mg tablet 40 mg PO DAILY Acid Reflux 07/21/23 07/21/23 History glipizide 10 mg tablet, extended 10 mg PO HS Diabetes 07/21/23 07/21/23 History release 24 hr loratadine-pseudoephedrine ER 10 1 tab PO DAILY allergies 07/21/23 07/21/23 History mg-240 mg tablet,extended
--- NOTE | 2023-07-21 18:14 | PC.NURSE ---
Pt is alert and oriented x4. S/P heart cath with 1 stent placed to the circ. Radial band removed at 1600. Site cleaned and covered with telfa and tegaderm. No hematoma noted. Patient denies any complaint. Family has been at bedside. Bed is locked and in the lowest position, call light within reach.
[2023-07-21 19:27] LABS: Hemoglobin A1C 9.4 % (4.0-6.0)
--- NOTE | 2023-07-21 21:14 | PC.NURSE ---
pt. c/o MARTINEZ, asked for tylenol, notified MD lynn, tylenol 650 q6hr PRN ordered. also changed sliding scale insulin from q6hr to ACHS per orders from MD Lynn
[2023-07-21 21:53] LABS: POC Glucose,Bedside 196 (70-110)
[2023-07-22] VITALS (10 sets, daily range): BP systolic 116–143; BP diastolic 74–94; PULSE 64–90; RESP 16–22; TEMP 36.8–37.2; O2SAT 92–95; BMI 32.3; BMI 32.1
[2023-07-22 05:47] LABS: POC Glucose,Bedside 106 (70-110)
[2023-07-22 06:41] LABS: Basophils % 0.5 % (0.1-2.0); Eosinophils # 0.2 K/mm3 (0.0-0.4); Eosinophils % 2.7 % (0.1-12.0); Lymphocytes % 23.7 % (10-50); Mean Corpuscular Hemoglobin 29.1 pg (27.0-31.2); Mean Corpuscular Volume 85.6 fl (80-94); Mean Platelet Volume 7.6 fl (7.4-10.4); Monocytes # 0.8 K/mm3 (0.1-1.0); Monocytes % 9.2 % (1.7-9.3); Neutrophils # 5.3 K/mm3 (1.8-7.8); Neutrophils % 63.9 % (37.0-80.0); Platelet Count 240 K/mm3 (142-424); Red Blood Count 5.37 M/mm3 (4.60-6.20); Red Cell Distribution Width 14.3 % (11.5-17.5); White Blood Count 8.3 K/mm3 (4.8-10.8)
[2023-07-22 06:47] LABS: Hemoglobin 15.6 g/dL (14.1-18.0)
[2023-07-22 06:51] LABS: Chloride 106 mmol/L (98-107); Potassium 3.5 mmoL/L (3.5-5.1); Sodium 138 mmol/L (136-145)
[2023-07-22 06:54] LABS: Anion Gap 10.5 mEq/L (5-15); Blood Urea Nitrogen 15 mg/dl (9-20); Calcium 8.4 mg/dl (8.4-10.2); Carbon Dioxide 25 mmol/L (22.0-30.0); Creatinine Clearance Estimated 163 mL/min (50-200); Estimated Glomerular Filt Rate 115 ml/min (>60); GFR (African American) 139 ML/MIN (>60); Glucose 114 mg/dl (74-100)
[2023-07-22 07:23] LABS: Chol/HDL Ratio 5.6 (1-3.5); Cholesterol 139 mg/dl (140-200); HDL Cholesterol 25 mg/dl (40-60); Triglycerides 134 mg/dl (30-150); VLDL Cholesterol 27 mg/dL (0-40)
--- NOTE | 2023-07-22 08:46 | EXP.ACUTE.PN ---
Subjective *Date: 07/22/23 *Time: 08:46 Interval history: Patient is feeling better this morning. He denies any chest pain but has had some upper abdominal tightness this morning. He ate breakfast and slept off and on throughout the night. Medical Exam Vital signs and Labs for Last 24 Hours: Vital Signs Temp Pulse Pulse Resp BP BP Pulse Ox 07/22/23 08:00 98.7 F 07/22/23 08:00 83 20 129/76 93 L 07/22/23 08:00 90 07/22/23 04:00 70 07/22/23 06:38 07/22/23 06:00 80 22 128/80 92 L 07/22/23 05:21 07/22/23 04:00 98.2 F 07/22/23 00:00 80 07/22/23 05:00 07/22/23 03:00 07/22/23 04:00 64 19 117/74 94 L 07/22/23 02:00 76 20 128/80 93 L 07/22/23 01:00 07/22/23 00:00 98.3 F 07/21/23 23:00 07/21/23 20:00 80 07/21/23 22:00 78 18 135/80 91 L 07/21/23 20:00 81 20 136/79 92 L 07/21/23 21:00 07/21/23 20:00 98.4 F 07/21/23 19:00 07/21/23 18:14 76 20 130/80 96 07/21/23 16:00 98.3 F 07/21/23 17:15 69 18 125/78 92 L 07/21/23 17:00 07/21/23 16:00 78 07/21/23 12:00 90 07/21/23 16:15 73 16 131/83 93 L 07/21/23 14:15 81 17 129/85 96 07/21/23 15:15 76 18 140/92 H 95 07/21/23 15:00 07/21/23 13:45 77 18 140/86 96 07/21/23 13:15 86 18 146/86 H 99 07/21/23 12:45 82 20 138/82 97 07/21/23 12:15 78 18 133/83 97 07/21/23 12:00 81 18 141/86 H 96 07/21/23 11:45 97.7 F 81 17 137/78 96 07/21/23 12:45 07/21/23 10:24 98.2 F 82 15 129/71 07/21/23 11:00 85 07/21/23 11:30 82 16 155/93 H 98 07/21/23 10:21 82 15 129/75 96 07/21/23 10:15 83 16 95 07/21/23 10:01 67 14 103/53 L 96 07/21/23 11:15 81 16 148/97 H 96 07/21/23 11:10 84 16 144/92 H 95 07/21/23 11:05 83 16 150/90 H 96 07/21/23 11:00 85 18 149/80 H 95 07/21/23 11:00 85 65 18 149/80 H 95 07/21/23 09:35 82 18 159/79 H 97 07/21/23 09:12 78 14 158/82 H 95 O2 Del Method 07/22/23 08:00 07/22/23 08:00 Room Air 07/22/23 08:00 07/22/23 04:00 07/22/23 06:38 Room Air 07/22/23 06:00 Room Air 07/22/23 05:21 Room Air 07/22/23 04:00 07/22/23 00:00 07/22/23 05:00 Room Air 07/22/23 03:00 Room Air 07/22/23 04:00 Room Air 07/22/23 02:00 Room Air 07/22/23 01:00 Room Air 07/22/23 00:00 07/21/23 23:00 Room Air 07/21/23 20:00 07/21/23 22:00 Room Air 07/21/23 20:00 Room Air 07/21/23 21:00 Room Air 07/21/23 20:00 07/21/23 19:00 Room Air 07/21/23 18:14 Room Air 07/21/23 16:00 07/21/23 17:15 Room Air 07/21/23 17:00 Room Air 07/21/23 16:00 07/21/23 12:00 07/21/23 16:15 Room Air 07/21/23 14:15 Room Air 07/21/23 15:15 Room Air 07/21/23 15:00 Room Air 07/21/23 13:45 Room Air 07/21/23 13:15 Room Air 07/21/23 12:45 Room Air 07/21/23 12:15 Room Air 07/21/23 12:00 Room Air 07/21/23 11:45 Room Air 07/21/23 12:45 Room Air 07/21/23 10:24 Room Air 07/21/23 11:00 07/21/23 11:30 Room Air 07/21/23 10:21 Room Air 07/21/23 10:15 07/21/23 10:01 Room Air 07/21/23 11:15 Room Air 07/21/23 11:10 Room Air 07/21/23 11:05 Room Air 07/21/23 11:00 Room Air 07/21/23 11:00 Room Air 07/21/23 09:35 Room Air 07/21/23 09:12 Room Air Intake and Output 07/21/23 07/22/23 07/22/23 19:59 03:59 11:59 Intake Total 720 / 1380 120 / 1380 540 / 1380 Output Total 0 / 200 200 / 200 Balance 720 / 1180 -80 / 1180 540 / 1180 Intake: Intake, Oral Amount 720 / 1380 120 / 1380 540 / 1380 Output: Output, Urine Amount 0 / 200 200 / 200 Other: Number of Unmeasured Voids 1 Weight 226 lb Patient Weight 07/22/23 11:59 Weight 226 lb Laboratory Results - last 24 hr 07/21/23 08:30: WBC 7.2, RBC 6.06, Hgb 17.5, Hct 51.7, MCV 85.3, MCH 28.9, MCHC 33.8
--- NOTE | 2023-07-22 09:56 | EXP.CARD.PN ---
Subjective Subjective Date: 07/22/23 Time: 08:00 Principal diagnosis: stemi Interval history: Patient doing well this morning. Vitals remained stable. Patient denies chest pain or shortness of breath. Morning labs reviewed and stable. Exam Data for Last 24 hours Vital signs and Labs for Last 24 Hours: Temp Pulse Resp BP Pulse Ox O2 Del Method 98.7 F 83 20 129/76 93 L Room Air 07/22/23 08:00 07/22/23 08:00 07/22/23 08:00 07/22/23 08:00 07/22/23 08:00 07/22/23 09:00 Laboratory Results - last 24 hr 07/21/23 09:12: SARS-CoV-2 (PCR) Not detected, Influenza A Untype (PCR) Not detected, Influenza Type B (PCR) Not detected 07/21/23 10:24: Activated Clotting Time 295 H* 07/21/23 12:38: Hemoglobin A1c 9.4 H, Troponin I 3.63 H 07/21/23 21:01: POC Glucose 196 H 07/21/23 : Lipase 64 07/22/23 05:35: WBC 8.3, RBC 5.37, Hgb 15.6 D, Hct 46.0, MCV 85.6, MCH 29.1, MCHC 34.0, RDW 14.3, Plt Count 240, MPV 7.6, Neut % (Auto) 63.9, Lymph % (Auto) 23.7, [place] % (Auto) 9.2, Eos % (Auto) 2.7, Baso % (Auto) 0.5, Neut # (Auto) 5.3, Lymph # (Auto) 2.0, [place] # (Auto) 0.8, Eos # (Auto) 0.2, Baso # (Auto) 0.0, Sodium 138, Potassium 3.5, Chloride 106, Carbon Dioxide 25, Anion Gap 10.5, BUN 15, Creatinine 0.70 D, Estimated Creat Clear 163, Estimated GFR 115, Est GFR ( Amer) 139 D, Glucose 114 H D, Calcium 8.4, Triglycerides 134, Cholesterol 139 L, LDL Cholesterol Direct 98.80 L, VLDL Cholesterol 27, HDL Cholesterol 25 L, Cholesterol/HDL Ratio 5.6 H 07/22/23 05:40: POC Glucose 106 I & O for Last 24 hours: Intake & Output 07/19/23 07/20/23 07/21/23 07/22/23 23:59 23:59 23:59 23:59 Intake Total 720 / 840 660 / 660 Output Total 200 / 200 Balance 520 / 640 660 / 660 Weight 227 lb 1 oz 226 lb Constitutional Constitutional: no acute distress *Routine Respiratory Exam Respiratory: Present CTA bilaterally and symmetric chest movement *Routine Cardiovascular Exam Cardiovascular: Present RRR, Normal S1 and Normal S2 *Routine Abdominal Exam Abdominal: Present soft and normoactive bowel sounds; Absent tenderness *Routine Extremities Exam Extremities: Present full ROM and normal capillary refill; Absent edema *Routine Skin Exam Skin: Present intact, dry and warm Detailed Neck Exam: Thyroids Thyroid: Absent bruit Progress Note: A&P Assessment and plan (1) ST elevation [place] (STEMI): Status: Acute (2) Allergic rhinitis: Problem details: He is currently on Nasonex Status: Chronic (3) Hypertension: Status: Chronic (4) Type 2 diabetes mellitus: Status: Chronic (5) Hyperlipidemia: Status: Chronic Assessment and Plan Assessment and Plan for All Diagnoses:: CAD STEMI -s/p cath with chemical thrombectomy and stenting to second obtuse marginal artery. official read is pending -Echo is pending -Continue DAPT with Effient and aspirin, atorvastatin and Coreg 07/22/2023: Patient reports feeling good this morning. Denies chest pain or shortness of breath. Hyperlipidemia -LDL goal less than 55. Continue statin Hypertension -Well-controlled. Continue losartan 25 mg p.o. daily Diabetes mellitus type 2 -Defer to primary service. Consider addition of Jardiance CV summary 07/21/2023: Cv stable. Needs 48 hour post stemi monitoring. Echo is pending. Patient will need cardiology follow-up in 1 week after discharge. Patient will also need a 6-week stress test to determine if diagonal artery and LAD are ischemic. Cardiac meds Effient 10 mg p.o. daily Aspirin 81 mg p.o. daily Atorvastatin 40 mg p.o. daily Carvedilol 3.125 mg p.o. twice daily Losartan 25 mg p.o. daily mg p.o. daily
[2023-07-22 11:02] LABS: POC Glucose,Bedside 181 (70-110)
--- NOTE | 2023-07-22 11:36 | PC.NURSE ---
courtesy tech note: pt ambulated independently to bathroom and back. An ice water pitcher was given upon request. call light is within reach.
[2023-07-22 16:42] LABS: POC Glucose,Bedside 134 (70-110)
--- NOTE | 2023-07-22 18:03 | PC.NURSE ---
pt has done well this shift, no complaints of chest pain or SOA, has remained on room air, telemetry shows NSR, up to chair some this shift,
[2023-07-22 20:23] LABS: POC Glucose,Bedside 160 (70-110)
[2023-07-23] VITALS: BP 139/70; PULSE 68; PULSE 70; RESP 16; TEMP 36.6; O2SAT 96
[2023-07-23 04:00] VITALS: BP 121/70; PULSE 80; PULSE 81; RESP 16; TEMP 36.6; O2SAT 95; BMI 32.1
[2023-07-23 06:37] LABS: POC Glucose,Bedside 110 (70-110)
--- NOTE | 2023-07-23 06:43 | PC.NURSE ---
Pt has not voiced any c/o to staff t/o shift. States he slept well. NSR on tele. Call light within reach.
--- NOTE | 2023-07-23 07:36 | ECG_ITS ---
APPROVED REPORT Exam: Resting ECG HR:85 bpm ECG Measurements Heart Rate 85 AXES WI 137 P 48 QRSd 84 QRS 35 QT 352 T 12 QTc 394 Conclusion SINUS RHYTHM NONSPECIFIC T-WAVE ABNORMALITY BORDERLINE ECG INTERPRETATION BASED ON A DEFAULT AGE OF 38 YEARS UNCONFIRMED REPORT Electronically signed by : Dewayne Sanchez MD 07/23/2023 18:58:28
[2023-07-23 07:55] VITALS: BP 129/72; PULSE 85; RESP 18; TEMP 37; O2SAT 96
[2023-07-23 08:00] VITALS: PULSE 86
--- NOTE | 2023-07-23 10:13 | EXP.ACUTE.PN ---
Subjective *Date: 07/23/23 *Time: 10:13 Interval history: Stable overnight. Ready for discharge. VS stable. No ectopy. Medications reviewed. Medical Exam Vital signs and Labs for Last 24 Hours: Vital Signs Temp Pulse Pulse Resp BP Pulse Ox O2 Del Method 07/23/23 09:00 Room Air 07/23/23 08:00 86 07/23/23 08:00 Room Air 07/23/23 07:55 98.6 F 85 18 129/72 96 Room Air 07/23/23 06:42 Room Air 07/23/23 04:00 80 07/23/23 05:00 Room Air 07/23/23 03:00 Room Air 07/23/23 04:00 97.8 F 81 16 121/70 95 Room Air 07/23/23 01:00 Room Air 07/23/23 00:00 70 07/23/23 00:00 98 F 68 16 139/70 96 Room Air 07/22/23 23:00 Room Air 07/22/23 20:00 83 07/22/23 21:00 Room Air 07/22/23 20:00 98.2 F 79 17 143/77 H 94 L Room Air 07/22/23 20:00 Room Air 07/22/23 18:50 Room Air 07/22/23 16:00 85 07/22/23 17:00 Room Air 07/22/23 15:00 Room Air 07/22/23 15:52 98.9 F 81 16 116/77 94 L Room Air 07/22/23 12:00 80 07/22/23 13:00 Room Air 07/22/23 12:00 98.4 F 82 20 133/74 95 Room Air 07/22/23 11:00 Room Air Intake and Output 07/22/23 07/23/23 07/23/23 19:59 03:59 11:59 Intake Total 1290 / 1500 210 / 1500 Balance 1290 / 1500 210 / 1500 Intake: Intake, Oral Amount 1290 / 1500 210 / 1500 Other: Number of Unmeasured Voids 3 Weight 224 lb 13.944 oz 224 lb 13.944 oz Patient Weight 07/23/23 11:59 Weight 224 lb 13.944 oz Laboratory Results - last 24 hr 07/22/23 10:55: POC Glucose 181 H 07/22/23 16:31: POC Glucose 134 H 07/22/23 20:14: POC Glucose 160 H 07/23/23 06:25: POC Glucose 110 I & O for Labs for Last 24 Hours: Intake & Output 07/20/23 07/21/23 07/22/23 07/23/23 11:59 11:59 11:59 11:59 Intake Total 1380 / 1380 1500 / 1500 Output Total 200 / 200 Balance 1180 / 1180 1500 / 1500 Weight 227 lb 1 oz 226 lb 224 lb 13.944 oz Head: Present normocephalic ENT: Present normal exam Neck: Present normal inspection Respiratory: Present CTA bilaterally Cardiac: Present Reg Rate and Rhythm (no ectopics) GI: Present soft; Absent tenderness Rectal (male): Present deferred (male): Present deferred Extremities: Present normal inspection; Absent edema Skin: Present intact Neuro: Present alert and oriented x 3 Assessment and Plan *Assessment and plan (1) ST elevation [place] (STEMI): Status: Acute Category: Medical Code(s): I21.3 - ST elevation (STEMI) myocardial infarction of unspecified site (2) Hypertension: Status: Chronic Category: Medical Code(s): I10 - Essential (primary) hypertension (3) Type 2 diabetes mellitus: Status: Chronic Category: Medical Code(s): E11.9 - Type 2 diabetes mellitus without complications (4) Hyperlipidemia: Status: Chronic Qualifiers: Hyperlipidemia type: unspecified Qualified Code(s): E78.5 - Hyperlipidemia, unspecified Category: Medical Code(s): E78.5 - Hyperlipidemia, unspecified (5) Stented coronary artery: Status: Acute Category: Surgical Code(s): Z95.5 - Presence of coronary angioplasty implant and graft Plan Discharge to home. See med list. Follow up in Dr. Barbara Brantley. Appt Cardiology one week.
--- NOTE | 2023-07-25 16:57 | CARE MANAGER ---
Contacted patient related to hospital discharge. He has his new medications and has made his follow up appointments. He denies any questions or concerns. DAHLIA Hatfield
--- NOTE | 2023-07-26 23:06 | EXP.DC.SUM ---
General Admission date:: 07/21/23 Discharge date: 07/23/23 HPI HPI HPI: 58 year old white male with past medical hx of HTN, DM type II, and HLD is admitted to floor after STEMI. Patient reports he awoke with left shoulder pain radiating into jaw and down left arm. When symptoms did not improve decided to come to ER. Initial EKG was without st elevation. Labs essentially unremarkable. Patient had an emergent CTA of chest which was negativ for PE or dissection. Dynamic EKG changes were noticed on monitor prompting repeat EKG which showed stemi. Patient was take from ER to labor and delivery registered nurse and received stenting to OM. Please see official cath report below. At this time patient is hemodynamically stable and sitting up in bed eating. is at bedside. Denies chest pain or soa. (above as per cardiology) Hospital Course Hospital Course Hospital Course: The patient did well post stent placement. He was to take Effient 10 mg daily plus an aspirin 81 mg daily. Cardiology wanted to consider a stress test in 6 weeks to determine if the diagonal artery and LAD were ischemic. Cardiology wanted him to have 48 hours of continuous telemetry due to presence of ST elevation myocardial infarction and the patient being at increased risk for sudden cardiac . He was continued on atorvastatin and Coreg as well as losartan 25 mg daily. By 07/23/2023, the patient was feeling well. Vital signs were stable and he had no ectopy. He was stable to be discharged home and will follow-up with both Dr. Jimenez and cardiology. Exam Data for Last 24 hours Vital signs and Labs for Last 24 Hours: Temp Pulse Resp BP Pulse Ox O2 Del Method 98.6 F 86 18 129/72 96 Room Air 07/23/23 07:55 07/23/23 08:00 07/23/23 07:55 07/23/23 07:55 07/23/23 07:55 07/23/23 09:00 Narrative: Constitutional Constitutional: no acute distress *Routine HEENT Exam Head: Present normocephalic and atraumatic Eye: Present EOMI and PERRL ENT: Present mucous membranes moist *Routine Neck Exam Neck: Present supple and full ROM *Routine Respiratory Exam Respiratory: Present CTA bilaterally *Routine Cardiovascular Exam Cardiovascular: Present RRR *Routine Abdominal Exam Abdominal: Present soft and normoactive bowel sounds; Absent tenderness *Routine Rectal Exam Rectal:: deferred *Routine Genitalia Exam Genitalia:: deferred *Routine Extremities Exam Extremities: Absent cyanosis, clubbing or edema *Routine Skin Exam Skin: Present intact; Absent erythema *Routine Neurological Exam Neurological: Present alert and oriented X3 DS: Diagnosis Discharge Diagnosis (1) ST elevation [place] (STEMI): Status: Acute Code(s): I21.3 - ST elevation (STEMI) myocardial infarction of unspecified site (2) Hypertension: Status: Chronic Code(s): I10 - Essential (primary) hypertension (3) Type 2 diabetes mellitus: Status: Chronic Code(s): E11.9 - Type 2 diabetes mellitus without complications (4) Hyperlipidemia: Status: Chronic Code(s): E78.5 - Hyperlipidemia, unspecified Qualifiers: Hyperlipidemia type: unspecified Qualified Code(s): E78.5 - Hyperlipidemia, unspecified (5) Stented coronary artery: Status: Acute Code(s): Z95.5 - Presence of coronary angioplasty implant and graft Meds Home Medications and Allergies Home Medications Medication Instructions Recorded Confirmed Type aspirin 81 mg tablet,delayed 81 mg PO DAILY heart health 05/23/18 07/21/23 History release bupropion HCl 75 mg tablet 75 mg PO DAILY mood 10/23/18 07/21/23 History empagliflozin 25 mg tablet 25 mg PO DAILY Diabetes 05/03/22 07/21/23 History (Jardiance) montelukast 10 mg tablet 10 mg PO HS Allergy symptoms 05/03/22 07/21/23 History fluticasone propionate 50 1 spray intranasal DAILY Allergy 05/29/22 07/21/23 History mcg/actuation nasal symptoms spray,suspension famotidine 40 mg tablet 40 mg PO DAILY Acid Reflux
== END 2023-07-23 10:38 | disposition home or self-care (01) | DRG 322 ==
LOC: ER 10:26 → CATHLAB 10:54 → 2ND 11:01
PROVIDERS: Internal Medicine; Admitting Provider Family Medicine; Emergency Provider Emergency Medicine; PCP Family Medicine; Visit Provider Family Medicine
PROC: 027034Z Dilation of Coronary Artery, One Artery with Drug-eluting Intraluminal Device, Percutaneous Approach (ICD-10-PCS; principal; 2023-07-21 10:25)
DX: I21.21 ST elevation (STEMI) myocardial infarction involving left circumflex coronary artery (principal); I10 Essential (primary) hypertension; E11.9 Type 2 diabetes mellitus without complications; E78.5 Hyperlipidemia, unspecified; I25.10 Atherosclerotic heart disease of native coronary artery without angina pectoris; I25.82 Chronic total occlusion of coronary artery; Z79.84 Long term (current) use of oral hypoglycemic drugs; Z79.899 Other long term (current) drug therapy
CPT/HCPCS: 36415; 71045; 71275; 80048; 80053; 80061; 82962; 83036; 83690; 84484; 85025; 85347; 87636; 92941; 93005; 93306; 93454; 99152; 99291; C1725; C1769; C1876; C9606; J0131; J1644; Q9967

== ENCOUNTER → 2023-07-28 09:28 | Outpatient (CLI) | payer BC, SELFPAY ==
[2023-07-28 10:21] LABS: Basophils # 0.1 K/mm3 (0-0.2); Basophils % 0.5 % (0.1-2.0); Eosinophils # 0.3 K/mm3 (0.0-0.4); Eosinophils % 3.2 % (0.1-12.0); Hematocrit 48.1 % (42.0-52.0); Hemoglobin 16.5 g/dL (14.1-18.0); Lymphocytes % 21.6 % (10-50); Mean Corpuscular HGB Conc 34.3 g/dL (31.8-35.4); Mean Corpuscular Hemoglobin 28.9 pg (27.0-31.2); Mean Corpuscular Volume 84.3 fl (80-94); Mean Platelet Volume 7.3 fl (7.4-10.4); Monocytes # 0.6 K/mm3 (0.1-1.0); Monocytes % 6.5 % (1.7-9.3); Neutrophils # 6.2 K/mm3 (1.8-7.8); Neutrophils % 68.1 % (37.0-80.0); Platelet Count 317 K/mm3 (142-424); Red Blood Count 5.71 M/mm3 (4.60-6.20); Red Cell Distribution Width 14.3 % (11.5-17.5); White Blood Count 9.1 K/mm3 (4.8-10.8)
[2023-07-28 11:14] LABS: Anion Gap 18.8 mEq/L (5-15); Blood Urea Nitrogen 24 mg/dl (9-20); Calcium 9.8 mg/dl (8.4-10.2); Carbon Dioxide 25 mmol/L (22.0-30.0); Chloride 100 mmol/L (98-107); Estimated Glomerular Filt Rate 99 ml/min (>60); GFR (African American) 119 ML/MIN (>60); Glucose 127 mg/dl (74-100); Potassium 4.8 mmoL/L (3.5-5.1); Sodium 139 mmol/L (136-145)
== END ==
PROVIDERS: PCP Family Medicine; Visit Provider Internal Medicine
DX: E11.9 Type 2 diabetes mellitus without complications (principal); Z79.84 Long term (current) use of oral hypoglycemic drugs
CPT/HCPCS: 36415; 80048; 85025

== ENCOUNTER → 2023-09-08 06:14 | Outpatient (CLI) | payer BC, SELFPAY ==
--- NOTE | 2023-09-08 | CA_ITS ---
APPROVED REPORT Exam: Exercise Treadmill Technologist: Keisha Tim, Ht: 5 ft 10 in Wt: 224 lbs BSA: 2.19 m2 HR: 79 bpm BP: 140/84 mmHg Rhythm: NSR, ST-T abns inferiorly cannot R/O old inferior AL Medical History Medications: Aspirin,,,,, Metformin,,,,, Losartan,,,,, Atorvastatin,,,,, Carvedilol,,,,, Glipizide,,,,, Montelukast,,,,, Famotidine,,,,, JaRDiance,,,,, SilDENAFIL,,,,, Prasugrel,,,,, RaBEPRAZOL,,,,, Cardiac Risk Factors: HTN, Hyperlipidemia, Diabetes (non-insulin) Stress Test Details Test: Manual Treadmill HR Resting HR: 86 bpm Max Heart Rate (APMHR): 160 bpm Max HR Achieved: 159 bpm Target HR (85% APMHR): 136 bpm % of APMHR: 99 Recovery HR: 112 bpm HR response to stress: Normal HR response to stress BP Resting BP: 143.0/81 mmHg Max BP: 200/94 mmHg Recovery BP: 200.0/94.0 mmHg BP response to stress: Abnormal hypertensive response to stress. ECG Resting ECG: NSR, ST-T abns inferiorly, cannot R/O old inferior AL Stress EC mm horizontal ST depression Arrhythmia: PVCs Recovery ECG: Return to baseline within 3 minutes of recovery Recovery Arrhythmia: None Clinical Exercise duration: 05:55 min Highest Stage Achieved: Exercise capacity: 7.0 METs Overall Exercise Capacity for Age: Average Stress ECG Conclusion During Tamia protocol pt walked total of 5:55 on tamia protocol. He achieved a total of 7.0 METS. He has average exercise capacity compared to age and sex matched peers. He has normal HR, but exaggerated BP,response to exercise. Symptoms: No CP noted. Ectopy: Rare PVC, not captured. ST changes: Approx. 1mm slightly upsloping ST depression laterally which normalizes in recovery. Conclusion: Average exercise capacity. Exaggerated BP response to exercise. Equivocal EKG changes for ischemia. Myoview images reported separately. Test Summary REST . . . . . . . Sitting REST . . . . . . . Standing REST 05:53 0.0 0.0 86 . 143/ 81 . . Stage 1 01:00 10.0 1.7 99 . . . . Stage 1 02:00 10.0 1.7 138 . . . . Stage 1 03:00 10.0 1.7 118 . 184/ 82 . . Stage 2 01:00 12.0 2.5 128 . . . . Stage 2 02:00 12.0 2.5 138 . . . . Stage 2 . . . . . . . Protocol changed to Manual Treadmill Stage 2 02:55 12.0 2.0 146 . . . Stop exercise at 05:55 RECOVERY 01:00 0.0 0.0 122 . . . . RECOVERY 02:00 0.0 0.0 111 . 200/ 94 . . RECOVERY 03:00 0.0 0.0 106 . 170/ 80 . . RECOVERY 04:00 0.0 0.0 107 . 175/ 79 . . RECOVERY 05:00 0.0 0.0 102 . 161/ 77 . . RECOVERY 05:17 0.0 0.0 105 . 161/ 77 . . Electronically signed by : Halina Mayen MD 09/11/2023 20:15:20
--- NOTE | 2023-09-08 06:17 | NM_ITS ---
APPROVED REPORT Exam: Nuclear Stress Test Indication: Hx AR..family hx..high cholesterol..diabetes Patient Location: Outpatient Stress Tech: Keisha LOWERY Tech:LOUIE Monroy RT(R)(N) Ht: 5 ft 10 in Wt: 217 lbs HR: 86 bpm BP: 143/81 mmHg BSA: 2.16 m2 TID: 0.95 BMI: 31.1 History: Hx AR..family hx..high cholesterol..diabetes Procedure: Patient exercised on Scott protocol 5:55 minutes and sec, resting heart rate 86 bpm, resting blood pressure 143/81 mmHg, with exercise maximum heart rate achived was 159 bpm which is 99 % of the maximum predicted heart rate and blood pressure was 200/94 mmHg. Test was stopped due to fatigue. Patient denied any complaint of chest pain. Patient has Average exercise capacity, achieved 7.0 METs of workload on treadmill, the blood pressure response to exercise was Exaggerated. Cardiac Stress and Resting SPECT Images: Cardiac Stress and Resting SPECT images were obtained using technetium 99m Myoview 31.0 mCi stress and 10.27 mCi at rest. Raw images demonstrate diaphragmatic overlap with the inferior border of the LV wall. This may affect the diagnostic interpretation of the study findings. Resting and stress imaging in supine and prone positions demonstrate a small sized, moderate, tapered perfusion defect in the basal inferior wall. This is no longer visualized with prone stress imaging. Findings are suggestive of diaphragmatic attenuation. Gated imaging demonstrates normal global and regional LV systolic function. LVEF is calculated at 64%. Conclusion: Diaphragmatic attenuation is present. No definite evidence of fixed or reversible perfusion defects. Gated imaging demonstrates normal global and regional LV systolic function. LVEF is calculated at 64%. Of note, the patient had exaggerated BP response to exercise (SBP up to 200 mmHg). BP control is recommended. Electronically signed by : Halina Mayen MD 09/11/2023 20:18:41
== END ==
PROVIDERS: PCP Family Medicine; Visit Provider Nurse Practitioner
DX: I10 Essential (primary) hypertension (principal); I21.3 ST elevation (STEMI) myocardial infarction of unspecified site; Z95.5 Presence of coronary angioplasty implant and graft
CPT/HCPCS: 78452; 93017; 93018; A9502

== ENCOUNTER → 2023-09-12 09:20 | Outpatient (CLI) | payer BC, SELFPAY ==
[2023-09-12 10:54] LABS: Cholesterol 112 mg/dl (140-200); HDL Cholesterol 28 mg/dl (40-60); Triglycerides 137 mg/dl (30-150); VLDL Cholesterol 27 mg/dL (0-40)
[2023-09-12 11:06] LABS: Direct LDL Cholesterol 72.89 mg/dL (100-129)
== END ==
PROVIDERS: PCP Family Medicine; Visit Provider Physician Assistant
DX: E11.9 Type 2 diabetes mellitus without complications (principal); E78.5 Hyperlipidemia, unspecified; I10 Essential (primary) hypertension; I21.3 ST elevation (STEMI) myocardial infarction of unspecified site; Z95.5 Presence of coronary angioplasty implant and graft; Z79.84 Long term (current) use of oral hypoglycemic drugs
CPT/HCPCS: 36415; 80061

== ENCOUNTER 2023-09-22 17:58 | Emergency (ER) | payer BC, SELFPAY ==
[2023-09-22 18:05] VITALS: BP 161/93; PULSE 86; RESP 20; TEMP 36.7; O2SAT 96; BMI 32.0
--- NOTE | 2023-09-22 18:15 | ED_ITS ---
Discharge Plan Disposition Patient Disposition: Home, Self-Care Condition: Good Prescriptions Prescriptions: New amoxicillin 500 mg capsule 500 mg PO TID 10 Days Qty: 30 0RF ofloxacin 0.3 % drops 10 drp otic (ear) BID 14 Days Qty: 20 0RF Rx Instructions: in left ear as directed No Action ranolazine 500 mg tablet extended release 12 hr 500 mg PO BID Qty: 60 2RF prasugrel 10 mg tablet 10 mg PO DAILY Qty: 30 4RF Jardiance 25 mg tablet 25 mg PO DAILY Patient Comments: TAKE 1 TABLET BY MOUTH EVERY DAY IN THE MORNING montelukast 10 mg tablet 10 mg PO HS Patient Comments: TAKE 1 TABLET BY MOUTH EVERY DAY ezetimibe [Zetia] 10 mg tablet 10 mg PO DAILY Qty: 30 3RF aspirin 81 MG tablet,delayed release (DR/EC) 81 mg PO DAILY bupropion HCl 75 MG tablet 75 mg PO DAILY fluticasone propionate 50 mcg/actuation spray,suspension 1 spray INTRANASAL DAILY Patient Comments: INHALE 1 SPRAY INTO EACH NOSTRIL ONCE DAILY rabeprazole 20 mg tablet,delayed release (DR/EC) 20 mg PO HS Patient Comments: TAKE 1 TABLET BY MOUTH EVERY DAY sildenafil 50 mg tablet 50 mg PO NEEDED PRN (Reason: Erectile Dysfunction) Patient Comments: TAKE 1 TABLET BY MOUTH DIRECTED ondansetron HCl 4 mg tablet 4 mg PO TIDP PRN (Reason: Nausea And Vomiting) famotidine 40 mg tablet 40 mg PO DAILY Patient Comments: TAKE 1 TABLET BY MOUTH EVERY DAY AT BEDTIME losartan 25 mg tablet 25 mg PO DAILY Patient Comments: TAKE 1 TABLET BY MOUTH EVERY DAY metformin 1,000 mg tablet 1,000 mg PO BIDWMEAL Claritin-D 24 Hour 10-240 mg Tablet Extended Release 24 Hr 1 tab PO DAILY glipizide 10 mg tablet extended release 24hr 10 mg PO HS atorvastatin 40 mg Tablet 40 mg PO HS Qty: 30 4RF carvedilol 3.125 mg Tablet 3.125 mg PO BID Qty: 60 4RF Referrals Follow up/Referrals: Kevin Jimenez MD [Primary Care Provider] - See instructions Farida Ferguson APRN [Nurse Practitioner] - 09/27/23 1:00 pm Activity Restrictions/Add. Instructions Additional Instructions/Restrictions: Take medication as prescribed Follow up immediately if bleeding returns or worsens Follow up with ENT as scheduled Straight to ER if any life threatening symptoms Clinical Impressions Clinical Impression: Otitis media of left ear with rupture of tympanic membrane Instructions Patient Instructions: Amoxicillin, Ofloxacin Otic, Ruptured Eardrum Discharge ED Provider: Pippa Woods [facility] [place] H[place] General Stated complaint: ear ache Mode of Arrival: Ambulatory Source of Information: Patient Limitations: No Limitations Time Seen by Provider: 09/22/23 18:19 Description of Symptoms (Recalled from Triage Doc. by RN): PATIENT C/O LEFT EAR PAIN WITH BLEEDING THAT STARTED A FEW DAYS AGO HEENT Symptoms (Recalled from RN notes): Yes Resp Symptoms (Recalled from RN notes): No Skin Symptoms (Recalled from RN notes): No MS Symptoms (Recalled from RN notes): No Functional Status (Recalled from RN notes): WNL History of Present Illness Provider Complaint: Patient states that he has been having pain in his left ear for a couple days States that he noticed he was hearing like a popping noise then had a sharp pain in his ear and shortly after noticed a little blood in his ear canal after he stuck a qtip in there States that tonight it was still hurting him some so he came in Related Data Home Medications Medication Instructions Recorded Confirmed aspirin 81 mg tablet,delayed 81 mg PO DAILY heart health 05/23/18 09/12/23 release bupropion HCl 75 mg tablet 75 mg PO DAILY mood 10/23/18 09/12/23 empagliflozin 25 mg tablet 25 mg PO DAILY Diabetes 05/03/22 09/12/23 (Jardiance) montelukast 10 mg tablet 10 mg PO HS Allergy symptoms 05/03/22 09/12/23 fluticasone propionate 50 1 spray intranasal DAILY Allergy 05/29/22 09/12/23 mcg/actuation nasal symptoms spray,suspension famotidine 40 mg tablet 40 mg PO DAILY Acid Reflux 07/21/23 09/12/23 glipizide 10 mg tablet, extended 10 mg PO HS Diabetes 07/21/23 09/12/23 release 24 hr loratadine-pseudoephedrine ER 10 1 tab PO DAILY allergies 07/21/23 09/12/23 mg-240 mg tablet,extended [id number] (Claritin-D 24 Hour) losartan 25 mg tablet 25 mg PO DAILY High Blood Pressure 07/21/23 09/12/23 metformin 1,000 mg tablet 1,000 mg PO BIDWMEAL Diabetes 07/21/23 09/12/23 ondansetron HCl 4 mg tablet 4 mg PO TIDP PRN Nausea And 07/21/23 09/12/23 Vomiting rabeprazole 20 mg tablet,delayed 20 mg PO HS Acid Reflux 07/21/23 09/12/23 release sildenafil 50 mg tablet 50 mg PO NEEDED PRN Erectile 07/21/23 09/12/23 Dysfunction Previous Rx's Medication Instructions Recorded atorvastatin 40 mg tablet 40 mg PO HS #30 tabs 07/23/23 carvedilol 3.125 mg tablet 3.125 mg PO BID #60 tabs 07/23/23 prasugrel 10 mg tablet 10 mg PO DAILY #30 tabs 07/28/23 ranolazine 500 mg tablet,extended 500 mg PO BID #60 tabs 07/28/23 release,12 hr ezetimibe 10 mg tablet (Zetia) 10 mg PO DAILY #30 tabs 09/13/23 amoxicillin 500 mg capsule 500 mg PO TID 10 days #30 caps 09/22/23 ofloxacin 0.3 % ear drops 10 drp otic (ear) BID 14 days #20 09/22/23 mL Allergies Allergy/AdvReac Type Severity Reaction Status Date / Time metoclopramide [From Reglan] Allergy Severe Chest Pain Verified 09/12/23 08:51 Poultry Allergy Severe Swelling Verified 09/12/23 08:51 of Lip/Tongue/Throat chicken derived Allergy Anaphylaxis Verified 09/12/23 08:51 Worker's Comp Is this a Worker's Comp case?: No [facility] Disclaimer: The information contained in this section may have been updated after the patient was seen, as this information can be updated by other users. Medical History (Updated 09/22/23 @ 18:36 by Pippa Woods, [employer]) Allergic rhinitis Barretts esophagus Bile reflux gastritis Coronary artery disease Eustachian tube dysfunction GERD (gastroesophageal reflux disease) Helicobacter pylori (H. pylori) infection HLD (hyperlipidemia) HTN (hypertension) Hyperlipidemia Mesenteric panniculitis Pancreatitis Recurrent serous otitis media Type 2 diabetes mellitus Surgical History History of tonsillectomy Hx laparoscopic cholecystectomy Status post myringotomy with insertion of tube Stented coronary artery Family History Other Cancer Coronary artery disease Diabetes Heart attack Social History Smoking Status: Never smoker alcohol intake: never substance use type: denies use current occupational status: employed and other Travel in the last 8 weeks: None household members: spouse housing: house caffeine: Yes ROS Obtained: Yes All systems reviewed & no additional complaints except as documented and Yes Systems reviewed as appropriate & no additional complaints except as documented Constitutional Constitutional: Reports system reviewed and no additional complaints, except as documented and Reports as per HPI ENT Ears, Nose, Mouth, and Throat: Reports system reviewed and no additional complaints, except as documented, Reports as per HPI and Reports otalgia Cardiovascular Cardiovascular: Reports system reviewed and no additional complaints, except as documented and Reports as per HPI Respiratory Respiratory: Reports system reviewed and no additional complaints, except as documented and Reports as per HPI Gastrointestinal Gastrointestingal: Reports system reviewed and no additional complaints, except as documented and as per HPI Musculoskeletal Musculoskeletal: Reports system reviewed and no additional complaints, except as documented and Reports as per HPI Physical Exam General General appearance: alert and in no apparent distress Expanded ENT Exam TM/Canal exam: Left TM: erythema (blood noted in canal no active bleeding at this time ) and canal discharge (blood noted in canal) Respiratory Respiratory exam: Present normal lung sounds bilaterally; Absent respiratory distress or wheezes Cardiovascular Cardiovascular exam: Present regular rate, normal rhythm and normal heart sounds Abdominal Exam Abdominal exam: Present soft and normal bowel sounds; Absent distention or tenderness Neurological Exam Neurological exam: Present alert, oriented X3 and normal gait Medical Decision Making Romero Inquiry Pt receiving controlled substance: No Romero was queried for this patient: No Vital Signs: 09/22/23 18:05 Temperature 98.1 F Temperature Source Oral Pulse Rate [Right Brachial] 86 Respiratory Rate 20 Blood Pressure [Right Arm] 161/93 H Blood Pressure Mean [Right Arm] 115 Blood Pressure Source [Right Arm] Automatic Cuff Blood Pressure Position [Right Arm] Sitting 02 Sat by Pulse Oximetry 96 Oxygen Delivery Method Room Air Medical Decision Narrative: Spoke with Chan Ferguson APRN ENT and will prescribe amoxicillin, Ofloxacin and him to follow up with her in the clinic on 09/27/23 at 1PM
[2023-09-22 18:32] VITALS: BP 161/93; PULSE 86; RESP 20; TEMP 36.7; O2SAT 96
== END 2023-09-22 18:43 | disposition home or self-care (01) ==
PROVIDERS: Emergency Provider Nurse Practitioner; PCP Family Medicine
DX: H66.015 Acute suppurative otitis media with spontaneous rupture of ear drum, recurrent, left ear (principal); K21.9 Gastro-esophageal reflux disease without esophagitis; J30.9 Allergic rhinitis, unspecified; E11.9 Type 2 diabetes mellitus without complications; I11.9 Hypertensive heart disease without heart failure; E78.5 Hyperlipidemia, unspecified; Z95.5 Presence of coronary angioplasty implant and graft; Z79.84 Long term (current) use of oral hypoglycemic drugs
CPT/HCPCS: 99212; 99214; G0463

== ENCOUNTER 2023-10-04 10:03 | Outpatient (RCR) | payer BC, SELFPAY | END 2023-12-07 11:00 | disposition home or self-care (01) | LOC: PT 10:03 | PROVIDERS: Visit Provider Physician Assistant | DX: I21.3 ST elevation (STEMI) myocardial infarction of unspecified site (principal); I10 Essential (primary) hypertension; E11.9 Type 2 diabetes mellitus without complications; E78.5 Hyperlipidemia, unspecified; Z95.5 Presence of coronary angioplasty implant and graft; Z79.84 Long term (current) use of oral hypoglycemic drugs | CPT/HCPCS: 93798 ==

== ENCOUNTER 2023-10-25 17:48 | Emergency (ER) | payer BC, SELFPAY ==
[2023-10-25 18:35] VITALS: BP 140/85; PULSE 111; RESP 19; TEMP 36.9; O2SAT 98; BMI 30.8
[2023-10-25 18:43] LABS: UTC Influenza A Antigen Negative (Negative); UTC Influenza B Antigen Positive (Negative)
--- NOTE | 2023-10-25 18:59 | EXP.UTC ---
Discharge Plan Disposition Patient Disposition: Home, Self-Care Condition: Good Prescriptions Prescriptions: New oseltamivir [Tamiflu] 75 mg capsule 75 mg PO Q12H 5 Days Qty: 10 0RF ondansetron 4 mg tablet,disintegrating 4 mg PO Q8H PRN (Reason: nausea and vomiting) Qty: 10 0RF No Action prasugrel 10 mg tablet 10 mg PO DAILY Qty: 30 4RF Jardiance 25 mg tablet 25 mg PO DAILY Patient Comments: TAKE 1 TABLET BY MOUTH EVERY DAY IN THE MORNING montelukast 10 mg tablet 10 mg PO HS Patient Comments: TAKE 1 TABLET BY MOUTH EVERY DAY Ozempic 0.25 mg or 0.5 mg (2 mg/3 mL) pen injector 0.5 mg SQ WEEKLY Patient Comments: INJECT 0.5 MG SUBCUTANEOUSLY ONCE A WEEK diclofenac sodium 1 % gel 4 g topical TID PRN Patient Comments: APPLY 4GM TOPICALLY TO ANKLE AND KNEE 3 TIMES DAILY ezetimibe [Zetia] 10 mg tablet 10 mg PO DAILY Qty: 30 3RF ranolazine 500 mg tablet extended release 12 hr See Rx Instructions .ROUTE .COMPLEX Qty: 180 4RF Dose Instruction: TAKE ONE TABLET BY MOUTH TWICE DAILY Rx Instructions: TAKE ONE TABLET BY MOUTH TWICE DAILY aspirin 81 MG tablet,delayed release (DR/EC) 81 mg PO DAILY bupropion HCl 75 MG tablet 75 mg PO DAILY fluticasone propionate 50 mcg/actuation spray,suspension 1 spray INTRANASAL DAILY Patient Comments: INHALE 1 SPRAY INTO EACH NOSTRIL ONCE DAILY rabeprazole 20 mg tablet,delayed release (DR/EC) 20 mg PO HS Patient Comments: TAKE 1 TABLET BY MOUTH EVERY DAY sildenafil 50 mg tablet 50 mg PO NEEDED PRN (Reason: Erectile Dysfunction) Patient Comments: TAKE 1 TABLET BY MOUTH DIRECTED ondansetron HCl 4 mg tablet 4 mg PO TIDP PRN (Reason: Nausea And Vomiting) famotidine 40 mg tablet 40 mg PO DAILY Patient Comments: TAKE 1 TABLET BY MOUTH EVERY DAY AT BEDTIME losartan 25 mg tablet 25 mg PO DAILY Patient Comments: TAKE 1 TABLET BY MOUTH EVERY DAY metformin 1,000 mg tablet 1,000 mg PO BIDWMEAL Claritin-D 24 Hour 10-240 mg Tablet Extended Release 24 Hr 1 tab PO DAILY glipizide 10 mg tablet extended release 24hr 10 mg PO HS atorvastatin 40 mg Tablet 40 mg PO HS Qty: 30 4RF carvedilol 3.125 mg Tablet 3.125 mg PO BID Qty: 60 4RF amoxicillin 500 mg capsule 500 mg PO TID 10 Days Qty: 30 0RF ofloxacin 0.3 % drops 10 drp otic (ear) BID 14 Days Qty: 20 0RF Rx Instructions: in left ear as directed Referrals Follow up/Referrals: Kevin Jimenez MD [Primary Care Provider] - See instructions Activity Restrictions/Add. Instructions Additional Instructions/Restrictions: Start Tamiflu today if you are going to take it. Discussed risk and possible benefits. Lots of rest Increase Fluids water, Gatorade, powerade, pedialyte,if infant/toddler/child Alternate Tylenol and / or ibuprofen as discussed for fever, aches, chills Follow up IMMEDIATELY with your family doctor for new or worsening Symptoms OR no noticeable improvement over the next 48-72 hours, 911 for difficulty or breathing You or your child area contagious until no fever, aches, chills for 24 hours with medication for symptoms Help Prevent the spread of influenza: ?Wash your hands often. Use soap and water. Wash your hands after you use the bathroom, change a child's diapers, or sneeze. Wash your hands before you prepare or eat food. Use gel hand cleanser that has 60% alcohol, when soap and water are not available. Do not touch your eyes, nose, or mouth unless you have washed your hands first. Cover your mouth when you sneeze or cough. Cough into a tissue or the bend of your arm. If you use a tissue, throw it away immediately and wash your hands. Clean shared items with a germ-killing hand bobbin cleaner. Clean table surfaces, doorknobs, and light switches. Do not share towels, silverware, and dishes with people who are sick. Wash bed sheets, towels, silverware, and dishes with soap and water. Wear a mask over your mouth and nose if you are sick. The face mask may help protect others from becoming infected with the flu. Wear the mask when in common areas of your home or if you seek care with a healthcare provider. Stay away from others if you are sick. Stay at home until 24 hours after your fever and symptoms are gone. Clinical Impressions Clinical Impression: Influenza Stand Alone Forms Stand Alone Forms: Work/School Release Instructions Patient Instructions: DI for Influenza -- Adult, DI for Vomiting -- Adult Discharge ED Provider: Pippa Woods [facility] [place] H[place] General Stated complaint: body aches,vomiting,MARTINEZ Mode of Arrival: Ambulatory Source of Information: Patient Limitations: No Limitations Time Seen by Provider: 10/25/23 18:59 Description of Symptoms (Recalled from Triage Doc. by RN): PATIENT C/O BODY ACHES, CHILLS, AND NAUSEA SINCE LAST NIGHT HEENT Symptoms (Recalled from RN notes): No Resp Symptoms (Recalled from RN notes): No Skin Symptoms (Recalled from RN notes): No MS Symptoms (Recalled from RN notes): No Functional Status (Recalled from RN notes): WNL History of Present Illness Provider Complaint: Patient states that he started feeling bad last night States that he has been feeling achy chills and nausea States that he feels like he may have the flu Related Data Home Medications Medication Instructions Recorded Confirmed aspirin 81 mg tablet,delayed 81 mg PO DAILY heart health 05/23/18 09/27/23 release bupropion HCl 75 mg tablet 75 mg PO DAILY mood 10/23/18 09/27/23 empagliflozin 25 mg tablet 25 mg PO DAILY Diabetes 05/03/22 09/27/23 (Jardiance) montelukast 10 mg tablet 10 mg PO HS Allergy symptoms 05/03/22 09/27/23 fluticasone propionate 50 1 spray intranasal DAILY Allergy 05/29/22 09/27/23 mcg/actuation nasal symptoms spray,suspension famotidine 40 mg tablet 40 mg PO DAILY Acid Reflux 07/21/23 09/27/23 glipizide 10 mg tablet, extended 10 mg PO HS Diabetes 07/21/23 09/27/23 release 24 hr loratadine-pseudoephedrine ER 10 1 tab PO DAILY allergies 07/21/23 09/27/23 mg-240 mg tablet,extended [id number] (Claritin-D 24 Hour) losartan 25 mg tablet 25 mg PO DAILY High Blood Pressure 07/21/23 09/27/23 metformin 1,000 mg tablet 1,000 mg PO BIDWMEAL Diabetes 07/21/23 09/27/23 ondansetron HCl 4 mg tablet 4 mg PO TIDP PRN Nausea And 07/21/23 09/27/23 Vomiting rabeprazole 20 mg tablet,delayed 20 mg PO HS Acid Reflux 07/21/23 09/27/23 release sildenafil 50 mg tablet 50 mg PO NEEDED PRN Erectile 07/21/23 09/27/23 Dysfunction diclofenac sodium 1 % topical gel 4 g topical TID PRN 09/27/23 09/27/23 semaglutide 0.25 mg or 0.5 mg (2 0.5 mg SQ WEEKLY 09/27/23 09/27/23 mg/3 mL) subcutaneous pen injector (Ozempic) Previous Rx's Medication Instructions Recorded atorvastatin 40 mg tablet 40 mg PO HS #30 tabs 07/23/23 carvedilol 3.125 mg tablet 3.125 mg PO BID #60 tabs 07/23/23 prasugrel 10 mg tablet 10 mg PO DAILY #30 tabs 07/28/23 ezetimibe 10 mg tablet (Zetia) 10 mg PO DAILY #30 tabs 09/13/23 amoxicillin 500 mg capsule 500 mg PO TID 10 days #30 caps 09/22/23 ofloxacin 0.3 % ear drops 10 drp otic (ear) BID 14 days #20 09/22/23 mL ranolazine 500 mg tablet,extended See Rx Instructions .Route 10/24/23 release,12 hr .COMPLEX #180 tabs ondansetron 4 mg disintegrating 4 mg PO Q8H PRN nausea and 10/25/23 tablet vomiting #10 tabs oseltamivir 75 mg capsule (Tamiflu) 75 mg PO Q12H 5 days #10 caps 10/25/23 Allergies Allergy/AdvReac Type Severity Reaction Status Date / Time metoclopramide [From Reglan] Allergy Severe Chest Pain Verified 09/27/23 12:56 Poultry Allergy Severe Swelling Verified 09/27/23 12:56 of Lip/Tongue/Throat chicken derived Allergy Anaphylaxis Verified 09/27/23 12:56 Worker's Comp Is this a Worker's Comp case?: No [facility] Disclaimer: The information contained in this section may have been updated after the patient was seen, as this information can be updated by other users. Medical History (Updated 10/25/23 @ 19:10 by Pippa Woods APRN) Allergic rhinitis Barretts esophagus Bile reflux gastritis Coronary artery disease Eustachian tube dysfunction Foreign body in left ear GERD (gastroesophageal reflux disease) Helicobacter pylori (H. pylori) infection HLD (hyperlipidemia) HTN (hypertension) Hyperlipidemia Mesenteric panniculitis Pancreatitis Recurrent serous otitis media Type 2 diabetes mellitus Surgical History History of tonsillectomy Hx laparoscopic cholecystectomy Status post myringotomy with insertion of tube Stented coronary artery Family History Other Cancer Coronary artery disease Diabetes Heart attack Social History Smoking Status: Never smoker alcohol intake: never substance use type: denies use current occupational status: employed and other Travel in the last 8 weeks: None household members: spouse housing: house caffeine: Yes ROS Obtained: Yes All systems reviewed & no additional complaints except as documented and Yes Systems reviewed as appropriate & no additional complaints except as documented Constitutional Constitutional: Reports system reviewed and no additional complaints, except as documented, Reports as per HPI, Reports body ache and Reports chills ENT Ears, Nose, Mouth, and Throat: Reports system reviewed and no additional complaints, except as documented, Reports as per HPI and Reports nasal congestion Cardiovascular Cardiovascular: Reports system reviewed and no additional complaints, except as documented and Reports as per HPI Respiratory Respiratory: Reports system reviewed and no additional complaints, except as documented and Reports as per HPI Gastrointestinal Gastrointestingal: Reports system reviewed and no additional complaints, except as documented, as per HPI, nausea and vomiting Physical Exam General General appearance: alert and in no apparent distress ENT ENT exam: Present mucous membranes moist Respiratory Respiratory exam: Present normal lung sounds bilaterally; Absent respiratory distress or wheezes Cardiovascular Cardiovascular exam: Present regular rate, normal rhythm and tachycardia Abdominal Exam Abdominal exam: Present soft and normal bowel sounds; Absent distention or tenderness Neurological Exam Neurological exam: Present alert, oriented X3 and normal gait Medical Decision Making Romero Inquiry Pt receiving controlled substance: No Romero was queried for this patient: No Vital Signs: 10/25/23 18:35 Temperature 98.5 F Temperature Source Oral Pulse Rate [Left Brachial] 111 H Respiratory Rate 19 Blood Pressure [Left Arm] 140/85 Blood Pressure Mean [Left Arm] 103 Blood Pressure Source [Left Arm] Automatic Cuff Blood Pressure Position [Left Arm] Sitting 02 Sat by Pulse Oximetry 98 Oxygen Delivery Method Room Air Lab Data Lab results reviewed: Yes I reviewed the patient's lab results. Lab Results 10/25/23 18:36: Influenza Type A Ag Negative, Influenza Type B Ag Positive A Medical Decision Narrative: patient states that he has taken zofran in the past without complications or reactions
[2023-10-25 19:11] VITALS: BP 140/85; PULSE 111; RESP 19; TEMP 36.9; O2SAT 98
== END 2023-10-25 19:16 | disposition home or self-care (01) ==
PROVIDERS: Emergency Provider Nurse Practitioner; PCP Family Medicine
DX: J10.1 Influenza due to other identified influenza virus with other respiratory manifestations (principal); R51.9 Headache, unspecified; R11.2 Nausea with vomiting, unspecified; R09.81 Nasal congestion; M79.18 Myalgia, other site; K21.9 Gastro-esophageal reflux disease without esophagitis; E11.9 Type 2 diabetes mellitus without complications; E78.5 Hyperlipidemia, unspecified; I11.9 Hypertensive heart disease without heart failure; I25.10 Atherosclerotic heart disease of native coronary artery without angina pectoris; Z95.5 Presence of coronary angioplasty implant and graft
CPT/HCPCS: 87804; 99212; 99214; G0463

== ENCOUNTER 2023-10-30 10:48 | Emergency (ER) | payer BC, SELFPAY ==
[2023-10-30 10:55] VITALS: BP 150/79; PULSE 85; RESP 22; TEMP 36.6; O2SAT 97; BMI 30.1
--- NOTE | 2023-10-30 11:06 | EXP.UTC ---
Discharge Plan Disposition Patient Disposition: Home, Self-Care Condition: Good Prescriptions Prescriptions: New amoxicillin-pot clavulanate 875-125 mg Tablet 1 tab PO Q12H 7 Days Qty: 14 0RF No Action prasugrel 10 mg tablet 10 mg PO DAILY Qty: 30 4RF Jardiance 25 mg tablet 25 mg PO DAILY Patient Comments: TAKE 1 TABLET BY MOUTH EVERY DAY IN THE MORNING montelukast 10 mg tablet 10 mg PO HS Patient Comments: TAKE 1 TABLET BY MOUTH EVERY DAY Ozempic 0.25 mg or 0.5 mg (2 mg/3 mL) pen injector 0.5 mg SQ WEEKLY Patient Comments: INJECT 0.5 MG SUBCUTANEOUSLY ONCE A WEEK diclofenac sodium 1 % gel 4 g topical TID PRN Patient Comments: APPLY 4GM TOPICALLY TO ANKLE AND KNEE 3 TIMES DAILY ezetimibe [Zetia] 10 mg tablet 10 mg PO DAILY Qty: 30 3RF ranolazine 500 mg tablet extended release 12 hr See Rx Instructions .ROUTE .COMPLEX Qty: 180 4RF Dose Instruction: TAKE ONE TABLET BY MOUTH TWICE DAILY Rx Instructions: TAKE ONE TABLET BY MOUTH TWICE DAILY aspirin 81 MG tablet,delayed release (DR/EC) 81 mg PO DAILY bupropion HCl 75 MG tablet 75 mg PO DAILY fluticasone propionate 50 mcg/actuation spray,suspension 1 spray INTRANASAL DAILY Patient Comments: INHALE 1 SPRAY INTO EACH NOSTRIL ONCE DAILY rabeprazole 20 mg tablet,delayed release (DR/EC) 20 mg PO HS Patient Comments: TAKE 1 TABLET BY MOUTH EVERY DAY sildenafil 50 mg tablet 50 mg PO NEEDED PRN (Reason: Erectile Dysfunction) Patient Comments: TAKE 1 TABLET BY MOUTH DIRECTED ondansetron HCl 4 mg tablet 4 mg PO TIDP PRN (Reason: Nausea And Vomiting) famotidine 40 mg tablet 40 mg PO DAILY Patient Comments: TAKE 1 TABLET BY MOUTH EVERY DAY AT BEDTIME losartan 25 mg tablet 25 mg PO DAILY Patient Comments: TAKE 1 TABLET BY MOUTH EVERY DAY metformin 1,000 mg tablet 1,000 mg PO BIDWMEAL Claritin-D 24 Hour 10-240 mg Tablet Extended Release 24 Hr 1 tab PO DAILY glipizide 10 mg tablet extended release 24hr 10 mg PO HS atorvastatin 40 mg Tablet 40 mg PO HS Qty: 30 4RF carvedilol 3.125 mg Tablet 3.125 mg PO BID Qty: 60 4RF amoxicillin 500 mg capsule 500 mg PO TID 10 Days Qty: 30 0RF ofloxacin 0.3 % drops 10 drp otic (ear) BID 14 Days Qty: 20 0RF Rx Instructions: in left ear as directed oseltamivir [Tamiflu] 75 mg capsule 75 mg PO Q12H 5 Days Qty: 10 0RF ondansetron 4 mg tablet,disintegrating 4 mg PO Q8H PRN (Reason: nausea and vomiting) Qty: 10 0RF Referrals Follow up/Referrals: Kevin Jimenez MD [Primary Care Provider] - See instructions Activity Restrictions/Add. Instructions Additional Instructions/Restrictions: Continue taking the Benzonatate for cough Over the Coricedin HBP cold and flu may help with your Nasal congestion speak with the pharmacy before taking to make sure it is safe with your other medications Follow up with your Family Doctor if no improvement or any worsening of symptoms Straight to ER if any life threatening symptoms Clinical Impressions Clinical Impression: Sinusitis Qualifiers: Sinusitis location: unspecified location Chronicity: unspecified Qualified Code(s): J32.9 - Chronic sinusitis, unspecified Instructions Patient Instructions: DI for Sinusitis, Sinusitis Discharge ED Provider: Pippa Woods [facility] General Stated complaint: congestion, headache Mode of Arrival: Ambulatory Source of Information: Patient Limitations: No Limitations Time Seen by Provider: 10/30/23 11:06 Description of Symptoms (Recalled from Triage Doc. by RN): PATIENT C/O CONGESTION, SINUS PRESSURE, COUGH AND HOARSENESS SINCE TUESDAY. HEENT Symptoms (Recalled from RN notes): Yes Resp Symptoms (Recalled from RN notes): Yes Skin Symptoms (Recalled from RN notes): No MS Symptoms (Recalled from RN notes): No Functional Status (Recalled from RN notes): WNL History of Present Illness Provider Complaint: Patient states that he had flu last week and feels like it has settled in his sinuses and trying to move into his chest States that he has been having sinus pain and pressure with pressure in his ears and feels like it is starting to move into his chest feels like he has rattling at times in his chest States today the pressure behind his eyes was worse so he came in to get something to help Related Data Home Medications Medication Instructions Recorded Confirmed aspirin 81 mg tablet,delayed 81 mg PO DAILY heart [facility] 05/23/18 09/27/23 release bupropion HCl 75 mg tablet 75 mg PO DAILY mood 10/23/18 09/27/23 empagliflozin 25 mg tablet 25 mg PO DAILY Diabetes 05/03/22 09/27/23 (Jardiance) montelukast 10 mg tablet 10 mg PO HS Allergy symptoms 05/03/22 09/27/23 fluticasone propionate 50 1 spray intranasal DAILY Allergy 05/29/22 09/27/23 mcg/actuation nasal symptoms spray,suspension famotidine 40 mg tablet 40 mg PO DAILY Acid Reflux 07/21/23 09/27/23 glipizide 10 mg tablet, extended 10 mg PO HS Diabetes 07/21/23 09/27/23 release 24 hr loratadine-pseudoephedrine ER 10 1 tab PO DAILY allergies 07/21/23 09/27/23 mg-240 mg tablet,extended [id number] (Claritin-D 24 Hour) losartan 25 mg tablet 25 mg PO DAILY High Blood Pressure 07/21/23 09/27/23 metformin 1,000 mg tablet 1,000 mg PO BIDWMEAL Diabetes 07/21/23 09/27/23 ondansetron HCl 4 mg tablet 4 mg PO TIDP PRN Nausea And 07/21/23 09/27/23 Vomiting rabeprazole 20 mg tablet,delayed 20 mg PO HS Acid Reflux 07/21/23 09/27/23 release sildenafil 50 mg tablet 50 mg PO NEEDED PRN Erectile 07/21/23 09/27/23 Dysfunction diclofenac sodium 1 % topical gel 4 g topical TID PRN 09/27/23 09/27/23 semaglutide 0.25 mg or 0.5 mg (2 0.5 mg SQ WEEKLY 09/27/23 09/27/23 mg/3 mL) subcutaneous pen injector ([employer]) Previous Rx's Medication Instructions Recorded atorvastatin 40 mg tablet 40 mg PO HS #30 tabs 07/23/23 carvedilol 3.125 mg tablet 3.125 mg PO BID #60 tabs 07/23/23 prasugrel 10 mg tablet 10 mg PO DAILY #30 tabs 07/28/23 ezetimibe 10 mg tablet (Zetia) 10 mg PO DAILY #30 tabs 09/13/23 amoxicillin 500 mg capsule 500 mg PO TID 10 days #30 caps 09/22/23 ofloxacin 0.3 % ear drops 10 drp otic (ear) BID 14 days #20 09/22/23 mL ranolazine 500 mg tablet,extended See Rx Instructions .Route 10/24/23 release,12 hr .COMPLEX #180 tabs ondansetron 4 mg disintegrating 4 mg PO Q8H PRN nausea and 10/25/23 tablet vomiting #10 tabs oseltamivir 75 mg capsule (Tamiflu) 75 mg PO Q12H 5 days #10 caps 10/25/23 amoxicillin 875 mg-potassium 1 tab PO Q12H 7 days #14 tabs 10/30/23 clavulanate 125 mg tablet Allergies Allergy/AdvReac Type Severity Reaction Status Date / Time metoclopramide [From Reglan] Allergy Severe Chest Pain Verified 09/27/23 12:56 Poultry Allergy Severe Swelling Verified 09/27/23 12:56 of Lip/Tongue/Throat chicken derived Allergy Anaphylaxis Verified 09/27/23 12:56 Worker's Comp Is this a Worker's Comp case?: No [facility] Disclaimer: The information contained in this section may have been updated after the patient was seen, as this information can be updated by other users. Medical History (Updated 10/30/23 @ 11:21 by Pippa Woods APRN) Allergic rhinitis Barretts esophagus Bile reflux gastritis Coronary artery disease Eustachian tube dysfunction Foreign body in left ear GERD (gastroesophageal reflux disease) Helicobacter pylori (H. pylori) infection HLD (hyperlipidemia) HTN (hypertension) Hyperlipidemia Mesenteric panniculitis Pancreatitis Recurrent serous otitis media Type 2 diabetes mellitus Surgical History History of tonsillectomy Hx laparoscopic cholecystectomy Status post myringotomy with insertion of tube Stented coronary artery Family History Other Cancer Coronary artery disease Diabetes Heart attack Social History Smoking Status: Never smoker alcohol intake: never substance use type: denies use current occupational status: employed and other Travel in the last 8 weeks: None household members: spouse housing: house caffeine: Yes ROS Obtained: Yes All systems reviewed & no additional complaints except as documented and Yes Systems reviewed as appropriate & no additional complaints except as documented Constitutional Constitutional: Reports system reviewed and no additional complaints, except as documented, Reports as per HPI and Reports headache(s) ENT Ears, Nose, Mouth, and Throat: Reports system reviewed and no additional complaints, except as documented, Reports as per HPI, Reports headache(s), Reports sinus pain and Reports sinus pressure Cardiovascular Cardiovascular: Reports system reviewed and no additional complaints, except as documented and Reports as per HPI Respiratory Respiratory: Reports system reviewed and no additional complaints, except as documented, Reports as per HPI, Denies shortness of breath, Reports chest congestion and Reports cough Gastrointestinal Gastrointestingal: Reports system reviewed and no additional complaints, except as documented and as per HPI Neurologic Neurologic: Reports headache(s) Physical Exam General General appearance: alert and in no apparent distress ENT ENT exam: Present mucous membranes moist Expanded ENT Exam Nose exam: Present sinus tenderness Throat exam: Present other (Pharyngeal erythema noted with PND) Respiratory Respiratory exam: Present normal lung sounds bilaterally; Absent respiratory distress or wheezes Cardiovascular Cardiovascular exam: Present regular rate, normal rhythm and normal heart sounds Neurological Exam Neurological exam: Present alert, oriented X3 and normal gait Medical Decision Making Romero Inquiry Pt receiving controlled substance: No Romero was queried for this patient: No Vital Signs: 10/30/23 10:55 Temperature 97.8 F Temperature Source Oral Pulse Rate [Left Brachial] 85 Respiratory Rate 22 Blood Pressure [Left Arm] 150/79 H Blood Pressure Mean [Left Arm] 102 Blood Pressure Source [Left Arm] Automatic Cuff Blood Pressure Position [Left Arm] Sitting 02 Sat by Pulse Oximetry 97 Oxygen Delivery Method Room Air Lab Data Lab results reviewed: Yes I reviewed the patient's lab results.
[2023-10-30 11:22] VITALS: BP 150/79; PULSE 85; RESP 22; TEMP 36.6; O2SAT 97
== END 2023-10-30 11:23 | disposition home or self-care (01) ==
PROVIDERS: Emergency Provider Nurse Practitioner; PCP Family Medicine
DX: J01.90 Acute sinusitis, unspecified (principal); R51.9 Headache, unspecified; R09.81 Nasal congestion; H92.03 Otalgia, bilateral; R05.9 Cough, unspecified; I11.9 Hypertensive heart disease without heart failure; I25.10 Atherosclerotic heart disease of native coronary artery without angina pectoris; E78.5 Hyperlipidemia, unspecified; K21.9 Gastro-esophageal reflux disease without esophagitis; E11.9 Type 2 diabetes mellitus without complications; Z95.5 Presence of coronary angioplasty implant and graft; Z79.84 Long term (current) use of oral hypoglycemic drugs; Z79.85 Long-term (current) use of injectable non-insulin antidiabetic drugs
CPT/HCPCS: 99212; 99214; G0463

== ENCOUNTER 2024-01-01 07:17 | Emergency (ER) | payer BC, SELFPAY ==
[2024-01-01 07:26] VITALS: BP 162/97; PULSE 97; RESP 18; TEMP 36.6; O2SAT 98; BMI 29.5
--- NOTE | 2024-01-01 07:27 | PC.NURSE ---
Dr. Hollis at [facility] for pt eval
--- NOTE | 2024-01-01 07:32 | CT_ITS ---
PROCEDURE INFORMATION: Exam: CT Maxillofacial With Contrast Exam date and time: 01/01/2024 8:21 AM Age: 58 years old Clinical indication: Jaw pain; Additional info: R mandibular molar pain and buccal mucosa swell TECHNIQUE: Imaging protocol: Computed tomography of the face with contrast. Radiation optimization: All CT scans at this facility use at least one of these dose optimization techniques: automated exposure control; mA and/or kV adjustment per patient size (includes targeted exams where dose is matched to clinical indication); or iterative reconstruction. Contrast material: ISOVUE; Contrast volume: 100 ml; Contrast route: IV; COMPARISON: No relevant prior studies available. FINDINGS: Orbital cavities: Orbits are normal. Globes are unremarkable. Bones/joints: 2.3 x 1.5x 3.3 cm complex collection along the right mandible (series 3, image [id number]. Coronal series 1001 image 58). This likely represents abscess or complex phlegmon as it does contain debris.. Paranasal sinuses: Opacity in the left maxillary sinus may represent sinusitis Soft tissues: Unremarkable. IMPRESSION: 2.3 x 1.5x 3.3 cm complex collection along the right mandible (series 3, image [id number]. Coronal series 1001 image 58). This likely represents abscess or complex phlegmon as it does contain debris..
--- NOTE | 2024-01-01 07:34 | HMH.EDGENADL ---
Discharge Plan Disposition Patient Disposition: Xfer Short-Term Hosp Chief Complaint: Dental/Oral Prescriptions Prescriptions: No Action prasugrel 10 mg tablet 10 mg PO DAILY Qty: 30 4RF Jardiance 25 mg tablet 25 mg PO DAILY Patient Comments: TAKE 1 TABLET BY MOUTH EVERY DAY IN THE MORNING montelukast 10 mg tablet 10 mg PO HS Patient Comments: TAKE 1 TABLET BY MOUTH EVERY DAY Ozempic 0.25 mg or 0.5 mg (2 mg/3 mL) pen injector 0.5 mg SQ WEEKLY Patient Comments: INJECT 0.5 MG SUBCUTANEOUSLY ONCE A WEEK diclofenac sodium 1 % gel 4 g topical TID PRN Patient Comments: APPLY 4GM TOPICALLY TO ANKLE AND KNEE 3 TIMES DAILY ezetimibe [Zetia] 10 mg tablet 10 mg PO DAILY Qty: 30 3RF ranolazine 500 mg tablet extended release 12 hr See Rx Instructions .ROUTE .COMPLEX Qty: 180 4RF Dose Instruction: TAKE ONE TABLET BY MOUTH TWICE DAILY Rx Instructions: TAKE ONE TABLET BY MOUTH TWICE DAILY aspirin 81 MG tablet,delayed release (DR/EC) 81 mg PO DAILY bupropion HCl 75 MG tablet 75 mg PO DAILY fluticasone propionate 50 mcg/actuation spray,suspension 1 spray INTRANASAL DAILY Patient Comments: INHALE 1 SPRAY INTO EACH NOSTRIL ONCE DAILY rabeprazole 20 mg tablet,delayed release (DR/EC) 20 mg PO HS Patient Comments: TAKE 1 TABLET BY MOUTH EVERY DAY sildenafil 50 mg tablet 50 mg PO NEEDED PRN (Reason: Erectile Dysfunction) Patient Comments: TAKE 1 TABLET BY MOUTH DIRECTED famotidine 40 mg tablet 40 mg PO DAILY Patient Comments: TAKE 1 TABLET BY MOUTH EVERY DAY AT BEDTIME losartan 25 mg tablet 25 mg PO DAILY Patient Comments: TAKE 1 TABLET BY MOUTH EVERY DAY metformin 1,000 mg tablet 1,000 mg PO BIDWMEAL Claritin-D 24 Hour 10-240 mg Tablet Extended Release 24 Hr 1 tab PO DAILY glipizide 10 mg tablet extended release 24hr 10 mg PO HS atorvastatin 40 mg Tablet 40 mg PO HS Qty: 30 4RF carvedilol 3.125 mg Tablet 3.125 mg PO BID Qty: 60 4RF ondansetron 4 mg tablet,disintegrating 4 mg PO Q8H PRN (Reason: nausea and vomiting) Qty: 10 0RF Referrals Follow up/Referrals: Kevin Jimenez MD [Primary Care Provider] - See instructions Activity Restrictions/Add. Instructions Additional Instructions/Restrictions: Please present immediately to [facility], they are expecting you for continued evaluation. Clinical Impressions Clinical Impression: Mandibular abscess Discharge ED Provider: Donald Hollis General Adult HPI General Chief complaint: Dental/Oral Stated complaint: abcess tooth lower right jaw Time Seen by Provider: 01/01/24 07:32 Mode of Arrival: Ambulatory Source of Information: Patient Limitations: No Limitations Description of Symptoms (Recalled from ER Triage Doc. by RN): r sided facial swelling and tooth pain. History of Present Illness HPI narrative: Patient is a 58-year-old male with hypertension, hyperlipidemia, dental caries who presents emergency department for evaluation of tooth pain. Patient has been dealing with his right mandibular wisdom tooth for about a month which has had evidence of significant decay at his dentist appointment. At 2:30 AM he awoke with sharp lancinating pain in his right jaw that radiated up to his right ear. Due to persistent symptoms he presents here for continued evaluation. Related Data Home Medications Medication Instructions Recorded Confirmed aspirin 81 mg tablet,delayed 81 mg PO DAILY heart health 05/23/18 11/15/23 release bupropion HCl 75 mg tablet 75 mg PO DAILY mood 10/23/18 11/15/23 empagliflozin 25 mg tablet 25 mg PO DAILY Diabetes 05/03/22 11/15/23 (Jardiance) montelukast 10 mg tablet 10 mg PO HS Allergy symptoms 05/03/22 11/15/23 fluticasone propionate 50 1 spray intranasal DAILY Allergy 05/29/22 11/15/23 mcg/actuation nasal symptoms spray,suspension famotidine 40 mg tablet 40 mg PO DAILY Acid Reflux 07/21/23 11/15/23 glipizide 10 mg tablet, extended 10 mg PO HS Diabetes 07/21/23 11/15/23 release 24 hr loratadine-pseudoephedrine ER 10 1 tab PO DAILY allergies 07/21/23 11/15/23 mg-240 mg tablet,extended [id number] (Claritin-D 24 Hour) losartan 25 mg tablet 25 mg PO DAILY High Blood Pressure 07/21/23 11/15/23 metformin 1,000 mg tablet 1,000 mg PO BIDWMEAL Diabetes 07/21/23 11/15/23 rabeprazole 20 mg tablet,delayed 20 mg PO HS Acid Reflux 07/21/23 11/15/23 release sildenafil 50 mg tablet 50 mg PO NEEDED PRN Erectile 07/21/23 11/15/23 Dysfunction diclofenac sodium 1 % topical gel 4 g topical TID PRN 09/27/23 11/15/23 semaglutide 0.25 mg or 0.5 mg (2 0.5 mg SQ WEEKLY 09/27/23 11/15/23 mg/3 mL) subcutaneous pen injector ([employer] - neutrinity) Previous Rx's Medication Instructions Recorded atorvastatin 40 mg tablet 40 mg PO HS #30 tabs 07/23/23 carvedilol 3.125 mg tablet 3.125 mg PO BID #60 tabs 07/23/23 prasugrel 10 mg tablet 10 mg PO DAILY #30 tabs 07/28/23 ezetimibe 10 mg tablet (Zetia) 10 mg PO DAILY #30 tabs 09/13/23 ranolazine 500 mg tablet,extended See Rx Instructions .Route 10/24/23 release,12 hr .COMPLEX #180 tabs ondansetron 4 mg disintegrating 4 mg PO Q8H PRN nausea and 10/25/23 tablet vomiting #10 tabs Allergies Allergy/AdvReac Type Severity Reaction Status Date / Time metoclopramide [From Reglan] Allergy Severe Chest Pain Verified 11/15/23 10:55 Poultry Allergy Severe Swelling Verified 11/15/23 10:55 of Lip/Tongue/Throat chicken derived Allergy Anaphylaxis Verified 11/15/23 10:55 PFS PFS Disclaimer: The information contained in this section may have been updated after the patient was seen, as this information can be updated by other users. Medical History (Updated 01/01/24 @ 09:46 by Donald Hollis MD) Chronic eustachian tube dysfunction Impacted cerumen of left ear Foreign body in left ear Coronary artery disease Barretts esophagus GERD (gastroesophageal reflux disease) Eustachian tube dysfunction Allergic rhinitis Recurrent serous otitis media HLD (hyperlipidemia) HTN (hypertension) Type 2 diabetes mellitus Mesenteric panniculitis Bile reflux gastritis Pancreatitis Helicobacter pylori (H. pylori) infection Hyperlipidemia Surgical History Stented coronary artery Status post myringotomy with insertion of tube Hx laparoscopic cholecystectomy History of tonsillectomy Family History Other Cancer Coronary artery disease Diabetes Heart attack Social History Smoking Status: Never smoker alcohol intake: never substance use type: denies use current occupational status: employed and other Travel in the last 8 weeks: None household members: spouse housing: house caffeine: Yes ROS Obtained: Yes Systems reviewed as appropriate & no additional complaints except as documented Physical Exam General General appearance: alert and in no apparent distress Head Head exam: atraumatic and normocephalic Eye Eye exam: Present PERRL ENT ENT exam: Present mucous membranes moist and other (Slight trismus, uvula midline, tender right mandibular wisdom tooth, swelling of the right buccal mucosa. No external erythema over the cheek.) Neck Neck exam: Present normal inspection Chest Chest inspection: Present normal inspection and symmetric chest wall rise Respiratory Respiratory exam: Absent respiratory distress Cardiovascular Cardiovascular exam: Present regular rate and normal rhythm Abdominal Exam Abdominal exam: Present soft Extremities Exam Extremities exam: Present normal inspection Neurological Exam Neurological exam: Present alert Psychiatric Psychiatric exam: Present normal affect Skin Skin exam: Present warm and dry Medical Decision Making Romero Inquiry Pt receiving controlled substance: No Vital Signs: 01/01/24 07:26 01/01/24 08:14 Temperature 98 F Temperature Source Oral Pulse Rate 88 Pulse Rate [Right Radial] 97 H Respiratory Rate 18 Blood Pressure 141/93 H Blood Pressure [Right Arm] 162/97 H Blood Pressure Mean [Right Arm] 118 02 Sat by Pulse Oximetry 98 95 Oxygen Delivery Method Room Air Room Air Lab Data Lab Results 01/01/24 07:50: WBC 8.7, RBC 5.65, Hgb 16.2, Hct 49.9, MCV 88.3, MCH 28.7, MCHC 32.5, RDW 15.0, Plt Count 290, MPV 7.3 L, Neut % (Auto) 62.6, Lymph % (Auto) 26.2, Angelina % (Auto) 6.1, Eos % (Auto) 3.7, Baso % (Auto) 1.4, Neut # (Auto) 5.5, Lymph # (Auto) 2.3, Angelina # (Auto) 0.5, Eos # (Auto) 0.3, Baso # (Auto) 0.1, Sodium 140, Potassium 4.6, Chloride 104, Carbon Dioxide 29, Anion Gap 11.6, BUN 21 H, Creatinine 0.80, Estimated Creat Clear 130, Estimated GFR 99, Est GFR ( Amer) 119, Glucose 128 H, Calcium 10.0, C-Reactive Protein 1.2 01/01/24 07:50 01/01/24 07:50 Orders (Tests/Meds): ED MEDICATIONS Generic Name Dose Route Start Last Admin Trade Name Freq PRN Reason Stop Dose Admin Ampicillin Sodium/Sulbactam 100 mls @ 200 mls/hr 01/01/24 07:45 01/01/24 07:53 Sodium 3 gm/ Sodium Chloride IV 01/11/24 07:44 200 mls/hr Q6H CIARRA Administration Discontinued Medications Generic Name Dose Route Start Last Admin Trade Name Freq PRN Reason Stop Dose Admin Acetaminophen 1,000 mg 01/01/24 07:32 01/01/24 07:52 Acetaminophen 500mg Tab PO 01/01/24 07:33 1,000 mg ONCE ONE Administration Iopamidol 100 ml 01/01/24 08:25 01/01/24 08:26 Iopamidol-370 (76%);100ml Bottle IV 01/01/24 08:26 100 ml ONCE ONE Administration Ketorolac Tromethamine 30 mg 01/01/24 07:32 01/01/24 07:52 Ketorolac 30mg/Ml Vial IV 01/01/24 07:33 30 mg ONCE ONE Administration Lidocaine HCl 15 ml 01/01/24 07:32 01/01/24 07:52 Lidocaine 2% Viscous Teri 15ml Udc PO 01/01/24 07:33 15 ml ONCE ONE Administration Sodium Chloride 10 ml 01/01/24 08:25 01/01/24 08:26 Sodium Chloride 0.9% 10ml Syr (Rad Only) IV 01/01/24 08:26 10 ml ONCE ONE Administration ORDERS Category Date Time Status CT facial bones w con Stat Cat Scan 01/01/24 07:32 Taken BMP [Basic Metabolic Panel] Stat Lab 01/01/24 07:50 Completed CBC w/Auto Diff [Complete Blood Count Auto Diff] Stat Lab 01/01/24 07:50 Completed CRP [C-Reactive Protein] Stat Lab 01/01/24 07:50 Completed Blood Culture Stat Micro 01/01/24 07:50 Received Medical Decision Narrative: In summary patient is a 58-year-old male with past medical history described above presents emergency department for evaluation of right-sided tooth pain. Patient is hemodynamically stable nontoxic-appearing upon arrival, afebrile. Differential includes cellulitis, abscess, among others. Workup will be conducted with hematologic labs, CT face with IV contrast. Initial interventions include Tylenol, Toradol, dental ball, Unasyn. Initial workup reviewed by me, hematologic labs are nonactionable, no leukocytosis critical electrolyte abnormality or or elevated inflammatory markers. CT informally visualized by me, there is a ring-enhancing abscess about the mandible adjacent to the right mandibular molars approximately 3 cm axial, 3 cm sagittal, 4 cm coronal dimensions that extends in the buccal space adjacent to the maxilla. The case was discussed with [facility] Dr. Rodriguez who accepted patient for transfer to [facility] for continued evaluation with OMFS at this time. Given that patient is protecting his airway, has no asymmetric swelling of his posterior oropharynx, no elevation of the floor of his mouth and is managing his secretions saturating well on room air without tachypnea patient is appropriate for transfer via POV at this time. Critical Care Critical Care Time Critical Care Time: No
[2024-01-01] MEDS: LIDOCAINE 2% VISCOUS SOL 15ML UDC 15 ML PO (07:52)
[2024-01-01] MEDS: KETOROLAC 30MG/ML VIAL 30 MG IV (07:52)
[2024-01-01] MEDS: ACETAMINOPHEN 500MG TAB 1000 MG PO (07:52)
[2024-01-01] MEDS: AMPICILLIN/SULBACTAM 3 GM in 0.9 % SODIUM CHLORIDE 100 ML IV (07:53)
[2024-01-01 07:57] LABS: Chloride 104 mmol/L (98-107); Potassium 4.6 mmoL/L (3.5-5.1); Sodium 140 mmol/L (136-145)
[2024-01-01 08:00] LABS: Anion Gap 11.6 mEq/L (5-15); Blood Urea Nitrogen 21 mg/dl (9-20); Carbon Dioxide 29 mmol/L (22.0-30.0); Creatinine Clearance Estimated 130 mL/min (50-200); Estimated Glomerular Filt Rate 99 ml/min (>60); GFR (African American) 119 ML/MIN (>60)
[2024-01-01 08:01] LABS: Glucose 128 mg/dl (74-100)
[2024-01-01 08:06] LABS: C-Reactive Protein 1.2 mg/L (0-4)
[2024-01-01 08:07] LABS: Basophils # 0.1 K/mm3 (0-0.2); Basophils % 1.4 % (0.1-2.0); Eosinophils # 0.3 K/mm3 (0.0-0.4); Eosinophils % 3.7 % (0.1-12.0); Hematocrit 49.9 % (42.0-52.0); Hemoglobin 16.2 g/dL (14.1-18.0); Lymphocytes # 2.3 K/mm3 (0.7-4.5); Lymphocytes % 26.2 % (10-50); Mean Corpuscular HGB Conc 32.5 g/dL (31.8-35.4); Mean Corpuscular Hemoglobin 28.7 pg (27.0-31.2); Mean Corpuscular Volume 88.3 fl (80-94); Mean Platelet Volume 7.3 fl (7.4-10.4); Monocytes # 0.5 K/mm3 (0.1-1.0); Monocytes % 6.1 % (1.7-9.3); Neutrophils # 5.5 K/mm3 (1.8-7.8); Neutrophils % 62.6 % (37.0-80.0); Platelet Count 290 K/mm3 (142-424); Red Blood Count 5.65 M/mm3 (4.60-6.20); White Blood Count 8.7 K/mm3 (4.8-10.8)
[2024-01-01 08:14] VITALS: BP 141/93; PULSE 88; O2SAT 95
--- NOTE | 2024-01-01 08:14 | PC.NURSE ---
Rounded on pt. Warm blanket provided. No other needs voiced and call light remains within reach.
--- NOTE | 2024-01-01 08:18 | PC.NURSE ---
pt taken to ct scan
--- NOTE | 2024-01-01 08:24 | PC.NURSE ---
pt back from ct scan
[2024-01-01] MEDS: SODIUM CHLORIDE 0.9% 10ML SYR (RAD ONLY) 10 ML IV (08:26)
[2024-01-01] MEDS: IOPAMIDOL-370 (76%);100ML BOTTLE 100 ML IV (08:26)
--- NOTE | 2024-01-01 08:31 | PC.NURSE ---
Dr. Hollis at [facility] to update pt on results and POC
--- NOTE | 2024-01-01 09:36 | PC.NURSE ---
[place] contacted at this time
[2024-01-01 09:52] VITALS: BP 143/82; PULSE 90; RESP 16; TEMP 36.8; O2SAT 98
--- NOTE | 2024-01-01 10:00 | PC.NURSE ---
Called report to Ximena VILLAGOMEZ @ [facility] ER. Pt educated to on directions to [facility] and given transfer record. Left PIV in place and wrapped in Coban dressing.
== END 2024-01-01 10:09 | disposition short-term general hospital (02) ==
PROVIDERS: Emergency Provider Emergency Medicine; PCP Family Medicine
DX: M27.2 Inflammatory conditions of jaws (principal); R68.84 Jaw pain; I11.9 Hypertensive heart disease without heart failure; E78.5 Hyperlipidemia, unspecified; I25.10 Atherosclerotic heart disease of native coronary artery without angina pectoris; K21.9 Gastro-esophageal reflux disease without esophagitis; E11.9 Type 2 diabetes mellitus without complications; Z95.5 Presence of coronary angioplasty implant and graft; Z79.84 Long term (current) use of oral hypoglycemic drugs
CPT/HCPCS: 70487; 80048; 85025; 86140; 87040; 96365; 96375; 99285; Q9967

== ENCOUNTER 2024-03-07 10:30 | Outpatient (POV) | payer BC, SELFPAY | END 2024-03-07 23:59 | disposition home or self-care (01) | LOC: SC 10:30 | PROVIDERS: Visit Provider Specialist/Technologist | DX: Z00.00 Encounter for general adult medical examination without abnormal findings (principal) ==

== ENCOUNTER 2024-08-03 13:50 | Outpatient (CLI) | payer BC, SELFPAY ==
[2024-08-03 14:12] LABS: Basophils # 0.1 K/mm3 (0-0.2); Basophils % 1.1 % (0.1-2.0); Eosinophils # 0.3 K/mm3 (0.0-0.4); Eosinophils % 4.2 % (0.1-12.0); Hemoglobin 16.5 g/dL (14.1-18.0); Lymphocytes # 1.9 K/mm3 (0.7-4.5); Lymphocytes % 26.6 % (10-50); Mean Corpuscular HGB Conc 34.3 g/dL (31.8-35.4); Mean Corpuscular Volume 84.7 fl (80-94); Monocytes # 0.7 K/mm3 (0.1-1.0); Monocytes % 10.1 % (1.7-9.3); Neutrophils # 4.1 K/mm3 (1.8-7.8); Platelet Count 257 K/mm3 (142-424); Red Blood Count 5.67 M/mm3 (4.60-6.20); Red Cell Distribution Width 14.1 % (11.5-17.5)
[2024-08-03 14:30] LABS: Albumin Level 4.1 g/dl (3.5-5.0); Chloride 103 mmol/L (98-107); Sodium 138 mmol/L (136-145)
[2024-08-03 14:31] LABS: Potassium 4.6 mmoL/L (3.5-5.1)
[2024-08-03 14:33] LABS: Alanine Aminotransferase 28 U/L (12-78); Alkaline Phosphatase 102 U/L (38-126); Anion Gap 13.6 mEq/L (5-15); Aspartate Amino Transferase 23 U/L (17-59); Bilirubin,Total 0.8 mg/dl (0.2-1.3); Blood Urea Nitrogen 20 mg/dl (9-20); Carbon Dioxide 26 mmol/L (22.0-30.0); Estimated Glomerular Filt Rate 86 ml/min (>60); GFR (African American) 104 ML/MIN (>60)
[2024-08-03 14:34] LABS: Calcium 9.2 mg/dl (8.4-10.2); Globulin 2.1 g/dL (1.3-3.2); Glucose 198 mg/dl (74-100); Total Protein,Serum 6.2 g/dl (6.3-8.2)
== END 2024-08-03 23:59 | disposition home or self-care (01) ==
LOC: LAB 13:51
PROVIDERS: PCP Family Medicine; Visit Provider Otolaryngology
DX: H69.93 Unspecified Eustachian tube disorder, bilateral (principal); H61.23 Impacted cerumen, bilateral
CPT/HCPCS: 36415; 80053; 85025

== ENCOUNTER 2024-08-06 08:00 | Day surgery (SDC) | payer BC, SELFPAY ==
[2024-08-03 10:55] VITALS: BMI 30.2
[2024-08-06] VITALS (9 sets, daily range): BP systolic 136–178; BP diastolic 76–110; PULSE 81–91; RESP 16–18; TEMP 36.2–36.6; O2SAT 95–98
[2024-08-06 08:52] LABS: POC Glucose,Bedside 114 (70-110)
--- NOTE | 2024-08-06 08:53 | EXP.ANES.CKL ---
[facility] Disclaimer: The information contained in this section may have been updated after the patient was seen, as this information can be updated by other users. Medical History History of ND (myocardial infarction) Serous otitis media Hearing loss, bilateral Impacted cerumen Chronic eustachian tube dysfunction Impacted cerumen of left ear Foreign body in left ear Coronary artery disease Barretts esophagus GERD (gastroesophageal reflux disease) Eustachian tube dysfunction Allergic rhinitis Recurrent serous otitis media HLD (hyperlipidemia) HTN (hypertension) Type 2 diabetes mellitus Mesenteric panniculitis Bile reflux gastritis Pancreatitis Helicobacter pylori (H. pylori) infection Hyperlipidemia Surgical History Stented coronary artery Status post myringotomy with insertion of tube Tubes are still functioning in good position Hx laparoscopic cholecystectomy History of tonsillectomy Family History Other Cancer Coronary artery disease Diabetes Heart attack Social History Smoking Status: Never smoker alcohol intake: never substance use type: denies use current occupational status: employed and other Travel in the last 8 weeks: None household members: spouse housing: house caffeine: Yes [facility] Anesthesia Checklist Patient Identification Patient Identification: Arm Band, Family and Verbal (Name & ) Structural Data Admitted From: Home Planned Operative Procedure/s: BMT w/eustachian tuboplasty Consent for Planned Operative Procedure(s) Verified: Yes Verified Documents: Surgical Consent and History and Physical NPO Status Verified Time NPO: 21:00 Chart Verification Results Verified: CBC, BMP and ECG Additional verifications Fingerstick Blood Glucose: 114 Patient : No Anesthesia Reactions: No Hx Blood Transfusions: No Blood Transfusion Reaction: No Cardiovascular Assessment Heart Sounds: S1 & S2 Pulse Rhythm: Irregular Peripheral Edema: No Airway Assessment Mallampati Score:: Class II C-Spine Mobility Assessed: Yes TMJ Mobility Assessed: Yes Dentition: Good Dentition (Nothing loose per pt.) Neurological Assessment Level of Consciousness: Awake, Alert, Appropriate and Follows Commands Hx Seizures: No Numbness or tingling in extremities: No Anesthesia Plan Anesthesia Risk discussed: Yes Anesthesia Plan: Verified ASA Class: III Anesthesia Type: General
[2024-08-06] MEDS: 0.9 % SODIUM CHLORIDE 1000ML 1,000 ML IV (09:01)
[2024-08-06] MEDS: OXYMETAZOLINE NASAL SPRAY 0.05% 15ML 2 ML NS (09:44)
[2024-08-06] MEDS: CIPRO 0.3%-DEX 0.1% OTIC SUSP 7.5ML 7.5 ML OT (10:05)
[2024-08-06] MEDS: LIDOCAINE 4% 50 ML (10:05)
[2024-08-06] MEDS: OXYMETAZOLINE NASAL SPRAY 0.05% 15ML 15 ML NS (10:05)
--- NOTE | 2024-08-06 10:36 | EXP.OP.NOTE ---
Date of procedure: 08/06/24 Pre-op Diagnosis:: Chronic eustachian tube dysfunction Bilateral chronic serous otitis media Post-op Diagnosis:: Same Procedure performed:: 1. Bilateral eustachian tube balloon dilatation 2. Bilateral myringotomy with tube placement with Dura-Vent tubes Surgeon:: Hermilo Melchor III, MD CLAIM SERVICE REPRESENTATIVE:: Kian Milian Anesthesia: GETA Estimated blood loss (mL): 5 Operative findings:: Bilateral serous effusions were noted in the middle ear spaces. He also had some lymphoid degeneration around the eustachian tube openings bilaterally. Operative note:: The patient was brought to the operating room placed under general endotracheal anesthesia with an LMA device. Topical Afrin and lidocaine was applied to the nasal cavity bilaterally via cottonoids. Using microscopic guidance a made incision in the left inferior portion of the tympanic membrane. Serous effusion was aspirated from the middle ear space. A Dura-Vent tube was placed through the incision followed by antibiotic drops. A similar procedure with similar findings was done on the left side. At this point we remove the cottonoids from both sides of the nose. Using a 0 degree endoscope we identified the eustachian tube opening. Using a [employer] eustachian tube balloon, the eustachian tube opening was cannulated and the balloon was advanced and inflated for 2 minutes. Mupirocin ointment was then applied in this area. Similar procedure was then performed on the right side with similar results. The patient was then awakened in the operating room taken recovery good condition; estimated blood loss less than 5 mL. Condition: stable Disposition: PACU Complications:: None
--- NOTE | 2024-08-06 10:40 | P.PNANES_ITS ---
[facility] Anesthesia Record Part I Anesthesia Record I Intake, IV Amount: 700 Hydration: Adequate Estimated blood loss (mL): 2 Urine output (mL): 0 Blood Products used (#): none Blood Pressure: 177/100 SaO2: 96 Pulse Rate: 82 Airway Patency: Patent Respiratory Rate: 18 Temperature: 97.2 F Patient is:: Drowsy and Stable Stable to PACU at:: 10:34
--- NOTE | 2024-08-06 12:48 | SUR.PHASEII ---
Spoke to Rony Santamaria MA in Dr Melchor office, she stated that Dr Melchor wants the pt to resume prescribed blood thinners, tomorrow 08/07/24. I called the pt on his cell phone and he verbalized understanding.
--- NOTE | 2024-08-08 10:07 | EXP.ANES.II ---
[facility] Anesthesia Record Part II Anesthesia Record Part II Discharge Time: 11:04 Destination: Surgical Day Care (OP Surgery) PACU nurse assessment reviewed?: Yes Patient Condition:: Good Anesthesia Complications:: None Swallowing reflex intact?: Yes Airway Patency: Patent Cyanosis?: No Blood Pressure: 136/76 SaO2: 97 Respiratory Rate: 16 Pulse Rate: 91 Temperature: 97.1 F Mental Status: Alert & Oriented Pain level:: 0 Nausea and/or vomitting:: None Intake, IV Amount: 0 Hydration: Adequate
[2024-08-08 10:08] VITALS: BP 136/76; PULSE 91; RESP 16; TEMP 36.2; O2SAT 97
== END 2024-08-06 11:35 | disposition home or self-care (01) ==
PROVIDERS: PCP Family Medicine; Visit Provider Otolaryngology
PROC: (CPT 69436; principal; 2024-08-06 09:45)
DX: H69.83 Other specified disorders of Eustachian tube, bilateral (principal); H65.23 Chronic serous otitis media, bilateral
CPT/HCPCS: 69436; 69706; 82962; C1726; J1100; J2405; J3010; J7030

== ENCOUNTER 2024-10-01 20:44 | Emergency (ER) | payer BC, SELFPAY ==
[2024-10-01 20:52] VITALS: BP 157/83; PULSE 92; RESP 18; TEMP 36.7; O2SAT 99; BMI 28.4
--- NOTE | 2024-10-01 20:54 | XR_ITS ---
PROCEDURE INFORMATION: Exam: XR Chest Exam date and time: 10/01/2024 8:57 PM Age: 59 years old Clinical indication: Dyspnea; Prior surgery; Surgery date: <1 month; Surgery type: Cardiac stent placement; Additional info: Exertional SOA TECHNIQUE: Imaging protocol: Radiologic exam of the chest. Views: 1 view. COMPARISON: CR XR CHEST PORTABLE 07/21/2023 9:44 AM FINDINGS: Lungs: No evidence of acute pulmonary disease or infiltrates Pleural spaces: No large effusion or pneumothorax. Heart/Mediastinum: No evidence of mediastinal widening or cardiac silhouette enlargement; the mediastinum and heart appear within normal limits for contour and size. Bones/joints: No evidence of acute osseous abnormalities within the visualized portions of the thoracic spine and ribs. Osseous structures appear appropriate for patient age. IMPRESSION: No dense parenchymal consolidation, pleural effusion, or pneumothorax.
[2024-10-01 21:00] VITALS: BP 134/92; PULSE 89; O2SAT 99
[2024-10-01 21:16] LABS: Basophils # 0.1 K/mm3 (0-0.2); Basophils % 0.6 % (0.1-2.0); Eosinophils # 0.4 K/mm3 (0.0-0.4); Eosinophils % 4.5 % (0.1-12.0); Hematocrit 49.1 % (42.0-52.0); Hemoglobin 16.3 g/dL (14.1-18.0); Lymphocytes # 2.3 K/mm3 (0.7-4.5); Lymphocytes % 26.9 % (10-50); Mean Corpuscular HGB Conc 33.2 g/dL (31.8-35.4); Mean Corpuscular Volume 84.4 fl (80-94); Mean Platelet Volume 9.2 fl (7.4-10.4); Monocytes # 0.9 K/mm3 (0.1-1.0); Monocytes % 10.9 % (1.7-9.3); Neutrophils # 4.9 K/mm3 (1.8-7.8); Neutrophils % 56.6 % (37.0-80.0); Platelet Count 285 K/mm3 (142-424); Red Blood Count 5.82 M/mm3 (4.60-6.20); Red Cell Distribution Width 13.5 % (11.5-17.5); White Blood Count 8.6 K/mm3 (4.8-10.8)
--- NOTE | 2024-10-01 21:18 | ECG_ITS ---
APPROVED REPORT Exam: Resting ECG HR:87 bpm ECG Measurements Heart Rate 87 AXES SD 128 P 56 QRSd 100 QRS 70 QT 371 T 48 QTc 416 Conclusion SINUS RHYTHM NORMAL ECG UNCONFIRMED REPORT Electronically signed by : KEI ZHAO, 10/05/2024 05:49:30
[2024-10-01 21:20] LABS: Lactate Venous 1.8 mmol/L (0.4-2.0); VBG Base Excess -3.4 mmol/L (-2.4-2.3); VBG PCO2 39.8 mmol/L (35-51); VBG PH 7.36 mmol/L (7.31-7.41); VBG Total CO2 23.3 mmol/L (23-27)
--- NOTE | 2024-10-01 21:23 | ED_ITS ---
Discharge Plan Disposition Patient Disposition: Home, Self-Care Chief Complaint: Shortness of Breath/Dyspnea Prescriptions Prescriptions: No Action azelastine 137 mcg (0.1 %) spray,non-aerosol 1 spray intranasal ONCE Rx Instructions: administer into each nostril Jardiance 25 mg tablet 25 mg PO DAILY Patient Comments: TAKE 1 TABLET BY MOUTH EVERY DAY IN THE MORNING montelukast [Singulair] 10 mg tablet 10 mg PO HS Patient Comments: TAKE 1 TABLET BY MOUTH EVERY DAY diclofenac sodium 1 % gel 4 g topical TID PRN (Reason: n/a) Patient Comments: APPLY 4GM TOPICALLY TO ANKLE AND KNEE 3 TIMES DAILY Ozempic 1 mg/dose (4 mg/3 mL) pen injector 1 mg SQ WEEKLY Patient Comments: ADMINSITER 1MG UNDER THE SKIN ONCE WEEKLY prasugrel 10 mg tablet See Rx Instructions .ROUTE .COMPLEX Qty: 30 4RF Dose Instruction: TAKE ONE TABLET BY MOUTH EVERY DAY Rx Instructions: TAKE ONE TABLET BY MOUTH EVERY DAY aspirin 81 MG tablet,delayed release (DR/EC) 81 mg PO DAILY bupropion HCl 75 MG tablet 75 mg PO DAILY fluticasone propionate [Flonase Allergy Relief] 50 mcg/actuation spray,suspension 1 spray INTRANASAL DAILY Patient Comments: INHALE 1 SPRAY INTO EACH NOSTRIL ONCE DAILY rabeprazole [AcipHex] 20 mg tablet,delayed release (DR/EC) 20 mg PO HS Patient Comments: TAKE 1 TABLET BY MOUTH EVERY DAY famotidine [Pepcid] 40 mg tablet 40 mg PO DAILY Patient Comments: TAKE 1 TABLET BY MOUTH EVERY DAY AT BEDTIME losartan [Cozaar] 25 mg tablet 25 mg PO DAILY Patient Comments: TAKE 1 TABLET BY MOUTH EVERY DAY metformin 1,000 mg tablet 1,000 mg PO BIDWMEAL Claritin-D 24 Hour 10-240 mg Tablet Extended Release 24 Hr 1 tab PO DAILY glipizide [Glucotrol XL] 10 mg tablet extended release 24hr 10 mg PO HS atorvastatin 40 mg Tablet 40 mg PO HS Qty: 30 4RF carvedilol 3.125 mg Tablet 3.125 mg PO BID Qty: 60 4RF ondansetron 4 mg tablet,disintegrating 4 mg PO Q8H PRN (Reason: nausea and vomiting) Qty: 10 0RF ranolazine 500 mg tablet extended release 12 hr 500 mg PO BID Rx Instructions: TAKE ONE TABLET BY MOUTH TWICE DAILY ezetimibe [Zetia] 10 mg tablet 10 mg PO DAILY Rx Instructions: TAKE ONE TABLET BY MOUTH EVERY DAY Referrals Follow up/Referrals: Kevin Jimenez MD [Primary Care Provider] - See instructions Activity Restrictions/Add. Instructions Additional Instructions/Restrictions: Call your family doctor to establish care for this visit to the emergency department and schedule follow-up within 48 hours to ensure improvement. If you have any worsening of your condition or any other concerning signs or symptoms, return to the emergency department or your primary care doctor for further evaluation. Also contact Dr. Fletcher's office for further follow-up in the setting of known stenosis of LAD and diagonal artery. Clinical Impressions Clinical Impression: Exertional dyspnea Print Language Print Language: Uzbek Discharge ED Provider: Tad Sanabria General Chief Complaint: Shortness of Breath/Dyspnea Stated Complaint: SOA,Dizziness,weakness Time Seen by Provider: 10/01/24 20:53 Mode of Arrival: Ambulatory Source of Information: Patient Limitations: No Limitations Description of Symptoms (Recalled from ER Triage Doc. by RN): pt reports he became winded while shoveling snow this morning, and he has continued to be short of breath throughout the day and became dizzy. pt reports no recent illness. History of Present Illness HPI narrative: Please note that above description of symptoms, in this electronic medical record under categorization of recalled from ER triage doctor by RN are reflective of an initial nursing assessment, however, is not reflective of my full history and physical exam that was personally taken and clarified. Consequentially, this preceding description of symptoms, which may include the patient's categorized chief complaint in the EMR, do not reflect my personal clinical impression, and the ultimate description of history of present illness and patient stated complaints should be deferred to this section of the note. Unless stated otherwise or congruent with this section of the note, additional signs, symptoms, or incongruence should be interpreted as inaccurate with my clinical impression. Related Data Home Medications ?Medication ?Instructions ?Recorded ?Confirmed aspirin 81 mg tablet,delayed 81 mg PO DAILY heart health 05/23/18 09/03/24 release bupropion HCl 75 mg tablet 75 mg PO DAILY mood 10/23/18 09/03/24 empagliflozin 25 mg tablet 25 mg PO DAILY Diabetes 05/03/22 09/03/24 (Jardiance) montelukast 10 mg tablet 10 mg PO HS Allergy symptoms 05/03/22 09/03/24 (Singulair) fluticasone propionate 50 1 spray intranasal DAILY Allergy 05/29/22 09/03/24 mcg/actuation nasal symptoms spray,suspension (Flonase Allergy Relief) famotidine 40 mg tablet (Pepcid) 40 mg PO DAILY Acid Reflux 07/21/23 09/03/24 glipizide 10 mg tablet, extended 10 mg PO HS Diabetes 07/21/23 09/03/24 release 24 hr (Glucotrol XL) loratadine-pseudoephedrine ER 10 1 tab PO DAILY allergies 07/21/23 09/03/24 mg-240 mg tablet,extended [id number] (Claritin-D 24 Hour) losartan 25 mg tablet (Cozaar) 25 mg PO DAILY High Blood Pressure 07/21/23 09/03/24 metformin 1,000 mg tablet 1,000 mg PO BIDWMEAL Diabetes 07/21/23 09/03/24 rabeprazole 20 mg tablet,delayed 20 mg PO HS Acid Reflux 07/21/23 09/03/24 release (AcipHex) diclofenac sodium 1 % topical gel 4 g topical TID PRN n/a 09/27/23 09/03/24 semaglutide 1 mg/dose (4 mg/3 mL) 1 mg SQ WEEKLY 04/02/24 09/03/24 subcutaneous pen injector (Ozempic) azelastine 137 mcg (0.1 %) nasal 1 spray intranasal ONCE 05/09/24 09/03/24 spray ezetimibe 10 mg tablet (Zetia) 10 mg PO DAILY 08/03/24 09/03/24 ranolazine 500 mg tablet,extended 500 mg PO BID 08/03/24 09/03/24 release,12 hr Previous Rx's ?Medication ?Instructions ?Recorded atorvastatin 40 mg tablet 40 mg PO HS #30 tabs 07/23/23 carvedilol 3.125 mg tablet 3.125 mg PO BID #60 tabs 07/23/23 ondansetron 4 mg disintegrating 4 mg PO Q8H PRN nausea and 10/25/23 tablet vomiting #10 tabs prasugrel 10 mg tablet See Rx Instructions .Route 08/20/24 .COMPLEX #30 tabs Allergies Allergy/AdvReac Type Severity Reaction Status Date / Time metoclopramide (From Reglan) Allergy Severe Chest Pain Verified 09/03/24 09:50 Poultry Allergy Severe Swelling Verified 09/03/24 09:50 of Lip/Tongue/Throat chicken derived Allergy Anaphylaxis Verified 09/03/24 09:50 [facility] Disclaimer: The information contained in this section may have been updated after the patient was seen, as this information can be updated by other users. Medical History (Updated 10/01/24 @ 22:24 by Tad Sanabria MD) History of SD (myocardial infarction) Serous otitis media Hearing loss, bilateral Impacted cerumen Chronic eustachian tube dysfunction Impacted cerumen of left ear Foreign body in left ear Coronary artery disease Barretts esophagus GERD (gastroesophageal reflux disease) Eustachian tube dysfunction Allergic rhinitis Recurrent serous otitis media HLD (hyperlipidemia) HTN (hypertension) Type 2 diabetes mellitus Mesenteric panniculitis Bile reflux gastritis Pancreatitis Helicobacter pylori (H. pylori) infection Hyperlipidemia Surgical History (Updated 09/03/24 @ 10:29 by Farida Ferguson APRN) Status post myringotomy with insertion of tube Stented coronary artery Hx laparoscopic cholecystectomy History of tonsillectomy Family History Other Cancer Coronary artery disease Diabetes Heart attack Social History Smoking Status: Never smoker alcohol intake: never substance use type: denies use current occupational status: employed and other Travel in the last 8 weeks: None household members: spouse housing: house caffeine: Yes Have you lived/traveled outside [place] in past 30 days?: No Contact w/someone who lives/traveled outside US past 30 days?: No Exposure to someone with infectious disease in past 14 days?: No Do you have a fever (greater than 100.4 F or 38 C)?: No Have you tested positive for COVID-19: No Exposed to someone with COVID-19 in past 14 days?: No Do you have a sore throat?: No Do you have a cough?: No Do you have any weakness?: Yes Do you have any diarrhea?: No Are you experiencing any unusual bleeding?: No Do you have any muscle aches/pain?: No Do you have any abdominal pain?: No Are you experiencing loss of taste or smell?: No Other Medical History Have you received the Flu Vaccine for this season: No Have you received the Pneumonia Vaccine: No ROS Obtained: Yes All systems reviewed & no additional complaints except as documented Physical Exam General General appearance: alert Neck Neck exam: Present trachea midline Chest Chest inspection: Present normal inspection and symmetric chest wall rise Respiratory Respiratory exam: Present normal lung sounds bilaterally; Absent respiratory distress, wheezes, stridor, accessory muscle use or prolonged expiratory phase Cardiovascular Cardiovascular exam: Present regular rate, normal rhythm and other (Pulses equal and symmetric in upper and lower extremities) Extremities Exam Extremities exam: Absent edema Neurological Exam Neurological exam: Present alert, oriented X3 and CN II-XII intact Skin Skin exam: Present warm and dry; Absent cyanosis, diaphoresis or pallor HEART Score HEART Score HEART Score assessment performed?: Yes History (anamnesis): Moderately suspicious ECG: Normal Age: 45-65 years Risk factors: 3 or more risk factors Troponin: </= normal limit HEART Score: 4 Critical Care Critical Care Time Critical Care Time: No Medical Decision Making Medical Records Medical records reviewed: Yes I reviewed the patient's medical records. Romero Inquiry Pt receiving controlled substance: No Romero was queried for this patient: No Vital Signs Vital Signs: 10/01/24 20:52 10/01/24 21:00 10/01/24 21:30 Temperature 98.1 F Temperature Source Oral Pulse Rate 89 89 Pulse Rate [Right] 92 H Respiratory Rate 18 13 Blood Pressure 134/92 H 129/83 Blood Pressure [Right Arm] 157/83 H Blood Pressure Mean [Right Arm] 107 02 Sat by Pulse Oximetry 99 99 99 Oxygen Delivery Method Room Air Lab Data Labs: Lab Results 10/01/24 20:54: VBG pH 7.36, VBG pCO2 39.8, VBG pO2 30.0, VBG HCO3 22.0 L, VBG Total CO2 23.3, VBG O2 Saturation 61.0, VBG Base Excess -3.4 L, VBG Lactic Acid 1.8 10/01/24 21:05: WBC 8.6, RBC 5.82, Hgb 16.3, Hct 49.1, MCV 84.4, MCH 28.0, MCHC 33.2, RDW 13.5, Plt Count 285, MPV 9.2, Neut % (Auto) 56.6, Lymph % (Auto) 26.9, [place] % (Auto) 10.9 H, Eos % (Auto) 4.5, Baso % (Auto) 0.6, Neut # (Auto) 4.9, Lymph # (Auto) 2.3, [place] # (Auto) 0.9, Eos # (Auto) 0.4, Baso # (Auto) 0.1, PT 10.3, INR 0.91, APTT 27.6, Sodium 140, Potassium 4.2, Chloride 103, Carbon Dioxide 27, Anion Gap 14.2, BUN 25 H, Creatinine 0.90, Estimated Creat Clear 102, Estimated GFR 86, Est GFR ( Amer) 104, Glucose 197 H, Calcium 9.2, Magnesium 1.8, Total Bilirubin 0.5, AST 27, ALT 31, Alkaline Phosphatase 114, Troponin I < 0.01, NT-Pro-B Natriuret Pep 39.6, Total Protein 6.6, Albumin 4.2, Globulin 2.4, Albumin/Globulin Ratio 1.8 10/01/24 21:05 10/01/24 21:05 Response Orders (Tests/Meds): ED MEDICATIONS Discontinued Medications Generic Name Dose Route Start Last Admin Trade Name Freq PRN Reason Stop Dose Admin Aspirin 324 mg 10/01/24 20:53 10/01/24 21:28 Aspirin 81mg Chewable Tablet PO 10/01/24 20:54 Not Given ONCE ONE ORDERS Category Date Time Status XR chest portable Stat Exams 10/01/24 20:54 Completed Complete Blood Count Auto Diff Stat Lab 10/01/24 21:05 Completed Comprehensive Metabolic Panel Stat Lab 10/01/24 21:05 Completed Magnesium Stat Lab 10/01/24 21:05 Completed NT Pro Brain Natriuretic Pep. Stat Lab 10/01/24 21:05 Completed PT INR [Prothrombin Time INR] Stat Lab 10/01/24 21:05 Completed PTT [Activated Partial Thrombo Time] Stat Lab 10/01/24 21:05 Completed Troponin I Q3H Lab 10/01/24 23:54 Ordered Troponin I Q3H Lab 10/02/24 02:54 Ordered Troponin I Stat Lab 10/01/24 21:05 Completed Venous Blood Gas Stat RT 10/01/24 20:54 Completed MDM Narrative Medical Decision Narrative: 59-year-old male history of hypertension, hyperlipidemia, diabetes, CAD and SD status post stenting in the LAD currently on aspirin and Plavix, GERD, Price's esophagus presenting with shortness of breath. Patient states that he shoveled the snow earlier today on 10/01 in the snowstorm. States that he did not feel short of breath while doing it, however shortly thereafter started feeling short of breath. Now short of breath even at rest and with minimal exertion. States that he has no chest pain, chest pressure, neurologic deficits, diaphoresis, nausea, vomiting, or any other concerns. Shortness of breath just feels like I cannot take a deep breath. No DVT or PE risk factors. Nothing in particular makes it better or worse. History was obtained via conversation with patient. On arrival, patient hemodynamically stable, alert, oriented x4, appropriate, GCS 15, moving all extremities spontaneously, pupils equal and reactive to light. Full physical exam performed and significant for well-appearing male no acute distress. Speaking in full sentences. Lungs are clear bilaterally. Cardiac exam with no murmurs gallops or rubs, no lower extremity edema. Unremarkable exam overall. Differential includes microvascular coronary artery disease, CHF, ACS, SD, coronary artery dissection, pneumothorax, PE, dissection, pericarditis, myocarditis, pneumothorax, aortic aneurysm, pneumonia, bronchitis, among others. Patient took 324 mg aspirin prior to leaving house and is also on daily Plavix, so no medications for symptomatic management and correction of underlying abnormalities. Patient placed on continuous cardiac monitoring and continuous pulse ox with initial blood pressure 157/83, heart rate to, saturation 99% on room air. Independent interpretation of EKG shows sinus rhythm [address] or T wave changes concerning for acute ischemia. LA interval 128, QRS 100, QTc 416. Normal axis. Workup independently interpreted and significant for nonactionable CBC or chemistry. Patient has mildly elevated BUN, but normal hemoglobin. Nonactionable LFTs, negative BNP and troponin. On independent interpretation of imaging, normal findings. No evidence of cardiomegaly, pleural effusions, cardiopulmonary airspace disease. See radiology read for full review of final results. Heart score 4. Delta troponin in observation was considered, however patient asymptomatic at rest here, negative workup and had symptoms starting earlier this morning, normal EKG, negative chest x-ray and heart score 4. I feel he is appropriate for outpatient management and further workup with cardiology. This could be related to flow-limiting stenosis versus exercise intolerance secondary to exaggerated blood pressure response as documented in cardiology notes, versus a combination of the 2. Because patient at baseline without signs or symptoms of clinical decompensation, deemed appropriate for discharge. Results were relayed to patient who voiced understanding and were agreeable to outpatient management and follow up. I discussed my clinical impression with patient and answered all questions. At this time, the evidence for any other entities in the differential is insufficient to warrant any further testing or ED observation. This was explained as well. Advisory was given that persistent or worsening symptoms require further evaluation. I confirmed the understanding of this discussion. Assistant Manager [employer] disclaimer Much of this encounter note is an electronic log chain worker spoken language to printed text. Electronic log chain worker of the spoken language may permit errors. Although I have reviewed the note, some errors may still exist.
[2024-10-01 21:24] LABS: Albumin Level 4.2 g/dl (3.5-5.0); Chloride 103 mmol/L (98-107); Sodium 140 mmol/L (136-145)
[2024-10-01 21:25] LABS: Potassium 4.2 mmoL/L (3.5-5.1)
[2024-10-01 21:27] LABS: Alanine Aminotransferase 31 U/L (12-78); Albumin/Globulin Ratio 1.8 (1.1-1.8); Anion Gap 14.2 mEq/L (5-15); Aspartate Amino Transferase 27 U/L (17-59); Blood Urea Nitrogen 25 mg/dl (9-20); Carbon Dioxide 27 mmol/L (22.0-30.0); Creatinine Clearance Estimated 102 mL/min (50-200); Estimated Glomerular Filt Rate 86 ml/min (>60); GFR (African American) 104 ML/MIN (>60); Globulin 2.4 g/dL (1.3-3.2); Total Protein,Serum 6.6 g/dl (6.3-8.2)
[2024-10-01 21:28] LABS: Alkaline Phosphatase 114 U/L (38-126); Bilirubin,Total 0.5 mg/dl (0.2-1.3); Calcium 9.2 mg/dl (8.4-10.2); Glucose 197 mg/dl (74-100); Magnesium 1.8 mg/dl (1.6-2.3)
[2024-10-01 21:29] LABS: Activated Partial Thrombo Time 27.6 seconds (22.8-30.6); INR 0.91 (0.9-1.1); Prothrombin Time 10.3 seconds (10.1-12.5)
[2024-10-01 21:30] VITALS: BP 129/83; PULSE 89; RESP 13; O2SAT 99
[2024-10-01 21:37] LABS: NT Pro Brain Natriuretic Pep. 39.6 pg/mL (0-125)
[2024-10-01 21:55] LABS: Troponin I < 0.01 ng/ml (0.00-0.034)
[2024-10-01 22:32] VITALS: BP 125/85; PULSE 83; RESP 16; TEMP 36.8; O2SAT 99
== END 2024-10-01 22:33 | disposition home or self-care (01) ==
PROVIDERS: Emergency Provider Emergency Medicine; PCP Family Medicine
DX: R06.09 Other forms of dyspnea (principal); R06.02 Shortness of breath; R42 Dizziness and giddiness; R53.1 Weakness
CPT/HCPCS: 71045; 80053; 82803; 83735; 83880; 84484; 85025; 85610; 85730; 93005; 99284

== ENCOUNTER 2024-12-18 09:38 | Outpatient (CLI) | payer BC, SELFPAY ==
[2024-12-18 10:19] LABS: Hemoglobin A1C 6.5 % (4.0-6.0)
[2024-12-18 10:33] LABS: Alanine Aminotransferase 23 U/L (12-78); Albumin Level 4.2 g/dl (3.5-5.0); Albumin/Globulin Ratio 2.1 (1.1-1.8); Alkaline Phosphatase 74 U/L (38-126); Anion Gap 7.2 mEq/L (5-15); Aspartate Amino Transferase 18 U/L (17-59); Bilirubin,Total 0.6 mg/dl (0.2-1.3); Blood Urea Nitrogen 21 mg/dl (9-20); Carbon Dioxide 32 mmol/L (22.0-30.0); Chloride 104 mmol/L (98-107); Chol/HDL Ratio 2.8 (1-3.5); Cholesterol 88 mg/dl (140-200); Estimated Glomerular Filt Rate 98 ml/min (>60); GFR (African American) 119 ML/MIN (>60); Glucose 103 mg/dl (74-100); HDL Cholesterol 31 mg/dl (40-60); Potassium 4.2 mmoL/L (3.5-5.1); Sodium 139 mmol/L (136-145); Total Protein,Serum 6.2 g/dl (6.3-8.2); Triglycerides 128 mg/dl (30-150); VLDL Cholesterol 26 mg/dL (0-40)
[2024-12-18 10:44] LABS: Direct LDL Cholesterol 37.95 mg/dL (100-129)
== END 2024-12-18 23:59 | disposition home or self-care (01) ==
LOC: LAB 09:39
PROVIDERS: PCP Family Medicine; Visit Provider Family Medicine
DX: Z12.5 Encounter for screening for malignant neoplasm of prostate (principal); E78.5 Hyperlipidemia, unspecified; E11.9 Type 2 diabetes mellitus without complications; Z79.84 Long term (current) use of oral hypoglycemic drugs; Z79.85 Long-term (current) use of injectable non-insulin antidiabetic drugs
CPT/HCPCS: 36415; 80053; 80061; 83036; G0103

== ENCOUNTER 2025-01-16 13:21 | Outpatient (CLI) | payer BC, SELFPAY ==
--- NOTE | 2025-01-16 13:23 | CA_ITS ---
APPROVED REPORT EXAM: Comprehensive 2D, Doppler, and color-flow Echocardiogram Project Management Consultant: Chelle Kelley RVT Ht: 5 ft 11 in Wt: 198lbs BSA: 2.10 BP: 120/70 mmHg Indications: CAD,DM,HTN,HLD 2D Dimensions LA Volume 24.40 mL LA Volume Index 11.62 mL/m2 (M/F) 16-34 M-Mode Dimensions RVDd 2.20 cm (0.9-2.6) LA Diam 3.55 cm (1.9-4.0) LVDd 3.86 cm (3.5-5.7) LVDs 2.43 cm (3.5-5.7) IVSd 0.97 cm (0.6-1.1) PWd 0.59 cm (0.6-1.1) EF (Teich) 67.70% FS 37.00% EDV (Teich) 64.30 mL TAPSE 2.78 (<1.7) ESV (Teich) 20.80 mL LV Diastology E Decel Time 210 (160-240 msec) E/A Ratio 0.7 Aortic Valve LAY Index 1.15 cm2/m2 AoV Peak Jon. 103.0 (50-130 cm/s) AO Peak GR. 4.30 mmHg AO Mean GR. 2.50 (<5 mmHg) AO VTI 21.6 (18-25 cm) LAY (VTI) 2.47 (2.5-4.5 cm2) Mitral Valve MV E Max Jon. 68.0 (40-130 cm/s) MV A Velocity 92.0 (40-130 cm/s) E/A Ratio 0.74 MV PHT 62.0 ms Pulmonary Valve PV Peak Velocity 72.0 (50-150 cm/s) Tricuspid Valve TR P. Velocity 205.00 cm/s RAP Estimate 10.00 mmHg RVSP 26.80 mmHg Left Ventricle The left ventricle is normal size. The left ventricular systolic function is normal. The left ventricular ejection fraction is within the normal range. There is increased LV wall thickness. There is normal LV segmental wall motion. Transmitral Doppler flow pattern suggests impaired LV relaxation. LVEF is 55%. Right Ventricle Right ventricle is mildly dilated. The right ventricular systolic function is normal. Atria The left atrium size is normal. The right atrium size is normal. There is no Doppler evidence of interatrial shunt. Aortic Valve Aortic valve is mildly thickened. There is no aortic valvular stenosis. Trace aortic regurgitation. Mitral Valve The mitral valve is normal in structure. No evidence of mitral valve stenosis. Trace mitral regurgitation. Tricuspid Valve Tricuspid valve is grossly normal in structure and function. Trace tricuspid regurgitation. There is insufficient TR jet to estimate RVSP. Pulmonic Valve The pulmonary valve is normal in structure. Trace pulmonic regurgitation. Great Vessels The aortic root is normal in size. IVC is normal in size and collapses >50% with inspiration. Pericardium There is no pericardial effusion. Other Information Study Quality: Fair Conclusion Normal biventricular systolic function. Mild RV dilation. No significant valvular stenosis or regurgitation. Electronically signed by : Halina Mayen MD 01/16/2025 22:53:36
== END 2025-01-16 23:59 | disposition home or self-care (01) ==
LOC: RT 13:21
PROVIDERS: PCP Family Medicine; Visit Provider Nurse Practitioner Family
DX: I25.10 Atherosclerotic heart disease of native coronary artery without angina pectoris (principal)
CPT/HCPCS: 93306

== ENCOUNTER 2025-07-02 18:03 | Emergency (ER) | payer BC, SELFPAY ==
[2025-07-02] VITALS (20 sets, daily range): BP systolic 123–168; BP diastolic 74–89; PULSE 81–92; RESP 16–20; TEMP 36.8; O2SAT 97–100; BMI 29.2
--- OUTSIDE RECORDS SUMMARY | 2025-07-02 18:16 | XMS_ITS | Clinical Summary ---
Author Organization [facility] [place] [id number] Care Team Providers Care Food Service Cashier Name Role Phone Pcp, No Primary Care Provider Unavailabl e Allergies No known active allergies Medications chlorhexidine (Peridex) 0.12 % solution Use 15 mL in the mouth or throat if needed for wound care. 120 mL 01/01/2024 Active Social History Tobacco Use Types Packs/Day Years Used Date Smoking Tobacco: Never Assessed Sex and Gender Information Value Date Recorded Sex Assigned at Not on file Legal Sex Male 8:25 PM EDT Gender Identity Not on file Sexual Orientation Not on file Last Filed Vital Signs Vital Sign Reading Time Taken Comments Blood Pressure 135/82 01/18/2024 10:53 AM EDT Pulse 83 01/18/2024 10:53 AM EDT Temperature 36.7 C (98 F) 01/01/2024 1:26 PM EDT Respiratory Rate 18 01/01/2024 1:26 PM EDT Oxygen Saturation 97% 01/02/2024 10:40 AM EDT Inhaled Oxygen Concentration - - Weight 96.3 kg (212 lb 4.9 oz) 01/02/2024 10:40 AM EDT Height 177.8 cm (5' 10 ) 01/02/2024 10:40 AM EDT Body Mass Index 30.46 01/02/2024 10:40 AM EDT Plan of Treatment Health Maintenance Due Date Last Done Comments Dental Oral Exam 1965 Dental Prophylaxis 1965 Dental X-Ray: Bitewings 1965 Dental X-Ray: Full Mouth 1965 [facility]-Depression Screening 1965 [facility]-HIV Screening 1965 [facility]-Hepatitis C Screening 1965 [facility]-/Child/Adol SDOH Screenings 1965 [facility]- SDOH Screenings 1981 [facility]-Adult SDOH Screenings 1981 [facility]-DTaP,Tdap,and Td Vaccine s (1 - Tdap) 1982 CT Colonography 2008 Colonoscopy 2008 FIT-DNA 2008 FIT 2008 FOBT 2008 Sigmoidoscopy 2008 [facility]-Colorectal Cancer Screening 2008 [facility]-Pneumococcal Vaccine: 50 + Years (1 of 1 - PCV) 2013 [facility]-Zoster Vaccines (1 of 2) 2013 [facility]-RMQCG-75 Vaccine (3 - 2024- season) 2025 09/10/2021, 12/03/2020 [facility]-Influenza Vaccine (#1) 2025 [facility]-RSV Vaccine: 60+ Years o r (1 - 1-dose 75+ series) 2038 [facility]-Obesity Intervention Completed 024, 01/02/2024 HPV Vaccines Aged Out No longer eligi ble based on patient's age to complete this topic [facility]-HIB Vaccines Aged Out No longer e ligible based on patient's age to complete this topic [facility]-Hepatitis A Vaccines Aged Out No longer eligible based on patient's age to complete this topic [facility]-IPV Vaccines Aged Out No longer e ligible based on patient's age to complete this topic [facility]-Rotavirus Vaccines Aged Out No lo nger eligible based on patient's age to complete this topic Insurance [employer] Care Teams Food Service Cashier Relationship Specialty Start Date End Date Pcp, [facility] [address] [place] [address] PCP - General Family Medicine 01/01/24
[2025-07-02 18:25] LABS: Microscopic, Urine URINE MICROSCOPIC (MICROSCOPIC)
[2025-07-02 18:28] LABS: Bilirubin,Urine Negative (Negative); Color,Urine YELLOW (Yellow); Glucose,Urine (UA) 3+ (Negative); Ketones,Urine Negative (Negative); Leukocyte Esterase,Urine Negative (Negative); PH,Urine 7.0 (5.0-8.5); Protein,Urine Negative (Negative); Specific Gravity, Urine 1.015 (1.005-1.030); Urobilinogen,Urine 2.0 EU/dl (0.2)
--- NOTE | 2025-07-02 18:34 | CT_ITS ---
PROCEDURE INFORMATION: Exam: CT Abdomen And Pelvis Without Contrast Exam date and time: 07/02/2025 7:22 PM Age: 60 years old Clinical indication: Other: Flank pain, eval for nephrolithiasis TECHNIQUE: Imaging protocol: Computed tomography of the abdomen and pelvis without contrast. Radiation optimization: All CT scans at this facility use at least one of these dose optimization techniques: automated exposure control; mA and/or kV adjustment per patient size (includes targeted exams where dose is matched to clinical indication); or iterative reconstruction. COMPARISON: CT ABDOMEN PELVIS WO CON 12/08/2022 11:05 PM FINDINGS: Liver: Normal. No mass. Gallbladder and biliary ducts: Cholecystectomy Pancreas: Normal. No ductal dilation. Spleen: Normal. No splenomegaly. Adrenal glands: Normal. No mass. Kidneys and ureters: Normal. No hydronephrosis. Stomach and bowel: Unremarkable. No obstruction. No mucosal thickening. Appendix: No evidence of appendicitis. Intraperitoneal space: Unremarkable. No free air. No significant fluid collection. Vasculature: Unremarkable. No abdominal aortic aneurysm. Lymph nodes: Unremarkable. No enlarged lymph nodes. Urinary bladder: Unremarkable as visualized. Reproductive: Unremarkable as visualized. Bones/joints: Unremarkable. No acute fracture. Soft tissues: Unremarkable. IMPRESSION: No acute findings. The
--- NOTE | 2025-07-02 18:35 | ECG_ITS ---
APPROVED REPORT Exam: Resting ECG HR:76 bpm ECG Measurements Heart Rate 76 AXES AR 144 P 62 QRSd 90 QRS 66 QT 376 T 39 QTc 407 Conclusion SINUS RHYTHM NORMAL ECG UNCONFIRMED REPORT Electronically signed by : KEI ZHAO, 07/02/2025 23:49:05
--- NOTE | 2025-07-02 18:36 | ED_ITS ---
<Statement entered by Martin Patel MD - 07/03/25 02:24> I was consulted by the PAU, and we discussed the complexity of the problems being addressed. I approve the treatment and management plan for this patient's care in the emergency department, thus performing a substantive portion of the medical decision making. Martin Patel MD Discharge Plan Disposition Patient Disposition: Home, Self-Care Prescriptions Prescriptions: No Action azelastine 137 mcg (0.1 %) spray,non-aerosol 1 spray intranasal ONCE Rx Instructions: administer into each nostril Ozempic 2 mg/dose (8 mg/3 mL) pen injector 2 mg SQ QWEEK Patient Comments: INJECT 2MG UNDER THE SKIN ONCE WEEKLY amoxicillin-pot clavulanate 875-125 mg tablet 1 tab PO BID 10 Days Qty: 20 0RF guaifenesin 1,200 mg tablet extended release 12hr 1,200 mg PO BID Qty: 20 0RF Jardiance 25 mg tablet 25 mg PO DAILY Patient Comments: TAKE 1 TABLET BY MOUTH EVERY DAY IN THE MORNING montelukast [Singulair] 10 mg tablet 10 mg PO HS Patient Comments: TAKE 1 TABLET BY MOUTH EVERY DAY diclofenac sodium 1 % gel 4 g topical TID PRN (Reason: n/a) Patient Comments: APPLY 4GM TOPICALLY TO ANKLE AND KNEE 3 TIMES DAILY ezetimibe [Zetia] 10 mg tablet 10 mg PO DAILY Qty: 90 3RF prasugrel HCl 10 mg tablet See Rx Instructions .ROUTE .COMPLEX Qty: 90 1RF Dose Instruction: TAKE ONE TABLET BY MOUTH EVERY DAY Rx Instructions: TAKE ONE TABLET BY MOUTH EVERY DAY ranolazine 500 mg tablet extended release 12 hr 500 mg PO BID Qty: 180 1RF Rx Instructions: TAKE ONE TABLET BY MOUTH TWICE DAILY aspirin 81 MG tablet,delayed release (DR/EC) 81 mg PO DAILY bupropion HCl 75 MG tablet 75 mg PO DAILY fluticasone propionate [Flonase Allergy Relief] 50 mcg/actuation spray,suspension 1 spray INTRANASAL DAILY Patient Comments: INHALE 1 SPRAY INTO EACH NOSTRIL ONCE DAILY rabeprazole [AcipHex] 20 mg tablet,delayed release (DR/EC) 20 mg PO HS Patient Comments: TAKE 1 TABLET BY MOUTH EVERY DAY famotidine [Pepcid] 40 mg tablet 40 mg PO DAILY Patient Comments: TAKE 1 TABLET BY MOUTH EVERY DAY AT BEDTIME losartan [Cozaar] 25 mg tablet 25 mg PO DAILY Patient Comments: TAKE 1 TABLET BY MOUTH EVERY DAY metformin 1,000 mg tablet 1,000 mg PO BIDWMEAL Claritin-D 24 Hour 10-240 mg Tablet Extended Release 24 Hr 1 tab PO DAILY glipizide [Glucotrol XL] 10 mg tablet extended release 24hr 10 mg PO HS atorvastatin 40 mg Tablet 40 mg PO HS Qty: 30 4RF carvedilol 3.125 mg Tablet 3.125 mg PO BID Qty: 60 4RF Referrals Follow up/Referrals: Kevin Jimenez MD [Primary Care Provider, Medical] - See instructions Activity Restrictions/Add. Instructions Additional Instructions/Restrictions: Thank you for allowing us to care for you today. Fortunately your workup is reassuring. Your cardiac enzymes are not elevated. Laboratory workup does not suggest any source of infection. Your abdominal CT scan is normal. You may take Tylenol and ibuprofen as needed for pain. If any symptoms are worsening, you should be reevaluated by your primary care provider. Clinical Impressions Clinical Impression: Bilateral flank pain Instructions Patient Instructions: DI for Flank Pain Print Language Print Language: Hebrew Discharge ED Provider: Martin Patel General Adult HPI General Chief complaint: PAIN Stated complaint: back pain Time Seen by Provider: 07/02/25 18:29 Mode of Arrival: Ambulatory Source of Information: Patient Description of Symptoms (Recalled from ER Triage Doc. by RN): patient presents to the ED for bilateral lower back pain that wraps into the front of his abdomen. patient stated this staretd yesterday but has worsened today. Patient mentioned he has a history of pancreatitis and this is presenting similar to previous attacks. History of Present Illness HPI narrative: This is a 60-year-old male with a history of CAD, GERD, STEMI, HLD, HTN, T2DM, pancreatitis who presents to the emergency department today for evaluation of bilateral flank pain. Pain first began yesterday as right sided flank pain that radiates into the abdomen. Pain is on both sides and is intermittent. It has become more constant throughout the day today. Associated with this is some nausea but no vomiting or diarrhea. He has not noticed any blood in his urine. He does not have a history of kidney stone. No pain with urination or decreased urination. Patient reports pain seems to improve after he urinates. Patient's greatest concern is 2 years ago when he had a STEMI his pain presented as back pain. Patient notes he had left arm pain at that time as well which he does not have on this presentation. No recent fever or chills. Related Data Home Medications ?Medication ?Instructions ?Recorded ?Confirmed aspirin 81 mg tablet,delayed 81 mg PO DAILY heart heal th 05/23/18 03/18/25 release bupropion HCl 75 mg tablet 75 mg PO DAILY mood 9 03/18/25 empagliflozin 25 mg tablet 25 mg PO DAILY Diabetes 05/1703/18/25 (Jardiance) montelukast 10 mg tablet 10 mg PO HS Allergy symptoms 05/03/22 03/18/25 (Singulair) fluticasone propionate 50 1 spray intranasal DAILY All ergy 05/29/22 03/18/25 mcg/actuation nasal symptoms spray,suspension (Flonase Allergy Relief) famotidine 40 mg tablet (Pepcid) 40 mg PO DAILY Acid R eflux 07/21/23 03/18/25 glipizide 10 mg tablet, extended 10 mg PO HS Diabetes 07/21/23 03/18/25 release 24 hr (Glucotrol XL) loratadine-pseudoephedrine ER 10 1 tab PO DAILY allerg ies 07/21/23 03/18/25 mg-240 mg tablet,extended [id number] (Claritin-D 24 Hour) losartan 25 mg tablet (Cozaar) 25 mg PO DAILY High Blo od Pressure 07/21/23 03/18/25 metformin 1,000 mg tablet 1,000 mg PO BIDWMEAL Diabete s 07/21/23 03/18/25 rabeprazole 20 mg tablet,delayed 20 mg PO HS Acid Refl ux 07/21/23 03/18/25 release (AcipHex) diclofenac sodium 1 % topical gel 4 g topical TID PRN n/a 09/27/23 03/18/25 azelastine 137 mcg (0.1 %) nasal 1 spray intranasal ON CE 05/09/24 03/18/25 spray semaglutide 2 mg/dose (8 mg/3 mL) 2 mg SQ QWEEK 03/18/25 subcutaneous pen injector (Ozempic) Previous Rx's ?Medication ?Instructions ?Recorded atorvastatin 40 mg tablet 40 mg PO HS #30 tabs 3 carvedilol 3.125 mg tablet 3.125 mg PO BID #60 tabs ezetimibe 10 mg tablet (Zetia) 10 mg PO DAILY #90 tabs 10/16/24 prasugrel HCl 10 mg tablet See Rx Instructions .Route 01/23/25 .COMPLEX #90 tabs amoxicillin 875 mg-potassium 1 tab PO BID 10 days #20 tabs 03/18/25 clavulanate 125 mg tablet guaifenesin 1,200 mg tablet, 1,200 mg PO BID #20 tabs 03/18/25 extended release 12 hr ranolazine 500 mg tablet,extended 500 mg PO BID #180 t abs 03/27/25 release,12 hr Allergies Allergy/AdvReac Type Severity Reaction Status Date / Time metoclopramide (From Reglan) Allergy Severe Chest Pain Verified 03/18/25 13:15 Poultry Allergy Severe Swelling Verified 03/18/25 13:15 of Lip/Tongue/Throat chicken derived Allergy Anaphylaxis Verified 03/18/25 13:15 [facility] Disclaimer: The information contained in this section may have been updated after the patient was seen, as this information can be updated by other users. Medical History Pre-operative cardiovascular examination History of NM (myocardial infarction) Serous otitis media Hearing loss, bilateral Impacted cerumen Chronic eustachian tube dysfunction Impacted cerumen of left ear Foreign body in left ear Coronary artery disease Barretts esophagus GERD (gastroesophageal reflux disease) Eustachian tube dysfunction Allergic rhinitis Recurrent serous otitis media HLD (hyperlipidemia) HTN (hypertension) Type 2 diabetes mellitus Mesenteric panniculitis Bile reflux gastritis Pancreatitis Helicobacter pylori (H. pylori) infection Hyperlipidemia Surgical History Status post myringotomy with insertion of tube Tubes are still functioning in good position Stented coronary artery Hx laparoscopic cholecystectomy History of tonsillectomy Family History Other Cancer Coronary artery disease Diabetes Heart attack Social History Smoking Status: Never smoker alcohol intake: never substance use type: denies use current occupational status: employed and other Travel in the last 8 weeks?: None household members: spouse housing: house caffeine: Yes Have you lived/traveled outside [place] in past 30 days?: No Contact w/someone who lives/traveled outside [place] past 30 days?: No Exposure to someone with infectious disease in past 14 days?: No Do you have a fever (greater than 100.4 F or 38 C)?: No Have you tested positive for COVID-19?: No Exposed to someone with COVID-19 in past 14 days?: No Do you have a sore throat?: No Do you have a cough?: No Do you have any weakness?: No Do you have any diarrhea?: No Are you experiencing any unusual bleeding?: No Do you have any muscle aches/pain?: No Do you have any abdominal pain?: No Are you experiencing loss of taste or smell?: No Other Medical History Have you received the Flu Vaccine for this season: No Have you received the Pneumonia Vaccine: No ROS Obtained: Yes Systems reviewed as appropriate & no additional complaints except as documented Physical Exam General General appearance: alert and in no apparent distress Head Head exam: atraumatic and normocephalic Neck Neck exam: Present full ROM Respiratory Respiratory exam: Present normal lung sounds bilaterally; Absent respiratory distress Cardiovascular Cardiovascular exam: Present regular rate and normal rhythm Abdominal Exam Abdominal exam: Present soft; Absent distention, tenderness, guarding or rebound Comment: The abdomen is soft, nondistended, nontender to palpation. There is no CVA tenderness. Neurological Exam Neurological exam: Present alert and oriented X3 Medical Decision Making Medical Records Screening: Per USPSTF and CDC recommendations, given the prevalence of disease in our region, it is our hospital?s policy to screen for HIV and viral Hepatitis for all patients aged 18 and over and those with ongoing risk factors. Romero Inquiry Pt receiving controlled substance: No Vital Signs: 07/02/25 18:06 07/02/25 19:00 07/02/25 19:15 Temperature 98.2 F Temperature Source Oral Pulse Rate 90 Pulse Rate [Right Radial] 81 Respiratory Rate 20 Blood Pressure 123/80 Blood Pressure [Right Arm] 168/89 H Blood Pressure Mean 89 Blood Pressure Mean [Right Arm] 115 Blood Pressure Source [Right Arm] Automatic Cuff Blood Pressure Position [Right Arm] Sitting 02 Sat by Pulse Oximetry 100 97 Oxygen Delivery Method Room Air Lab Data Lab Results 07/02/25 18:21: Urine Color Yellow, Urine Appearance Clear, Urine pH 7.0, Ur Specific [place] 1.015, Urine Protein Negative, Urine Glucose (UA) 3+, Urine Ketones Negative, Urine Blood Negative, Urine Nitrate Negative, Urine Bilirubin Negative, Urine Urobilinogen 2.0, Ur Leukocyte Esterase Negative, Urine RBC Occasional, Urine WBC Occasional, Ur Squamous Epith Cells Occasional, Urine Bacteria Trace 07/02/25 18:25: WBC 10.1, RBC 5.63, Hgb 16.0, Hct 48.2, MCV 85.6, MCH 28.4, MCHC 33.2, RDW 13.7, Plt Count 280, MPV 9.2, Neut % (Auto) 61.0, Lymph % (Auto) 23.8, [place] % (Auto) 11.7 H, Eos % (Auto) 2.8, Baso % (Auto) 0.4, Neut # (Auto) 6.1, Lymph # (Auto) 2.4, [place] # (Auto) 1.2 H, Eos # (Auto) 0.3, Baso # (Auto) 0.0, Sodium 140, Potassium 4.1, Chloride 101, Carbon Dioxide 28, Anion Gap 15.1 H, BUN 18, Creatinine 0.80, Estimated Creat Clear 100, Estimated GFR 98, Est GFR ( Amer) 119, Glucose 66 L, Calcium 9.4, Total Bilirubin 0.8, AST 22, ALT 24, Alkaline Phosphatase 112, Troponin I < 0.01, Total Protein 6.8, Albumin 4.4, Globulin 2.4, Albumin/Globulin Ratio 1.8, Lipase 254 07/02/25 18:25 07/02/25 18:25 Orders (Tests/Meds): ORDERS Category Date Time Status CT abdomen pelvis wo con Stat Cat Scan 07/02/25 18:34 Completed CBC w/Auto Diff [Complete Blood Count Auto Diff] Stat Lab 07/02/25 18:25 Completed CMP [Comprehensive Metabolic Panel] Stat Lab 07/02/25 18:25 Completed Lipase Stat Lab 07/02/25 18:25 Completed Trop I [Troponin I] Stat Lab 07/02/25 18:25 Completed Troponin I Q3H Lab 07/02/25 21:45 Ordered Troponin I Q3H Lab 07/03/25 00:45 Ordered Urinalysis and Microscopic Stat Lab 07/02/25 18:21 Completed Medical Decision Narrative: In summary, this is a 60-year-old male presenting to the emergency department today with bilateral flank pain that radiates into the abdomen. Pain first began yesterday as right sided flank pain that radiated to the abdomen. Today the left side began to hurt as well. No pain or blood in the urine. Patient denies any vomiting but has been nauseous. On exam patient is well-appearing and in no acute distress. Sitting comfortably on hospital stretcher. Vital signs normal. The abdomen is soft, nondistended, and nontender to palpation. There is no CVA tenderness palpation though patient reports that being the site of pain when he does have pain flares. Respiratory rate and effort are normal. Lungs are clear to auscultation bilaterally with adventitious sounds. Differential diagnoses include but are not limited to nephrolithiasis, ureterolithiasis, urinary tract infection, infected stone, pancreatitis, GERD, muscle strain, ACS, among others. We will obtain laboratory workup and imaging. Will obtain CBC, CMP, lipase, urinalysis, and CT of the abdomen and pelvis without IV contrast. EKG normal sinus rhythm. CBC and CMP nonactionable. Normal liver function. Troponin negative. Lipase normal. Urinalysis without evidence of infection. No blood in the urine. CT of the abdomen and pelvis normal without any acute abnormalities. On reassessment, patient remains well-appearing and in no acute distress. The abdomen remains soft, nondistended, and nontender to palpation. Exact etiology of flank pain uncertain at this time, though could be musculoskeletal in nature. No evidence of emergent etiology at this time indicating further workup. Patient is appropriate for safe discharge home. He will follow-up with his primary care provider this week for reevaluation or will return to the emergency department if any symptoms acutely worsen. Patient feels comfortable with this treatment and discharge plan and all questions have been answered. Critical Care Critical Care Time Critical Care Time: No
[2025-07-02 18:56] LABS: Hematocrit 48.2 % (42.0-52.0); Hemoglobin 16.0 g/dL (14.1-18.0); Immature Granulocytes % 0.3 %; Mean Corpuscular HGB Conc 33.2 g/dL (31.8-35.4); Mean Corpuscular Hemoglobin 28.4 pg (27.0-31.2); Mean Corpuscular Volume 85.6 fl (80-94); Nucleated Red Blood Cells % 0 %; Platelet Count 280 K/mm3 (142-424); Red Blood Count 5.63 M/mm3 (4.60-6.20); Red Cell Distribution Width-SD 42.5 fL; White Blood Count 10.1 K/mm3 (4.8-10.8)
[2025-07-02 18:57] LABS: Alanine Aminotransferase 24 U/L (12-78); Albumin Level 4.4 g/dl (3.5-5.0); Albumin/Globulin Ratio 1.8 (1.1-1.8); Alkaline Phosphatase 112 U/L (38-126); Anion Gap 15.1 mEq/L (5-15); Aspartate Amino Transferase 22 U/L (17-59); Bilirubin,Total 0.8 mg/dl (0.2-1.3); Blood Urea Nitrogen 18 mg/dl (9-20); Calcium 9.4 mg/dl (8.4-10.2); Carbon Dioxide 28 mmol/L (22.0-30.0); Chloride 101 mmol/L (98-107); Creatinine Clearance Estimated 100 mL/min (50-200); Creatinine,Serum 0.80 mg/dl (0.66-1.25); Estimated Glomerular Filt Rate 98 ml/min (>60); GFR (African American) 119 ML/MIN (>60); Globulin 2.4 g/dL (1.3-3.2); Glucose 66 mg/dl (74-100); Lipase 254 U/L (23-300); Potassium 4.1 mmoL/L (3.5-5.1); Sodium 140 mmol/L (136-145); Total Protein,Serum 6.8 g/dl (6.3-8.2)
[2025-07-02 19:13] LABS: Troponin I < 0.01 ng/ml (0.00-0.034)
[2025-07-02 20:08] LABS: Bacteria,Urine Trace /lpf; RBC,Urine Occasional #/hpf (0-3); Squamous Epithelial Cell,Urine Occasional #/hpf (0-5); WBC,Urine Occasional #/hpf (0-3)
== END 2025-07-02 21:32 | disposition home or self-care (01) ==
PROVIDERS: Physician Assistant; Emergency Provider Student in an Organized Health Care Education/Training Program; PCP Family Medicine
DX: R11.0 Nausea (principal); R10.A3 Flank pain, bilateral; M54.50 Low back pain, unspecified
CPT/HCPCS: 74176; 80053; 81001; 83690; 84484; 85025; 93005; 99284

== ENCOUNTER 2025-07-25 11:52 | Outpatient (CLI) | payer BC, SELFPAY ==
--- OUTSIDE RECORDS SUMMARY | 2024-12-04 12:00 | XMS_ITS ---
Author Organization [facility] Address [address] [place] [id number] Care Team Providers Care Assistant Principal Name Role Phone Jen Jimenez Primary Care Provider [phone] Allergies Allergen (clinical drug ingredient) Drug/Non Drug Allergy documented on EMR Reaction Allergy Type Onset Date Status chicken allergenic extract CHICKEN (uncoded) lips and gums swell Allergy Active metoclopramide Reglan chest pain Drug Allergy A ctive Reason For Referral Reason Established patient. Needs EGD for hx of Price's esophagus Diagnosis 1 Price's esophagus determined by endoscopy (K22.70) Referral Organization [facility] Referring Provider First Name Jen Early Referring Provider Last Name Barbara Referring Provider Speciality Family [facility] ctice Referred Provider DAMIR LAZAR Referred Provider Specialty Gastroentero logy General Notes Sarah Garcia 2024 12:26:45 PM > 12/18/2024 at 10:15am Referral Priority Routine REASON FOR VISIT Check Up and Refills, Needs labs with PSA, colon cancer screening, diabetic eye exam, Tdap, & shingles vaccine Medications Medication SIG (Take, Route, Frequency, Duration) Notes Start Date End Date Status Diclofenac Sodium 1 % apply 4 gm to ankl e and knee applied topically Three times a day 10/21/2022 Active Sildenafil Citrate 50 MG 1 tab(s) orally as directed 10/14/2022 Active Fluticasone Propionate 50 MCG/ACT SHAKE LIQUID AND USE 1 SPRAY IN EACH NOSTRIL DAILY; Duration: 30 Active Prasugrel HCl 10 MG as directed Orally Active Ondansetron HCl 4 MG TAKE ONE TABLET BY MOUTH EVERY 8 HOURS Active buPROPion HCl 75 MG 1 tablet Orally Twic e a day Active Montelukast Sodium 10 MG 1 tablet Orally Once a day Active Carvedilol 3.125 MG 1 tablet with food O rally Twice a day Active Jardiance 25 MG 1 tablet Orally Once a day Active Ozempic (2 MG/DOSE) 8 MG/3ML 2 mg Subcutaneous once a week 12/04/2024 Active metFORMIN HCl 1000 MG 1 tablet with a me al Orally twice a day Active glipiZIDE ER 10 MG 1 tablet with food O rally Once a day Active RABEprazole Sodium 20 MG 1 tablet after a meal Orally Once a day Active Losartan Potassium 25 MG 1 tablet Orally Once a day Active Atorvastatin Calcium 40 MG 1 tablet Oral ly Once a day; Duration: 15 day(s) Active Famotidine 40 MG 1 tablet at bedtime as needed Orally Once a day Active Vital Signs Blood pressure systolic 128 mm Hg 12/05/19 25 Blood pressure diastolic 80 mm Hg 025 Heart Rate 105 /min 12/04/2024 Height 69 in 12/04/2024 Weight 212.6 lbs 12/04/2024 BMI 31.39 kg/m2 12/04/2024 Encounters Encounter Location Date Provider Diagnosis [facility] [address] [phone] 12/04/2024 Jen Jimenez Price's esophagus determined by endoscopy K22.70 ; Type 2 diabetes mellitus with other circulatory complication, without long-term current use of insulin E11.59 ; Essential (primary) hypertension I10 ; ASCVD (arteriosclerotic cardiovascular disease) I25.10 ; Dyslipidemia E78.5 ; Seasonal allergies J30.2 and Screening for prostate cancer Z12.5 Assessments Encounter Date Diagnosis (ICD Code) Assessment Notes Treatment Notes Treatment Clinical Notes Section Notes 12/04/2024 Price's esophagus determined by endoscopy (ICD-10 - K22.70) 12/04/2024 Type 2 diabetes mellitus with other circulatory complication, without long-term current use of insulin (ICD-10 - E11.59) 12/04/2024 Essential (primary) hypertension (ICD-10 - I10) 12/04/2024 ASCVD (arteriosclerotic cardiovascular disease) (ICD-10 - I25.10) 12/04/2024 Dyslipidemia (ICD-10 - E78.5) 12/04/2024 Seasonal allergies (ICD-10 - J30.2) 12/04/2024 Screening for prostate cancer (ICD-10 - Z12.5) Plan Of Treatment Medication Medication Name Sig Start Date Stop Date Notes buPROPion HCl 75 MG 1 tablet Orally Twice a day Montelukast Sodium 10 MG 1 tablet Orally Once a day Carvedilol 3.125 MG 1 tablet with food O rally Twice a day Jardiance 25 MG 1 tablet Orally Once a day Ozempic (2 MG/DOSE) 8 MG/3ML 2 mg Subcutaneous once a week 12/04/2024 Ozempic (1 MG/DOSE) 4 MG/3ML ADMINISTER 1MG UNDER THE SKIN ONCE WEEKLY metFORMIN HCl 1000 MG 1 tablet with a me al Orally twice a day glipiZIDE ER 10 MG 1 tablet with food O rally Once a day RABEprazole Sodium 20 MG 1 tablet after a meal Orally Once a day Losartan Potassium 25 MG 1 tablet Orally Once a day Famotidine 40 MG 1 tablet at bedtime as needed Orally Once a day Pending Test Test Name Order Date H-Microalbumine/Creatinine 12/04/2024 H-Lipid Panel 12/04/2024 H-CMP 12/04/2024 H-Glycohemoglobin A1C 12/04/2024 H-PSA 12/04/2024 Referrals Referral Date Details 12/04/2024 12/04/2024, Mishel samuel patient. Needs EGD for hx of Price's esophagus , DAMIR LAZAR Next Appt Details Follow Up: 6 Months, Reason: Progress Notes * Alberto CEJADOB:1965 (60 yo M)Acc No.[id number]:12/04/2024 Progress Notes Patient: Keith Alberto GONZALEZ Provider: Jen Jimenez M.D. :1965 A ge:59 Y S ex:Male Date:12/04/2024 Address:[address] [place] [address], [place] [id number] Subjective: * Chief Complaints: * 1 . Check Up and Refills. 2. Needs labs with PSA, colon cancer screening, diabetic eye exam, Tdap, & shingles vaccine. * HPI: H PI: 59 year old male presents with c/o Patient is here today for?Pt is here today for a check up with refills. . C ardiology: He continues to follow with cardiology and has had a stable course. No change in his medical regimen. Denies chest pain or increased shortness of breath. No swelling. E ndocrinology: He is tolerating the current dose of Ozempic with no side effects. Blood sugars have been well-controlled but his weight loss has plateaued. He would like to increase the dose of Ozempic. G astroenterology: He has a history of Price's esophagus. It has been more than 3 years since his last EGD. He denies dysphagia. * ROS: A LLERGY: no C ough. n o R unny nose. G ASTROENTEROLOGY: no V omiting. n o D iarrhea. U ROLOGY: no D ifficulty urinating. n o B lood in urine. * Medical History: T ype 2 DM, Hyperlipidemia, Barretts Esophagus, Vitamin D Deficiency, Hypertension, Pancreatitis, ASCVD/ STEMI 06/2023/ [facility]. * Surgical History: T onsillectomy 1969, Lap julia -Dr Lacy 12/13/2018, Heart cath/ stent x 1 OM 07/21/23. * Hospitalization/Major Diagno stic Procedure: P ancreatitis- [facility] 2005, Pancreatitis- [facility] 05/2018, Stomach Pain- [facility] ER 10/25/2018, Diarrhea- [facility] ER 12/18/2018, Pancreatitis- [facility] 05/29/2022, STEMI - [facility] 07/21/2023. * Family History: F ather: 46 yrs, Heart Attack. M other: 54 yrs, Lung Cancer, Breast Cancer. 1 brother(s) , 2 sister(s) . 1 son(s) . . Sister and brother with diabetes. * Social History: C URRENT TOBACCO USE S moking Status: Patient does NOT smoke. C affeine: yes, frequency: coffee qam. Home smoke detector use: yes. Marital Status: . Alcohol: none. * Medications: T aking Sildenafil Citrate 50 MG Tablet 1 tab(s) orally as directed , Taking Diclofenac Sodium 1 % Gel apply 4 gm to ankle and knee applied topically Three times a day , Taking Prasugrel HCl 10 MG Tablet as directed Orally , Taking Ondansetron HCl 4 MG Tablet TAKE ONE TABLET BY MOUTH EVERY 8 HOURS , Taking Fluticasone Propionate 50 MCG/ACT Suspension SHAKE LIQUID AND USE 1 SPRAY IN EACH NOSTRIL DAILY , Taking Ozempic (1 MG/DOSE) 4 MG/3ML Solution Pen-injector ADMINISTER 1MG UNDER THE SKIN ONCE WEEKLY , Taking Atorvastatin Calcium 40 MG Tablet 1 tablet Orally Once a day , Taking Carvedilol 3.125 MG Tablet 1 tablet with food Orally Twice a day , Taking metFORMIN HCl 1000 MG Tablet 1 tablet with a meal Orally twice a day , Taking glipiZIDE ER 10 MG Tablet Extended Release 24 Hour 1 tablet with food Orally Once a day , Taking Losartan Potassium 25 MG Tablet 1 tablet Orally Once a day , Taking Jardiance 25 MG Tablet 1 tablet Orally Once a day , Taking Famotidine 40 MG Tablet 1 tablet at bedtime as needed Orally Once a day , Taking Montelukast Sodium 10 MG Tablet 1 tablet Orally Once a day , Taking buPROPion HCl 75 MG Tablet 1 tablet Orally Twice a day , Taking RABEprazole Sodium 20 MG Tablet Delayed Release 1 tablet after a meal Orally Once a day , Medication List reviewed and reconciled with the patient * Allergies: C HICKEN: lips and gums swell, Reglan: chest pain. Objective: * Vitals: W t:212.6, Temp:98.4, BP:128/80, HR:105, Nurse:arturo, Ht: 69, BMI:31.39. * Examination: C ardiology: General Appearance: p leasant, NAD. H EENT: u nremarkable. C arotid upstroke: n ormal, no bruits. H eart sounds: R RR, normal S1, S2.?Murmur, click , gallop: n one. L ungs: c lear, no rales or wheezes. E xtremities: n o leg edema. Assessment: * Assessment: 1. T ype 2 diabetes mellitus with other circulatory complication, without long-term current use of insulin - E11.59 (Primary) 2 . B arrett's esophagus determined by endoscopy - K22.70 3 . E ssential (primary) hypertension - I10 4 . A SCVD (arteriosclerotic cardiovascular disease) - I25.10 5 . D yslipidemia - E78.5? 6. S easonal allergies - J30.2 7 . S creening for prostate cancer - Z12.5 Plan: * Treatment: 2. B arrett's esophagus determined by endoscopy Refill Famotidine Tablet, 40 MG, 1 tablet at bedtime as needed, Orally, Once a day, 90, Refills 1;?Refill RABEprazole Sodium Tablet Delayed Release, 20 MG, 1 tablet after a meal, Orally, Once a day, 90, Refills 1. Referral To:DAMIR LAZAR Gastroenterology Reason:Established patient. Needs EGD for hx of Price's esophagus 3. E ssential (primary) hypertension Refill Losartan Potassium Tablet, 25 MG, 1 tablet, Orally, Once a day, 90, Refills 1. 4. A SCVD (arteriosclerotic cardiovascular disease) Refill Carvedilol Tablet, 3.125 MG, 1 tablet with food, Orally, Twice a day, 180, Refills 1. ? 5. S easonal allergies Refill Montelukast Sodium Tablet, 10 MG, 1 tablet, Orally, Once a day, 90, Refills 1. 6. O thers Refill buPROPion HCl Tablet, 75 MG, 1 tablet, Orally, Twice a day, 180, Refills 1. * Labs: * L ab: H-Lipid Panel L ab: H-PSA L ab: H-CMP L ab: H-Glycohemoglobin A1C L ab: H-Microalbumine/Creatinine * Procedure Codes: 3 074F SYST BP LT 130 MM HG, 3079F DIAST BP 80-89 MM HG * Follow Up: 6 Months * Images: Billing Information: * Visit Code: 86509 Office Visit, Est Pt., Level 4. * Procedure Codes: 3074F SYST BP LT 130 MM HG. 3079F DIAST BP 80-89 MM HG. * Electronic signature of Jen Jimenez MD on 07/25/2025 at 11:56 AM EDT Sign off status: Pending * Provider: Jen Jimenez M.D. Date: 0 12/04/2024 Generated for Christos dominguez/Shea/eTransmitting on: 1 11:56 AM EDT History and Physical Notes * HPI (History of Present Illness) Category Sub-Category Detail Notes Category Not es Endocrinology He is tolerati ng the current dose of Ozempic with no side effects. Blood sugars have been well-controlled but his weight loss has plateaued. He would like to increase the dose of Ozempic. Cardiology He continues to follow with cardiology and has had a stable course. No change in his medical regimen. Denies chest pain or increased shortness of breath. No swelling Gastroenterology He has a hi story of Price's esophagus. It has been more than 3 years since his last EGD. He denies dysphagia. HPI Patient is here toda y for Pt is here today for a check up with refills. Examination Category Sub-Category Detail Notes Category Not es Cardiology Lungs: clear, no rales or wheezes HEENT: unremarkable Heart sounds: RRR, normal S1, S2 Carotid upstroke: normal, no bruits Extremities: no leg edema Murmur, click , gallop: none General Appearance: pleasant, NAD Consultation Request Notes Referral Date Referring Provider Referred Provider Not es 12/04/2024 Jen Jimenez EARL Establish ed patient. Needs EGD for hx of Price's esophagus
--- NOTE | 2025-07-25 | CA_ITS ---
APPROVED REPORT Exam: Exercise Treadmill Technologist: Arianne Garsia Stress Nurse: Megan Negro Ht: 5 ft 10 in Wt: 211 lbs BSA: 2.14 m2 HR: 81 bpm BP: 138/79 mmHg Rhythm: NSR Indications: Z01.810, I10, E78.5 Medical History Medications: Aspirin, Atorvastatin, AcipHex, Azelastine, Bupropion HCI, Ranolazine ER, Ozempic, Carvedilol, Diclofenac Sodium 1%, Jardiance, Zetia, Pepcid, Flonase, Glipizide ER, Guaifenesin ER, Clairtin D, Losartan, Metformin, Montekulast, Prasugrel HCI. Stress Test Details Test: Exercise stress testing was performed using a Scott protocol. HR Resting HR: 81 bpm Max Heart Rate (APMHR): 158.643464 bpm Max HR Achieved: 124 bpm Target HR (85% APMHR): 134.256128 bpm % of APMHR: 78.48 Recovery HR: 103 bpm BP Resting BP: 138.0/79.0 mmHg Max BP: 170.0/92.0 mmHg Recovery BP: 159.0/81.0 mmHg ECG Resting ECG: Sinus Rhythm Clinical Stress Symptoms: Dyspnea Exercise duration: 6:11 min Highest Stage Achieved: III Exercise capacity: 7.4 METs Stress ECG Conclusion Max HR: 134 % of PM: 84% Max BP: 187/80 METs: 7.4 Test stopped due to: Dyspnea per Pt request. Symptoms: Dyspnea. Arrhythmias/Ectopy: PVC/PAC. ST-T Changes: 0.[address] segment depression. Electronically signed by : Halina Mayen MD 07/28/2025 16:16:45
--- OUTSIDE RECORDS SUMMARY | 2025-07-25 11:57 | XMS_ITS | Patient Health Record ---
Author Organization [facility] Address [address] [place] [id number] Care Team Providers Care Paper Twister Name Role Phone Jen Jimenez Primary Care Provider [phone] Ruba Sawyer [phone] Allergies Allergen (clinical drug ingredient) Drug/Non Drug Allergy documented on EMR Reaction Allergy Type Onset Date Status chicken allergenic extract CHICKEN (uncoded) lips and gums swell Allergy Active metoclopramide Reglan chest pain Drug Allergy A ctive Results Component Value Reference Range Notes H-Lipid Panel Reviewed date:12/21/2024 11:39:57 AM Interpretation: Performing Lab: Notes/Report: Patient Fasting? Y TRIG 128 30-150 mg/dl CHOL 88 140-200 mg/dl DLDL 37.95 100-129 mg/dL VLDL 26 0-40 mg/dL HDL 31 40-60 mg/dl CHLHDL 2.8 1-3.5 H-CMP Reviewed date:12/21/2024 11:39:57 AM Interpretation: Performing Lab: Notes/Report: NA 139 136-145 mmol/L K 4.2 3.5-5.1 mmoL/L CL 104 98-107 mmol/L CO2 32 22.0-30.0 mmol/L GAP 7.2 5-15 mEq/L BUN 21 9-20 mg/dl CREATT 0.80 0.66-1.25 mg/dl GFRAA 119 >60 ML/MIN EGFR 98 >60 ml/min GLU 103 74-100 mg/dl CA 10.0 8.4-10.2 mg/dl BILIT 0.6 0.2-1.3 mg/dl AST 18 17-59 U/L ALT 23 12-78 U/L TP 6.2 6.3-8.2 g/dl ALB 4.2 3.5-5.0 g/dl GLOB 2.0 1.3-3.2 g/dL AGRATIO 2.1 1.1-1.8 ALP 74 38-126 U/L H-Glycohemoglobin A1C Reviewed date:12/21/2024 11:39:57 AM Interpretation: Performing Lab: Notes/Report: HGBA1C 6.5 4.0-6.0 % < 6% Non-Diabetic Level < 7% Controlled Diabetic Level > 8% Poorly Controlled Diabetic Level H-PSA Reviewed date:12/21/2024 11:39:57 AM Interpretation: Performing Lab: Notes/Report: PSASC 3.0 0.0-4.0 ng/ml Reason For Referral Reason Established patient. Needs EGD for hx of Price's esophagus Diagnosis 1 Price's esophagus determined by endoscopy (K22.70) Referral Organization [facility] Referring Provider First Name Jen Early Referring Provider Last Name Barbara Referring Provider Speciality [facility] Robert wong Referred Provider DAMIR LAZAR Referred Provider Specialty Gastroentero logy General Notes Sarah Garcia 2024 12:26:45 PM > 12/18/2024 at 10:15am Referral Priority Routine Medications Medication SIG (Take, Route, Frequency, Duration) Notes Start Date End Date Status Sildenafil Citrate 50 MG 1 tab(s) orally as directed 10/14/2022 Active Fluticasone Propionate 50 MCG/ACT 1 spray each nostril Nasally Once a day; Duration: 30 days Active metFORMIN HCl 1000 MG 1 tablet with a me al Orally twice a day; Duration: 90 days Active Carvedilol 3.125 mg 1 tablet orally twic e a day; Duration: 30 days Active Atorvastatin Calcium 40 MG 1 tablet Orally Once a day; Duration: 30 days Due for appt Active buPROPion HCl 75 MG 1 tablet Orally Twic e a day Active Famotidine 40 MG 1 tablet at bedtime as needed Orally Once a day; Duration: 90 days Active Ozempic (2 MG/DOSE) 8 MG/3ML 2 mg Subcutaneous once a week; Duration: 28 days Active Jardiance 25 MG 1 tablet Orally Once a day; Duration: 30 days Active Ondansetron HCl 4 MG TAKE ONE TABLET BY MOUTH EVERY 8 HOURS 3 times a day; Duration: 30 days Pt will need appt before further refills Active RABEprazole Sodium 20 MG 1 tablet after a meal Orally Once a day; Duration: 90 days Active Diclofenac Sodium 1 % apply 4 gm to ankl e and knee applied topically Three times a day Pt will need appt before further refills 10/21/2022 Active glipiZIDE ER 10 MG 1 tablet with food Orally Once a day; Duration: 90 days Active Montelukast Sodium 10 MG 1 tablet Orally Once a day; Duration: 30 days Pt will need appt before further refills Active Losartan Potassium 25 MG 1 tablet Orally Once a day; Duration: 30 days Pt will need appt before further refills Active Prasugrel HCl 10 MG as directed Orally Active Immunizations Vaccine Route Administration Date Status Comme nts COVID 19 Pfizer Unknown 09/10/2021 Administered COVID 19 Lilliana Unknown 12/03/2020 Administered Problems Problem Type SNOMED Code ICD Code Onset Dates Problem Status W/U Status Risk Notes Problem Essential hypertension (91806240) Essential (primary) hypertension (I10) Active confirmed Problem Coronary arteriosclerosis (07932575) ASCVD (arteriosclerotic cardiovascular disease) (I25.10) Active confirmed Problem Seasonal allergy (312520695) Seasonal allergies (J30.2) Active confirmed Problem Male erectile disorder (233180139) Male erectile disorder (N52.9) Active confirmed Problem Diabetes mellitus uncontrolled (822268234) Uncontrolled diabetes mellitus (E11.65) Active confirmed Problem STEMI - ST elevation myocardial infarction (019812101) ST elevation myocardial infarction (STEMI), unspecified artery (I21.3) Active confirmed Problem Dyslipidemia (205125128) Dyslipidemia (E78.5) Active confirmed Problem Stented coronary artery (616028984) Stented coronary artery (Z95.5) Active confirmed Problem Peripheral circulatory disorder associated with diabetes mellitus (931531137) Type 2 diabetes mellitus with other circulatory complication, without long-term current use of insulin (E11.59) Active confirmed Problem Price's esophagus (510801886) Price's esophagus determined by endoscopy (K22.70) Active confirmed Problem History of excision of intestinal structure (889820136) History of laparoscopic cholecystectomy (Z90.49) Active confirmed Vital Signs Heart Rate 105 /min 12/04/2024 Blood pressure diastolic 80 mm Hg 12/04/2024 Height 69 in 12/04/2024 Blood pressure systolic 128 mm Hg 12/04/2024 Weight 212.6 lbs 12/04/2024 BMI 31.39 kg/m2 12/04/2024 Encounters Encounter Location Date Provider Diagnosis [facility] [address] [facility] [address] [place] [id number] 12/04/2024 R Sharath Barbara Price's esophagus determined by endoscopy K22.70 ; Type 2 diabetes mellitus with other circulatory complication, without long-term current use of insulin E11.59 ; Essential (primary) hypertension I10 ; ASCVD (arteriosclerotic cardiovascular disease) I25.10 ; Dyslipidemia E78.5 ; Seasonal allergies J30.2 and Screening for prostate cancer Z12.5 [facility] [address] [facility] [address] [place] [id number] 11/27/2024 R Sharath Barbara ASCVD (arteriosclero tic cardiovascular disease) I25.10 [facility] [address] [facility] [address] [place], [place] [id number] 12/21/2024 R Sharath Barbara [facility] [address] [facility] [address] [place], [place] [id number] 05/28/2025 R Sharath Barbara Type 2 diabetes rocael itus with other circulatory complication, without long-term current use of insulin E11.59 [facility] [address] [facility] [address] [place], [place] [id number] 05/31/2025 R Sharath Barbara [facility] [address] [facility] [address] [place], [place] [id number] 06/05/2025 R Sharath Barbara [facility] [address] [facility] [address] [place], [place] [id number] 06/11/2025 R Sharath Barbara [facility] [address] [facility] [address] [place], [place] [id number] 06/14/2025 R Sharath Barbara Type 2 diabetes rocael itus with other circulatory complication, without long-term current use of insulin E11.59 [facility] [address] [place], [place] [id number] 06/14/2025 Ruba Sawyer Seasonal allergies J 30.2 ; Essential (primary) hypertension I10 and Male erectile disorder N52.9 [facility] [address] [place] [id number] 06/14/2025 Ruba Sawyer Male erectile disord er N52.9 Assessments Encounter Date Diagnosis (ICD Code) Assessment Notes Treatment Notes Treatment Clinical Notes Section Notes 11/27/2024 ASCVD (arteriosclerotic cardiovascular disease) (ICD-10 - I25.10) 12/04/2024 Type 2 diabetes mellitus with other circulatory complication, without long-term current use of insulin (ICD-10 - E11.59) 12/04/2024 Price's esophagus determined by endoscopy (ICD-10 - K22.70) 05/28/2025 Type 2 diabetes mellitus with other circulatory complication, without long-term current use of insulin (ICD-10 - E11.59) 06/14/2025 Type 2 diabetes mellitus with other circulatory complication, without long-term current use of insulin (ICD-10 - E11.59) 06/14/2025 Seasonal allergies (ICD-10 - J30.2) 06/14/2025 Male erectile disorder (ICD-10 - N52.9) 06/14/2025 Essential (primary) hypertension (ICD-10 - I10) 12/04/2024 Essential (primary) hypertension (ICD-10 - I10) 12/04/2024 ASCVD (arteriosclerotic cardiovascular disease) (ICD-10 - I25.10) 06/14/2025 Male erectile disorder (ICD-10 - N52.9) 12/04/2024 Dyslipidemia (ICD-10 - E78.5) 12/04/2024 Seasonal allergies (ICD-10 - J30.2) 12/04/2024 Screening for prostate cancer (ICD-10 - Z12.5) Plan Of Treatment Pending Test Test Name Order Date Lipid Profile 05/19/2021 Glycohemoglobin (HbA1C) 05/19/2021 CMP 05/19/2021 Cologuard 08/20/2024 H-Microalbumine/Creatinine 12/04/2024 H-Lipid Panel 12/04/2024 H-CMP 12/04/2024 H-Glycohemoglobin A1C 12/04/2024 H-PSA 12/04/2024 Insurance Providers Payer Name Payer Address Payer Phone Subscriber Number Group Number Insured Name Patient Relationship to Insured Coverage Start Date Coverage End Date [employer] [address] [place] [address] [id number] Alberto Wolf Self - patient is the insured Medications Administered Medication Instructions Date of Administration Dosage Notes Depo- Medrol 40 mg/ml 12/26/2018 1.5 mL Medical (General) History Medical History History ICD Code Type 2 DM Hyperlipidemia Barretts Esophagus Vitamin D Deficiency Hypertension Pancreatitis ASCVD/ STEMI 06/2023/ [facility] Surgical History Surgery Date(Month/Year) Tonsillectomy 1970 Lap julia -Dr Lacy 12/13/2018 Heart cath/ stent x 1 OM 07/21/23 Hospitalization History Reason Date(Month/Year) STEMI - [facility] 07/21/2023 Pancreatitis- [facility] 05/29/2022 Stomach Pain- [facility] ER 10/25/2018 Diarrhea- [facility] ER 12/18/2018 Pancreatitis- [facility] 2006 Pancreatitis- [facility] 05/2018
--- OUTSIDE RECORDS SUMMARY | 2025-07-25 11:57 | XMS_ITS | Clinical Summary ---
Author Organization [facility] [place] [id number] Care Team Providers Care Marketing Co Op Name Role Phone Pcp, No Primary Care [...] [facility]-HIV Screening 1963 [facility]-Hepatitis C Screening 1963 [facility]-Infant/Child/Adol SDOH Screenings 1963 [facility]- SDOH Screenings 1981 [facility]-Adult SDOH Screenings 1981 [facility]-DTaP,Tdap,and Td Vaccine s (1 - Tdap) 1982 CT Colonography 2008 Colonoscopy 2008 FIT-DNA 2008 FIT 2008 FOBT 2008 Sigmoidoscopy 2008 [facility]-Colorectal Cancer Screening 2008 [facility]-Pneumococcal Vaccine: 50 + Years (1 of 1 - PCV) 2013 [facility]-Zoster Vaccines (1 of 2) 2013 [id number] Vaccine (3 - 2024- season) 2025 09/10/2021, [...] topic Insurance [employer] Care Teams Marketing Co Op Relationship Specialty Start Date End Date Pcp, [facility] [address] [place] [address] PCP - General Family Medicine 01/01/24
--- NOTE | 2025-07-25 12:00 | NM_ITS ---
APPROVED REPORT Exam: Nuclear Stress Test Indication: Chest pain, HTN, DM, High cholesterol, Family history, CAD Patient Location: Outpatient Stress Tech: Arianne White [place] Tech:Janet Tao ARRT RT(R)(N) Ht: 5 ft 10 in Wt: 204 lbs HR: 81 bpm BP: 138/79 mmHg BSA: 2.10 m2 TID: 1.21 BMI: 29.2 History: Chest pain, HTN, DM, High cholesterol, Family history, CAD Procedure: Patient exercised on Scott protocol 6:11 minutes and sec, resting heart rate 81 bpm, resting blood pressure 138/79 mmHg, with exercise maximum heart rate achived was 134 bpm which is 84 % of the maximum predicted heart rate and blood pressure was 187/80 mmHg. Test was stopped due to SOB. Patient denied any complaint of chest pain. Patient has average exercise capacity, achieved 7.4 METs of workload on treadmill, the blood pressure response to exercise was normal. Cardiac Stress and Resting SPECT Images: Cardiac Stress and Resting SPECT images were obtained using technetium 99m Myoview 31.6 mCi stress and 10.07 mCi at rest. Raw images demonstrate significant soft tissue overlap with the cardiac borders. This may affect the diagnostic interpretation of the study findings. Resting and stress imaging in supine positions demonstrate a medium sized, moderate, fixed perfusion defect in the inferior and anterior LV levine. Neither perfusion defect is seen on prone stress imaging. Findings are suggestive of soft tissue and diaphragmatic attenuation. There is increase in transient ischemic dilatation ratio (TID 1.21), which may be suggestive of possible multivessel disease or balanced ischemia. Gated imaging demonstrates normal global LV systolic function. LVEF is calculated at 62%. Conclusion: Soft tissue and diaphragmatic attenuation are present. There is increase in transient ischemic dilatation ratio (TID 1.21), which may be suggestive of possible multivessel disease or balanced ischemia. Gated imaging demonstrates normal global LV systolic function. LVEF is calculated at 62%. Electronically signed by : Halina Mayen MD 07/29/2025 00:43:28
[2025-07-25 13:10] VITALS: BP 138/79; BP 187/80; PULSE 81; RESP 16
[2025-07-25] MEDS: ISOTOPE MYOVIEW (PER STUDY) 1 DOSE IV (14:09)
[2025-07-25] MEDS: SODIUM CHLORIDE 0.9% 10ML SYR (RAD ONLY) 10 ML IV ×2 (14:09)
== END 2025-07-25 23:59 | disposition home or self-care (01) ==
LOC: RAD 11:52
PROVIDERS: PCP Family Medicine; Visit Provider Nurse Practitioner Family
DX: I49.1 Atrial premature depolarization (principal); I49.3 Ventricular premature depolarization; I25.10 Atherosclerotic heart disease of native coronary artery without angina pectoris; I10 Essential (primary) hypertension; E11.9 Type 2 diabetes mellitus without complications; E78.00 Pure hypercholesterolemia, unspecified; R94.39 Abnormal result of other cardiovascular function study; R94.31 Abnormal electrocardiogram [ECG] [EKG]
CPT/HCPCS: 78452; 93017; 93018; A9502

== ENCOUNTER 2025-08-09 08:28 | Day surgery (SDC) | payer BC, SELFPAY ==
[2025-08-09] VITALS (13 sets, daily range): BP systolic 107–132; BP diastolic 64–83; PULSE 77–93; RESP 18; O2SAT 91–97; BMI 30.1
--- NOTE | 2025-08-09 07:05 | IR_ITS ---
APPROVED REPORT Patient Location: Outpatient PROCEDURES Left heart catheterization Left ventriculogram Selective coronary angiogram Drug-eluting stent deployment to the left anterior descending artery Drug-eluting stent deployment to the ramus intermedius INDICATION Coronary artery disease, Angina pectoris Informed consent was obtained prior to the procedure. COMPLICATIONS NONE Estimated Blood Loss: LESS THAN 10 ML TECHNIQUE One percent lidocaine used to anesthetize the right anterior aspect of the wrist. The right radial artery was accessed via the Seldinger technique. A 6 Kyrgyz sheath was placed in the right radial artery. 2.5 mg of Verapamil, 800 mcg of nitroglycerin, 1mg Lidocaine and 5000 U Heparin were given through the arterial sheath. The JL3 catheter was also used to perform left heart catheterization, left ventriculogram and selective coronary angiogram. At the end the diagnostic angiogram therapeutic heparin was administered giving a therapeutic ACT and the guide catheter was placed in the left anterior descending artery followed by Choice PT extra-support wire placed distally. A 2.25 x 38 mm Franko frontier stent was deployed at 20 thoams reducing the critical stenosis to 0% JEREMIAS-3 flow was present before and after the procedure. The wire was then pulled back and placed into the large ramus intermedius and a 2 mm x 12 mm balloon was used to predilate due to inability to primary stent. A 2 mm x 26 mm Franko frontier stent was placed in the proximal ramus at 20 thomas reducing the critical stenosis to 0%. JEREMIAS-3 flow was present before and after the procedure at the end the procedure the apparatus was removed the sheath was removed and hemostasis was achieved using TR banding patient was transferred to the postop putting in stable condition ANGIOGRAPHIC RESULTS The left main artery Is angiographically normal and extremely short possibly 1 to 2 mm in length The left anterior descending artery Appears to originate from the left main artery although originating in the left coronary cusp is possible. There is an ostial 60% stenosis followed by critical mid vessel 90% tandem stenoses. The LAD gives rise to a large ramus intermedius or first diagonal artery which also has a complex proximal 90% stenosis. The ramus intermedius is equal in size to the LAD itself The circumflex artery Is co-ndominant and may originate from a very short left main artery or originate from the left coronary cusp very close to the LAD takeoff and yet is still large and gives rise to 2 medium to large obtuse marginal arteries. The first obtuse marginal artery is widely patent and distally bifurcates with both branches having proximal 60% stenoses. The second obtuse marginal artery is slightly larger and has a stent in the proximal to mid segment which is widely patent free of in-stent restenosis with excellent proximal distal transitioning The right coronary artery Is codominant has proximal 40% stenoses with distal 30% stenoses with a 50% stenosis in the proximal posterior descending artery The SANTOS ventriculogram reveals Preserved at 55 to 60% The left ventricular end-diastolic pressure 20 mmHg IMPRESSION Severe to critical disease in the mid LAD as described above with successful stenting reducing lesion to 0% with 1 drug-eluting stent Severe to critical disease in an equally large size ramus intermedius equivalent in size to the LAD with successful stenting reducing the lesion to 0% with 1 drug-eluting stent Either a short left main artery or the LAD and circumflex artery having separate ostia which cannot be angiographically with persistent moderate disease in the ostial LAD which is best managed medically at this time as stenting would likely compromise the ostia of the circumflex artery Normal ejection fraction Elevated LVEDP PLAN 1. Dual antiplatelet therapy 2. Aggressive control of diabetes 3. LDL less than 55 to be achieved with high intensity statin 4. Avoidance of tobacco products 5. Risk factor modification 6. Cardiac rehabilitation Electronically signed by : Abraham Fletcher MD 08/09/2025 14:59:14
[2025-08-09 08:52] LABS: Hematocrit 49.6 % (42.0-52.0); Hemoglobin 16.2 g/dL (14.1-18.0); Immature Granulocytes % 0.2 %; Mean Corpuscular HGB Conc 32.7 g/dL (31.8-35.4); Mean Corpuscular Hemoglobin 28.0 pg (27.0-31.2); Mean Corpuscular Volume 85.8 fl (80-94); Nucleated Red Blood Cells % 0 %; Platelet Count 258 K/mm3 (142-424); Red Blood Count 5.78 M/mm3 (4.60-6.20); Red Cell Distribution Width-SD 41.6 fL; White Blood Count 8.8 K/mm3 (4.8-10.8)
[2025-08-09 09:00] LABS: Anion Gap 5.7 mEq/L (5-15); Blood Urea Nitrogen 25 mg/dl (9-20); Calcium 9.2 mg/dl (8.4-10.2); Carbon Dioxide 28 mmol/L (22.0-30.0); Chloride 102 mmol/L (98-107); Creatinine Clearance Estimated 103 mL/min (50-200); Creatinine,Serum 0.90 mg/dl (0.66-1.25); Estimated Glomerular Filt Rate 86 ml/min (>60); GFR (African American) 103 ML/MIN (>60); Glucose 112 mg/dl (74-100); Potassium 3.7 mmoL/L (3.5-5.1); Sodium 132 mmol/L (136-145)
[2025-08-09] MEDS: LIDOCAINE 1% 10ML MDV 10 ML IJ (10:30)
[2025-08-09] MEDS: HEPARIN 1,000 UNITS/500ML NS (CATH LAB) 3000 UNIT IV (10:30)
[2025-08-09] MEDS: NITROGLYCERIN 800MCG/8ML SYR (CATH LAB) 800 MCG IA (10:30)
[2025-08-09] MEDS: 0.9 % SODIUM CHLORIDE 500 ML 25 ML IV (10:31)
[2025-08-09] MEDS: HEPARIN 1,000 UNITS/ML 10ML VIAL (CATH LAB) 5000 UNIT IV ×2 (10:31→10:53)
[2025-08-09] MEDS: VERAPAMIL 2.5MG/ML 2ML VIAL 2.5 MG IV (10:31)
[2025-08-09] MEDS: MIDAZOLAM HCL 1MG/ML 5ML VIAL 1 MG IV (11:06)
[2025-08-09] MEDS: FENTANYL 100MCG/2ML VIAL 50 MCG IV (11:07)
[2025-08-09] MEDS: IOPAMIDOL-370 (76%);100ML BOTTLE 110 ML IV (11:29)
[2025-08-09 11:33] LABS: CATHL Activated Clotting Time 327 SEC (74-125)
== END 2025-08-09 14:46 | disposition home or self-care (01) ==
PROVIDERS: PCP Family Medicine; Visit Provider Internal Medicine
PROC: 4A023N7 Measurement of Cardiac Sampling and Pressure, Left Heart, Percutaneous Approach (ICD-10-PCS; CPT 93452; principal; 2025-08-09 12:15)
DX: I25.118 Atherosclerotic heart disease of native coronary artery with other forms of angina pectoris (principal); R94.39 Abnormal result of other cardiovascular function study; R94.31 Abnormal electrocardiogram [ECG] [EKG]; E11.9 Type 2 diabetes mellitus without complications; I10 Essential (primary) hypertension; E78.5 Hyperlipidemia, unspecified; I25.2 Old myocardial infarction; K21.9 Gastro-esophageal reflux disease without esophagitis; K22.70 Barrett's esophagus without dysplasia; Z95.5 Presence of coronary angioplasty implant and graft; Z82.49 Family history of ischemic heart disease and other diseases of the circulatory system; Z79.3 Long term (current) use of hormonal contraceptives; Z79.84 Long term (current) use of oral hypoglycemic drugs; Z79.82 Long term (current) use of aspirin; Z79.02 Long term (current) use of antithrombotics/antiplatelets; Z79.85 Long-term (current) use of injectable non-insulin antidiabetic drugs; Z79.51 Long term (current) use of inhaled steroids; Z79.899 Other long term (current) drug therapy; Z88.8 Allergy status to other drugs, medicaments and biological substances
CPT/HCPCS: 80048; 85025; 85347; 92928; 92929; 93458; 99152; 99153; C1725; C1769; C1874; C9600; C9601; J1200; J1644; J3010; J7040; Q9967

== ENCOUNTER 2025-08-13 08:21 | Outpatient (CLI) | payer BC, SELFPAY ==
[2025-08-13 08:40] LABS: Hematocrit 51.7 % (42.0-52.0); Hemoglobin 17.2 g/dL (14.1-18.0); Immature Granulocytes % 0.4 %; Mean Corpuscular HGB Conc 33.3 g/dL (31.8-35.4); Mean Corpuscular Hemoglobin 28.3 pg (27.0-31.2); Mean Corpuscular Volume 85.0 fl (80-94); Nucleated Red Blood Cells % 0 %; Platelet Count 289 K/mm3 (142-424); Red Blood Count 6.08 M/mm3 (4.60-6.20); Red Cell Distribution Width-SD 41.9 fL; White Blood Count 7.9 K/mm3 (4.8-10.8)
[2025-08-13 08:56] LABS: Alanine Aminotransferase 38 U/L (12-78); Albumin Level 4.4 g/dl (3.5-5.0); Albumin/Globulin Ratio 2.0 (1.1-1.8); Alkaline Phosphatase 113 U/L (38-126); Anion Gap 9.2 mEq/L (5-15); Aspartate Amino Transferase 23 U/L (17-59); Bilirubin,Total 0.8 mg/dl (0.2-1.3); Blood Urea Nitrogen 20 mg/dl (9-20); Calcium 9.9 mg/dl (8.4-10.2); Carbon Dioxide 29 mmol/L (22.0-30.0); Chloride 103 mmol/L (98-107); Cholesterol 86 mg/dl (140-200); Creatinine,Serum 0.90 mg/dl (0.66-1.25); Estimated Glomerular Filt Rate 86 ml/min (>60); GFR (African American) 103 ML/MIN (>60); Globulin 2.2 g/dL (1.3-3.2); Glucose 127 mg/dl (74-100); HDL Cholesterol 33 mg/dl (40-60); Potassium 4.2 mmoL/L (3.5-5.1); Sodium 137 mmol/L (136-145); Total Protein,Serum 6.6 g/dl (6.3-8.2); Triglycerides 127 mg/dl (30-150)
[2025-08-13 09:34] LABS: Hemoglobin A1C 6.5 % (4.0-6.0)
== END 2025-08-13 23:59 | disposition home or self-care (01) ==
LOC: LAB 08:22
PROVIDERS: Internal Medicine; PCP Family Medicine; Visit Provider Family Medicine
DX: I25.10 Atherosclerotic heart disease of native coronary artery without angina pectoris (principal); E78.5 Hyperlipidemia, unspecified; E11.9 Type 2 diabetes mellitus without complications
CPT/HCPCS: 36415; 80053; 80061; 83036; 85025

== ENCOUNTER → 2025-08-29 14:45 | Outpatient (RCR) | payer BC, SELFPAY | LOC: CR 14:45 | PROVIDERS: PCP Family Medicine; Visit Provider Internal Medicine | DX: Z48.812 Encounter for surgical aftercare following surgery on the circulatory system (principal); Z95.5 Presence of coronary angioplasty implant and graft | CPT/HCPCS: 93798 ==